=== PATIENT | female | born 1935 ===

== ENCOUNTER 2017-04-04 13:04 | Emergency (ER) | payer OTHER ==
[2017-04-04 13:04] VITALS: BMI 25.7
[2017-04-04 13:14] VITALS: BP 130/78; PULSE 81; RESP 18; TEMP 98.3; O2SAT 99
[2017-04-04] MEDS ORDERED: Iohexol 240 (50 ml) PO ONE (14:05)
--- NOTE | 2017-04-04 14:07 | ED PDOC ---
HPI: Abdomen Time Seen by Provider: 04/04/17 13:19 Chief Complaint (Nursing): GI Problem Chief Complaint (Provider): Abdominal Pain History Per: Patient Additional Complaint(s): Black stool and abdominal pain since this morning. Past Medical History Vital Signs: Last Vital Signs Temp 98.3 F 04/04/17 13:13 Pulse 81 04/04/17 13:13 Resp 18 04/04/17 13:13 BP 130/78 04/04/17 13:13 Pulse Ox 99 04/04/17 14:07 - Medical History PMH: Anemia, Anxiety, HTN, Hypercholesterolemia, Osteoporosis Denies: Diabetes, Chronic Kidney Disease - Family History Family History: States: Unknown Family Hx - Immunization History Hx Tetanus Toxoid Vaccination: No Hx Influenza Vaccination: No Hx Pneumococcal Vaccination: No - Home Medications Home Medications: Ambulatory Orders Medication Instructions Recorded ALPRAZolam [Xanax] 0.25 mg PO HS 02/24/16 Cholecalciferol [Vitamin D 1000 IU] 2,000 unit PO DAILY 02/24/16 Dicyclomine [Bentyl] 20 mg PO Q12 PRN #20 tab 02/24/16 Esomeprazole Magnesium [Nexium] 40 mg PO DAILY 02/24/16 Meclizine HCl [Meclizine HCl] 1 tab PO TID PRN 02/24/16 Metoprolol Succinate [Toprol XL] 25 mg PO DAILY 02/24/16 Rosuvastatin Calcium [Crestor] 20 mg PO DAILY 02/24/16 Ciprofloxacin [Cipro] 500 mg PO BID #6 tab 04/04/17 Metronidazole [Flagyl] 500 mg PO BID #14 tab 04/04/17 - Allergies Allergies/Adverse Reactions: Allergies Allergy/AdvReac Type Severity Reaction Status Date / Time Penicillins Allergy RASH Verified 02/24/16 01:12 - Laboratory Results Result Diagrams: 04/04/17 14:30 04/04/17 14:30 - ECG O2 Sat by Pulse Oximetry: 99 Disposition - Clinical Impression Clinical Impression: Colitis - Patient ED Disposition Is Patient to be Admitted: No - Disposition Disposition: Against Medical Advice Disposition Time: 19:53 Condition: STABLE Prescriptions: Ciprofloxacin [Cipro] 500 mg PO BID #6 tab Metronidazole [Flagyl] 500 mg PO BID #14 tab Instructions: Colitis (ED)
--- NOTE | 2017-04-04 14:27 | RAD ---
PROCEDURE: CHEST RADIOGRAPH, 1 VIEW HISTORY: med screening COMPARISON: 02/24/2016 FINDINGS: LUNGS: Clear. PLEURA: No pneumothorax or pleural fluid seen. CARDIOVASCULAR: No radiographic findings to suggest acute or significant cardiovascular disease. OSSEOUS STRUCTURES: No significant abnormalities. VISUALIZED UPPER ABDOMEN: Normal. OTHER FINDINGS: None. IMPRESSION: No active disease. No acute/significant interval changes.
[2017-04-04] MEDS ORDERED: Iohexol 240 (50 ml) ONE (14:38)
[2017-04-04 14:56] LABS: BASO % 0.9 % (0.0-2.0); EOS # 0.2 K/uL (0.0-0.7); EOS % 4.2 % (0.0-4.0); HEMOGLOBIN 10.8 g/dL (12.0-16.0); LYMPH % 22.8 % (20.0-40.0); MEAN CELL VOLUME 93.6 fl (81.0-99.0); MEAN CORPUSCULAR HEMOGLOBIN 32.4 pg (27.0-31.0); MEAN CORPUSCULAR HGB CONC 34.6 g/dL (33.0-37.0); MONO # 0.5 K/uL (0.0-0.8); NEUT # 2.7 K/uL (1.8-7.0); NEUT % 61.1 % (50.0-75.0); NRBC % 0.1 % (0.0-0.0); RBC 3.32 Mil/uL (3.80-5.20); RED CELL DISTRIBUTION WIDTH 13.3 % (11.5-14.5); WHITE BLOOD COUNT 4.5 K/uL (4.8-10.8)
[2017-04-04 15:27] LABS: ALB/GLOB RATIO 1.3 (1.0-2.1); ALBUMIN 4.1 g/dL (3.5-5.0); ALT/SGPT 39 U/L (9-52); AMYLASE 65 U/L (30-110); AST/SGOT 40 U/L (14-36); BLOOD UREA NITROGEN 14 mg/dl (7-17); CALCIUM 9.3 mg/dL (8.4-10.2); GFR AFRICAN-AMERICAN > 60; GFR NON-AFRICAN AMERICAN > 60; LIPASE 48 U/L (23-300)
[2017-04-04] MEDS ORDERED: Iohexol 300 100 ML IJ ONE (17:38)
[2017-04-04] MEDS ORDERED: Sodium Chloride 0.9% 50 ML IV ONE (17:39)
[2017-04-04 18:24] LABS: SQUAMOUS EPITHIAL 1 /hpf (0-5); URINE BILIRUBIN NEGATIVE (NEGATIVE); URINE BLOOD NEGATIVE (NEGATIVE); URINE CLARITY CLEAR (Clear); URINE COLOR COLORLESS (YELLOW); URINE GLUCOSE (UA) NEG (Normal); URINE LEUKOCYTE ESTERASE TRACE Leu/uL (Negative); URINE NITRATE NEGATIVE (NEGATIVE); URINE PROTEIN NEGATIVE (NEGATIVE); URINE UROBILINOGEN 0.2-1.0 mg/dL (0.2-1.0)
--- NOTE | 2017-04-04 18:47 | CT ---
PROCEDURE: CT Abdomen and Pelvis with contrast HISTORY: abdominal pain and melena COMPARISON: None. TECHNIQUE: CT scan of the abdomen and pelvis was performed after administration of intravenous contrast. Oral contrast was administered. Coronal and sagittal reformatted images were obtained. Contrast dose: 90 ml Omnipaque 300 Radiation dose: Total exam DLP = 614.29 MGy-cm. This CT exam was performed using one or more of the following dose reduction techniques: Automated exposure control, adjustment of the mA and/or kV according to patient size, and/or use of iterative reconstruction technique. FINDINGS: LOWER THORAX: There is a calcified nodule in the right middle lobe. There is linear atelectasis/scarring in the lingula and both lower lobes, worse in the right lower lobe. LIVER: The liver is normal in size and there is homogeneous enhancement. There is a 9 mm simple cyst in the left hepatic lobe. No intrahepatic biliary ductal dilatation. GALLBLADDER AND BILE DUCTS: There are no calcified gallstones. PANCREAS: The pancreas is normal in size and there is homogeneous enhancement without focal mass or ductal dilatation. SPLEEN: The spleen is normal in size without focal lesion. ADRENALS: Both adrenal glands are normal in size without discrete nodule. KIDNEYS AND URETERS: Both kidneys are normal in size and there is homogeneous enhancement without hydronephrosis or nephrolithiasis. VASCULATURE: No aortic aneurysm. There are advanced atherosclerotic aortoiliac calcifications. BOWEL: The small bowel loops are normal in caliber. There is mild sigmoid diverticulosis. There is apparent mild mural thickening in the sigmoid colon and rectum. APPENDIX: Normal appendix. PERITONEUM: No free fluid. No free air. LYMPH NODES: No enlarged lymph nodes. BLADDER: Unremarkable. REPRODUCTIVE: The uterus is normal in size. There are few foci of air in the cervical canal. BONES: Diffuse bone demineralization and multilevel degenerative disc disease. No acute fracture. OTHER FINDINGS: There is a small sliding hiatal hernia. IMPRESSION: 1. Mild sigmoid diverticulosis. Apparent mild mural thickening in the sigmoid colon and rectum could represent underdistention or nonspecific acute/ chronic diverticulitis and proctitis. Clinical correlation and follow-up is advised. 2. No evidence of acute appendicitis. 3. No evidence of cholelithiasis or biliary dilatation.
--- NOTE | 2017-04-05 12:40 | CARD ---
APPROVED REPORT EKG Measurement Heart [id number] ID [id number] <Conclusion> Normal sinus rhythm Normal ECG
== END 2017-04-04 20:38 | disposition left against medical advice (07) ==
LOC: H.ER 13:04
DX: K57.30 Diverticulosis of large intestine without perforation or abscess without bleeding (principal)
CPT/HCPCS: 71010; 74177; 80053; 81003; 82150; 83690; 84484; 85025; 93005; 99284; Q9966; Q9967

== ENCOUNTER 2017-10-26 13:35 | Inpatient (IN) | payer MEDICARE, MEDICAID ==
[2017-10-26 13:35] VITALS: BMI 25.7
[2017-10-26] MEDS ORDERED: Sodium Chloride 0.9% 1,000 ML IV STA (13:59)
[2017-10-26 14:43] LABS: ABG ALLEN TEST YES; ARTERIAL BLOOD GAS HCO3 23.7 mmol/L (21-28); ARTERIAL BLOOD GAS HEMOGLOBIN 9.6 g/dL (11.7-17.4); ARTERIAL BLOOD GAS O2 CONTENT 12.9 ML/dL (15-23); ARTERIAL BLOOD GAS O2 SAT 99.5 % (95-98); ARTERIAL BLOOD GAS PCO2 37 mm/Hg (35-45); ARTERIAL BLOOD GAS PO2 70 mm/Hg (80-100)
[2017-10-26 14:47] LABS: BASO % 0.6 % (0.0-2.0); EOS # 0.1 K/uL (0.0-0.7); EOS % 0.9 % (0.0-4.0); HEMOGLOBIN 11.5 g/dL (12.0-16.0); LYMPH # 0.6 K/uL (1.0-4.3); LYMPH % 8.9 % (20.0-40.0); MEAN CELL VOLUME 92.2 fl (81.0-99.0); MEAN CORPUSCULAR HEMOGLOBIN 32.2 pg (27.0-31.0); MEAN CORPUSCULAR HGB CONC 34.9 g/dL (33.0-37.0); MEAN PLATELET VOLUME 9.9 fl (7.2-11.7); MONO # 0.8 K/uL (0.0-0.8); MONO % 10.9 % (0.0-10.0); NEUT # 5.7 K/uL (1.8-7.0); NEUT % 78.7 % (50.0-75.0); NRBC % 0.1 % (0.0-0.0); PLATELET COUNT 194 K/uL (130-400); RBC 3.58 Mil/uL (3.80-5.20); RED CELL DISTRIBUTION WIDTH 13.1 % (11.5-14.5); WHITE BLOOD COUNT 7.3 K/uL (4.8-10.8)
[2017-10-26 15:02] LABS: ALB/GLOB RATIO 1.4 (1.0-2.1); ALBUMIN 4.3 g/dL (3.5-5.0); ALT/SGPT 29 U/L (9-52); AST/SGOT 32 U/L (14-36); BLOOD UREA NITROGEN 11 mg/dl (7-17); CALCIUM 9.6 mg/dL (8.4-10.2); GFR AFRICAN-AMERICAN > 60; GFR NON-AFRICAN AMERICAN > 60; LIPASE 40 U/L (23-300); MAGNESIUM 1.9 MG/DL (1.6-2.3)
[2017-10-26 15:06] LABS: INR 1.1 (0.9-1.2); PARTIAL THROMBOPLASTIN TIME 25.2 Seconds (25.6-37.1); PROTHROMBIN TIME 11.7 Seconds (9.8-13.1)
[2017-10-26] MEDS ORDERED: Etomidate 20 mg/10ml Inj IV STA (15:09)
[2017-10-26] MEDS ORDERED: Etomidate 20 mg/10ml Inj IV ONE (15:14)
[2017-10-26] MEDS ORDERED: Succinylcholine 200 mg/10 ml Inj IV ONE ×2 (15:28→15:43)
[2017-10-26 15:54] LABS: BANDS 3 % (0-2); LYMPHOCYTE 10 % (20-50); MONOCYTE 14 % (0-10); NEUTROPHIL 73 % (42-75); PLATELET ESTIMATE NORMAL (NORMAL); TOTAL CELLS COUNTED 100
[2017-10-26 15:55] LABS: HYPOCHROMIC SLIGHT
--- NOTE | 2017-10-26 15:58 | CT ---
PROCEDURE: CT HEAD WITHOUT CONTRAST. HISTORY: AMS COMPARISON: None available. TECHNIQUE: Axial computed tomography images were obtained through the head/brain without intravenous contrast. Radiation dose: Total exam DLP = 1932.24 mGy-cm. This CT exam was performed using one or more of the following dose reduction techniques: Automated exposure control, adjustment of the mA and/or kV according to patient size, and/or use of iterative reconstruction technique. FINDINGS: HEMORRHAGE: Extra-axial fluid collection/acute subdural hematoma left parietal region. Maximum thickness 12.7 mm. Effacement of cortical sulci on the right. Midline shift is approximately 1.5 cm. There is a large parenchymal hemorrhagic process on the high right parietal region 3.2 x 5.5 cm. There is an additional intraparenchymal hemorrhage interposed between the posterior horn of the left lateral ventricle and the falx. BRAIN: Effacement of basilar cisterns, midline shifts consistent with herniation. VENTRICLES: Eight effacement of the right lateral ventricle. Trapped left lateral ventricle, contralateral dilatation of the left lateral ventricle identified. Edema, mass effect and a component of herniation has efface the 4th ventricle. CALVARIUM: Unremarkable. PARANASAL SINUSES: Unremarkable as visualized. No significant inflammatory changes. MASTOID AIR CELLS: Unremarkable as visualized. No inflammatory changes. OTHER FINDINGS: None. IMPRESSION: 1. Acute right subdural hematoma. 2. Acute right parietal hemorrhage. 3. Acute hemorrhage interposed between the falx and the posterior horn of the left lateral ventricle. 4. Edema, mass effect, 1.5 cm midline shift. Effacement of basilar cisterns and downward herniation identified. Communication of results: Study completed at 15:00. Notification by a Radiology Department personal 15:35. Communication of results at 15:45. I discussed findings directly with Dr. simon montes.
[2017-10-26] MEDS ORDERED: Mannitol 12.5 gm/50 ml Inj IV ONE (16:05)
--- NOTE | 2017-10-26 16:15 | RAD ---
HISTORY: AMS COMPARISON: Chest radiograph dated 04/04/2017. FINDINGS: LUNGS: Right middle lobe calcified granuloma redemonstrated. No active pulmonary disease. PLEURA: No significant pleural effusion identified, no pneumothorax apparent. CARDIOVASCULAR: Atherosclerotic aortic calcifications. Cardiomediastinal silhouette within normal limits. OSSEOUS STRUCTURES: Unchanged. VISUALIZED UPPER ABDOMEN: Normal. OTHER FINDINGS: None. IMPRESSION: No active disease.
[2017-10-26] MEDS ORDERED: Dexamethasone 4 mg/1 ml IV ONE (16:30)
--- NOTE | 2017-10-26 16:42 | ED PDOC ---
HPI: General Adult Time Seen by Provider: 10/26/17 13:58 Chief Complaint (Nursing): Weakness/Neurological Deficit Chief Complaint (Provider): flu like symptoms, AMS History Per: Family (niece), Filling Technician (maria alejandra) History/Exam Limitations: clinical condition Onset/Duration Of Symptoms: Gradual Current Symptoms Are (Timing): Still Present Severity: Severe Recently: Treated By A Physician Additional Complaint(s): 82yo female arrives w/ niece who states pt developed cough yesterday, this morning c/o body aches and fever, becoming weak and on arrival to ED became obtunded. History is limited due to AMS. Patient found to be febrile on arrival. Per niece no falls, focal weakness, change in speech or c/o headache over the last 6 hours. Past Medical History Reviewed: Historical Data, Nursing Documentation, Vital Signs Vital Signs: Last Vital Signs Temp 102.4 F H 10/26/17 14:18 Pulse 106 H 10/26/17 13:49 Resp 21 10/26/17 13:49 BP 158/82 H 10/26/17 13:49 Pulse Ox 97 10/26/17 13:49 - Medical History PMH: Anemia, Anxiety, HTN, Hypercholesterolemia, Osteoporosis Denies: Diabetes, Chronic Kidney Disease - Surgical History Other surgeries: unknown - Family History Family History: States: Unknown Family Hx - Living Arrangements Living Arrangements: With Family - Social History Current smoker - smoking cessation education provided: No - Immunization History Hx Tetanus Toxoid Vaccination: No Hx Influenza Vaccination: No Hx Pneumococcal Vaccination: No - Home Medications Home Medications: Ambulatory Orders Medication Instructions Recorded Metoprolol Succinate [Toprol XL] 25 mg PO DAILY 02/24/16 Alendronate [Fosamax] 70 mg PO QWK 10/26/17 Atorvastatin [Lipitor] 20 mg PO HS 10/26/17 Calcium Carb/Mag Oxide/Zinc Ox 1 tab PO DAILY 10/26/17 [[id number] Caplet] Cholecalciferol (Vitamin D3) 2,000 unit PO DAILY 10/26/17 [Vitamin D3] Ginkgo Biloba [Ginkgo Biloba] 1 cap PO DAILY 10/26/17 Icosapent Ethyl [Vascepa] 1 gm PO BID 10/26/17 Losartan [Cozaar] 25 mg PO DAILY 10/26/17 Meclizine [Antivert] 12.5 mg PO Q8H PRN 10/26/17 - Allergies Allergies/Adverse Reactions: Allergies Allergy/AdvReac Type Severity Reaction Status Date / Time Penicillins Allergy RASH Verified 10/26/17 13:48 Review of Systems Review Of Systems: ROS cannot be obtained secondary to pt's inabilty to answer questions. Physical Exam - Reviewed Nursing Documentation Reviewed: Yes Vital Signs Reviewed: Yes - Physical Exam Appears: Positive for: In Acute Distress (obtunded, localizes to pain) Head Exam: Positive for: ATRAUMATIC, NORMAL INSPECTION, NORMOCEPHALIC Skin: Positive for: Normal Color, Warm, DRY Eye Exam: Positive for: EOMI, Normal appearance, PERRL ENT: Positive for: Normal ENT Inspection Neck: Positive for: Normal, Painless ROM Cardiovascular/Chest: Positive for: Regular Rate, Rhythm Respiratory: Positive for: Other (coarse ). Negative for: Respiratory Distress Gastrointestinal/Abdominal: Positive for: Bowel Sounds, Soft. Negative for: Tenderness Extremity: Positive for: Normal ROM. Negative for: Swelling Neurologic/Psych: Positive for: Other (obtunded, GCS 7, localizes to pain, pupils 2mm b/l sluggish, corneal reflex intact) - Laboratory Results Result Diagrams: 10/26/17 14:20 10/26/17 14:20 - ECG O2 Sat by Pulse Oximetry: 97 Medical Decision Making Medical Decision Making: workup for fever with AMS initiated r/o sepsis, CVA/ICH, dehydration/metabolic derangement, etc. Family denied stroke like symptoms of focal weakness, change in speech or coordination prior to arrival. Became lethargic en route to ED. BP adequate labs obtained ABG CO2 37, mild hypoxia +influenza chem/cbc unremarkable CT brain reviewed CT brain reveals large ICH, Dr Burroughs neurosurgery contacted immediately, case discussed approx [id number]. Will evaluate patient in ED. Dr Quintana neurology contacted, rec decadron and FFP Patient reportedly does not take ASA regularly Family updated on status, concern for life threatening ICH with grave prognosis , but neurosurg to eval for OR candidacy. Dr Nuñez in ED 430p Dr Sargent covering PMD Dr Wang contacted for admission Droplet isolation due to +flu Accession No. : [id number] Patient Name / ID : ISSAC FRIEDMAN T / [id number] Exam Date : 10/26/2017 14:58:26 ( Approved ) Study Comment : Sex / Age : F / 82Y Creator : Henry Be MD Dictator : Henry Be MD Matcher : Molecular Biologist : Henry Be MD Approver2 : Report Date : 10/26/2017 15:56:12 My Comment : PROCEDURE: CT HEAD WITHOUT CONTRAST. HISTORY: AMS COMPARISON: None available. TECHNIQUE: Axial computed tomography images were obtained through the head/brain without intravenous contrast. Radiation dose: Total exam DLP = 1932.24 mGy-cm. This CT exam was performed using one or more of the following dose reduction techniques: Automated exposure control, adjustment of the mA and/or kV according to patient size, and/or use of iterative reconstruction technique. FINDINGS: HEMORRHAGE: Extra-axial fluid collection/acute subdural hematoma left parietal region. Maximum thickness 12.7 mm. Effacement of cortical sulci on the right. Midline shift is approximately 1.5 cm. There is a large parenchymal hemorrhagic process on the high right parietal region 3.2 x 5.5 cm. There is an additional intraparenchymal hemorrhage interposed between the posterior horn of the left lateral ventricle and the falx. BRAIN: Effacement of basilar cisterns, midline shifts consistent with herniation. VENTRICLES: Eight effacement of the right lateral ventricle. Trapped left lateral ventricle , contralateral dilatation of the left lateral ventricle identified. Edema, mass effect and a component of herniation has efface the 4th ventricle. CALVARIUM: Unremarkable. PARANASAL SINUSES: Unremarkable as visualized. No significant inflammatory changes. MASTOID AIR CELLS: Unremarkable as visualized. No inflammatory changes. OTHER FINDINGS: None. IMPRESSION: 1. Acute right subdural hematoma. 2. Acute right parietal hemorrhage. 3. Acute hemorrhage interposed between the falx and the posterior horn of the left lateral ventricle. 4. Edema, mass effect, 1.5 cm midline shift. Effacement of basilar cisterns and downward herniation identified. Communication of results: Study completed at 15:00. Notification by a Radiology Department personal 15:35. Communication of results at 15:45. I discussed findings directly with Dr. simon montes.
[2017-10-26 17:21] LABS: SQUAMOUS EPITHIAL 1 /hpf (0-5); URINE BACTERIA MANY (<OCC); URINE BILIRUBIN NEGATIVE (NEGATIVE); URINE BLOOD NEGATIVE (NEGATIVE); URINE CLARITY SLIGHTY-CLOUDY (Clear); URINE COLOR YELLOW (YELLOW); URINE GLUCOSE (UA) NEG (Normal); URINE LEUKOCYTE ESTERASE TRACE Leu/uL (Negative); URINE NITRATE POSITIVE (NEGATIVE); URINE PROTEIN NEGATIVE (NEGATIVE); URINE UROBILINOGEN 0.2-1.0 mg/dL (0.2-1.0)
--- NOTE | 2017-10-26 17:36 | CP.CCUPN ---
CCU Subjective - Physician Review Subjective (Free Text): 82F with PMH: HTN, on Losartan, ASA; mild Dementia: admitted via ER after family c/o recent cough, body aches, vomiting and progressive lethargy. Initial eval in ER with CT brain showed moderate size R SDH and deep R parietal- occipital intraparenchymal bleed; with associated R hemispheric edema and loss of 4th ventricle. Patient orally intubated in ED after sedation with Succinylcholine and Etomidate. Presently in deep coma, breathing 15 on AC 12, SPO2 100% on 60 oxygen. Febrile to 101.5F, BP 130 systolic, HR 82 in irregular sinus rhythm. Daughter and granddaughters at the bedside. Mannitol and Decadron ordered and awaiting first doses. Daughter denies any recent falls or head trauma over the past several weeks nor recent days. Patient is fully functional with ADLs, ROS: No other pertinent negs or positives on 10+ system review. Allergies: Penicillin Home Meds: Losartan, VIt D, Gingko biloba, Vit D3, Lipitor, Fosamax, Vascepa, Antivert, Toprol XL. PMSFH: All other Nursing and physician documentation reviewed to date; no new pertinent info noted relevant to current medical problems. CXR: #1 clear lung alanis. CXR #2: ETT down LAVON, clear lung alanis, large gastric air. IMPRESSION / MAJOR PROBLEMS NOW: 1. R SDH ( nontraumatic) with R intraparenchymal Hemorrhage with local edema dn midline shift, obliteration of 4th ventricle, and blood seen in left lateral ventricle 2. HTN 3. Influenza Viral Syndrome PLAN: 1. Urgent Neurosurgical and Neurology eval for appropriateness of any surgical intervention. 2. Mannitol, Decadron, AED, trial at Hyperventilation to PCO2 approx 28-30, Neurochecks, Seizure precautions, HOB elevation for now. Repeat brain imaging in AM if no surgical intervention. 3. ?? Contribution of Gingko and ASA use and impact on platelet function. Consider FFP, platelet transfusion. 4. Watch for central DI. 5. Keep Systolic BP no higher than 140; Labetalol prn and / or Cardene infusion. 6. Tamiflu 7. Re-position ETT 3 cm upward; NGT gastric decompression. 7. Notify [facility]. Time spent with this patient did not overlap with any other provider's medical or critical care time. Additionally the code selected for the services rendered in this note includes the time spent: talking to the patients family, associated physicians and reviewing hospital data/results not listed here which extended to a total of 50 minutes. CCU Objective - Vital Signs / Intake & Output Vital Signs (Last 4 hours): Vital Signs Temp Pulse Resp BP Pulse Ox 10/26/17 16:51 99.1 F 88 16 122/68 97 10/26/17 16:49 97 10/26/17 14:18 102.4 F H 10/26/17 13:49 101.5 F H 106 H 21 158/82 H 97 Intake and Output (Last 8hrs): Intake & Output 10/26/17 10/26/17 10/26/17 06:59 14:59 22:59 Weight 135 lb - Physical Exam Head: Positive for: Atraumatic, Normocephalic Pupils: Positive for: Non-Reactive (2 mm size, midline position), Other (no dolls eyes, no corneal reflexes) Conjunctiva: Negative for: Icteric Mouth: Positive for: Moist Mucous Membranes Neck: Positive for: Normal Range of Motion. Negative for: JVD Respiratory/Chest: Positive for: Clear to Auscultation Cardiovascular: Positive for: Regular Rate and Rhythm, Normal S1, S2. Negative for: Murmurs, Rub Abdomen: Positive for: Normal Bowel Sounds. Negative for: Tenderness, Distention, Mass/Organomegaly Lower Extremity: Positive for: Edema, NORMAL PULSES. Negative for: CALF TENDERNESS, Cyanosis Neurological: Positive for: Other (GCS = 3T) Skin: Positive for: Warm, Dry. Negative for: Rashes Psychiatric: Positive for: Other (Comatose) - Patient Studies Lab Studies: Lab Studies 10/26/17 10/26/17 10/26/17 Range/Units 17:00 16:57 14:20 WBC (4.8-10.8) K/uL RBC (3.80-5.20) Mil/uL Hgb (12.0-16.0) g/dL Hct (34.0-47.0) % MCV (81.0-99.0) fl MCH (27.0-31.0) pg MCHC (33.0-37.0) g/dL RDW (11.5-14.5) % Plt Count (130-400) K/uL MPV (7.2-11.7) fl Neut % (Auto) (50.0-75.0) % Lymph % (Auto) (20.0-40.0) % [place] % (Auto) (0.0-10.0) % Eos % (Auto) (0.0-4.0) % Baso % (Auto) (0.0-2.0) % Neut # (Auto) (1.8-7.0) K/uL Lymph # (Auto) (1.0-4.3) K/uL [place] # (Auto) (0.0-0.8) K/uL Eos # (Auto) (0.0-0.7) K/uL Baso # (Auto) (0.0-0.2) K/uL Neutrophils % (Manual) (42-75) % Band Neutrophils % (0-2) % Lymphocytes % (Manual) (20-50) % Monocytes % (Manual) (0-10) % Platelet Estimate (NORMAL) Hypochromasia (manual) PT 11.7 (9.8-13.1) Seconds INR 1.1 (0.9-1.2) APTT 25.2 L (25.6-37.1) Seconds pCO2 (35-45) mm/Hg pO2 (80-100) mm/Hg HCO3 (21-28) mmol/L ABG pH (7.35-7.45) ABG Total CO2 (22-28) mmol/L ABG O2 Saturation (95-98) % ABG O2 Content (15-23) ML/dL ABG Base Excess (-2.0-3.0) mmol/L ABG Hemoglobin (11.7-17.4) g/dL ABG Carboxyhemoglobin (0.5-1.5) % POC ABG HHb (Measured) (0.0-5.0) % ABG Methemoglobin (0.0-3.0) % ABG O2 Capacity (16-24) mL/dL Jed Test A-a O2 Difference mm/Hg Hgb O2 Saturation (95.0-98.0) % FiO2 % Blood Gas Comments Sodium (132-148) mmol/l Potassium (3.6-5.0) MMOL/L Chloride (98-107) mmol/L Carbon Dioxide (22-30) mmol/L Anion Gap (10-20) BUN (7-17) mg/dl Creatinine (0.7-1.2) mg/dl Est GFR ( Amer) Est GFR (Non-Af Amer) POC Glucose (mg/dL) 158 H (65-110) mg/dL Random Glucose (65-105) mg/dL Calcium (8.4-10.2) mg/dL Phosphorus (2.5-4.5) mg/dl Magnesium (1.6-2.3) MG/DL Total Bilirubin (0.2-1.3) mg/dl AST (14-36) U/L ALT (9-52) U/L Alkaline Phosphatase (38-126) U/L Total Protein (6.3-8.2) G/DL Albumin (3.5-5.0) g/dL Globulin (2.2-3.9) gm/dL Albumin/Globulin Ratio (1.0-2.1) Lipase (23-300) U/L Urine Color Yellow (YELLOW) Urine Clarity Slighty-cloudy (Clear) Urine pH 6.0 (5.0-8.0) Ur Specific [place] 1.014 (1.003-1.030) Urine Protein Negative (NEGATIVE) mg/dL Urine Glucose (UA) Neg (Normal) mg/dL Urine Ketones 20 (NEGATIVE) mg/dL Urine Blood Negative (NEGATIVE) Urine Nitrate Positive H (NEGATIVE) Urine Bilirubin Negative (NEGATIVE) Urine Urobilinogen 0.2-1.0 (0.2-1.0) mg/dL Ur Leukocyte Esterase Trace (Negative) Wilbert/uL Urine RBC (Auto) 3 (0-3) /hpf Urine Microscopic WBC 4 (0-5) /hpf Ur Squamous Epith Cells 1 (0-5) /hpf Urine Bacteria Many H (<OCC) Influenza Typ A,B (EIA) (NEGATIVE) 10/26/17 10/26/17 10/26/17 Range/Units 14:20 14:20 14:16 WBC 7.3 D (4.8-10.8) K/uL RBC 3.58 L (3.80-5.20) Mil/uL Hgb 11.5 L (12.0-16.0) g/dL Hct 33.0 L (34.0-47.0) % MCV 92.2 (81.0-99.0) fl MCH 32.2 H (27.0-31.0) pg MCHC 34.9 (33.0-37.0) g/dL RDW 13.1 (11.5-14.5) % Plt Count 194 (130-400) K/uL MPV 9.9 (7.2-11.7) fl Neut % (Auto) 78.7 H (50.0-75.0) % Lymph % (Auto) 8.9 L (20.0-40.0) % [place] % (Auto) 10.9 H (0.0-10.0) % Eos % (Auto) 0.9 (0.0-4.0) % Baso % (Auto) 0.6 (0.0-2.0) % Neut # (Auto) 5.7 (1.8-7.0) K/uL Lymph # (Auto) 0.6 L (1.0-4.3) K/uL [place] # (Auto) 0.8 (0.0-0.8) K/uL Eos # (Auto) 0.1 (0.0-0.7) K/uL Baso # (Auto) 0.0 (0.0-0.2) K/uL Neutrophils % (Manual) 73 (42-75) % Band Neutrophils % 3 H (0-2) % Lymphocytes % (Manual) 10 L (20-50) % Monocytes % (Manual) 14 H (0-10) % Platelet Estimate Normal (NORMAL) Hypochromasia (manual) Slight PT (9.8-13.1) Seconds INR (0.9-1.2) APTT (25.6-37.1) Seconds pCO2 (35-45) mm/Hg pO2 (80-100) mm/Hg HCO3 (21-28) mmol/L ABG pH (7.35-7.45) ABG Total CO2 (22-28) mmol/L ABG O2 Saturation (95-98) % ABG O2 Content (15-23) ML/dL ABG Base Excess (-2.0-3.0) mmol/L ABG Hemoglobin (11.7-17.4) g/dL ABG Carboxyhemoglobin (0.5-1.5) % POC ABG HHb (Measured) (0.0-5.0) % ABG Methemoglobin (0.0-3.0) % ABG O2 Capacity (16-24) mL/dL Jed Test A-a O2 Difference mm/Hg Hgb O2 Saturation (95.0-98.0) % FiO2 % Blood Gas Comments Sodium 132 (132-148) mmol/l Potassium 3.7 (3.6-5.0) MMOL/L Chloride 96 L (98-107) mmol/L Carbon Dioxide 25 (22-30) mmol/L Anion Gap 15 (10-20) BUN 11 (7-17) mg/dl Creatinine 0.6 L (0.7-1.2) mg/dl Est GFR ( Amer) > 60 Est GFR (Non-Af Amer) > 60 POC Glucose (mg/dL) (65-110) mg/dL Random Glucose 132 H (65-105) mg/dL Calcium 9.6 (8.4-10.2) mg/dL Phosphorus 3.5 (2.5-4.5) mg/dl Magnesium 1.9 (1.6-2.3) MG/DL Total Bilirubin 0.6 (0.2-1.3) mg/dl AST 32 (14-36) U/L ALT 29 (9-52) U/L Alkaline Phosphatase 74 (38-126) U/L Total Protein 7.3 (6.3-8.2) G/DL Albumin 4.3 (3.5-5.0) g/dL Globulin 3.0 (2.2-3.9) gm/dL Albumin/Globulin Ratio 1.4 (1.0-2.1) Lipase 40 (23-300) U/L Urine Color (YELLOW) Urine Clarity (Clear) Urine pH (5.0-8.0) Ur Specific [place] (1.003-1.030) Urine Protein (NEGATIVE) mg/dL Urine Glucose (UA) (Normal) mg/dL Urine Ketones (NEGATIVE) mg/dL Urine Blood (NEGATIVE) Urine Nitrate (NEGATIVE) Urine Bilirubin (NEGATIVE) Urine Urobilinogen (0.2-1.0) mg/dL Ur Leukocyte Esterase (Negative) Wilbert/uL Urine RBC (Auto) (0-3) /hpf Urine Microscopic WBC (0-5) /hpf Ur Squamous Epith Cells (0-5) /hpf Urine Bacteria (<OCC) Influenza Typ A,B (EIA) Pos for influenza a H (NEGATIVE) 10/26/17 10/26/17 Range/Units 14:09 13:58 WBC (4.8-10.8) K/uL RBC (3.80-5.20) Mil/uL Hgb (12.0-16.0) g/dL Hct (34.0-47.0) % MCV (81.0-99.0) fl MCH (27.0-31.0) pg MCHC (33.0-37.0) g/dL RDW (11.5-14.5) % Plt Count (130-400) K/uL MPV (7.2-11.7) fl Neut % (Auto) (50.0-75.0) % Lymph % (Auto) (20.0-40.0) % [place] % (Auto) (0.0-10.0) % Eos % (Auto) (0.0-4.0) % Baso % (Auto) (0.0-2.0) % Neut # (Auto) (1.8-7.0) K/uL Lymph # (Auto) (1.0-4.3) K/uL [place] # (Auto) (0.0-0.8) K/uL Eos # (Auto) (0.0-0.7) K/uL Baso # (Auto) (0.0-0.2) K/uL Neutrophils % (Manual) (42-75) % Band Neutrophils % (0-2) % Lymphocytes % (Manual) (20-50) % Monocytes % (Manual) (0-10) % Platelet Estimate (NORMAL) Hypochromasia (manual) PT (9.8-13.1) Seconds INR (0.9-1.2) APTT (25.6-37.1) Seconds pCO2 37 (35-45) mm/Hg pO2 70 L (80-100) mm/Hg HCO3 23.7 (21-28) mmol/L ABG pH 7.40 (7.35-7.45) ABG Total CO2 24.0 (22-28) mmol/L ABG O2 Saturation 99.5 H (95-98) % ABG O2 Content 12.9 L (15-23) ML/dL ABG Base Excess -1.6 (-2.0-3.0) mmol/L ABG Hemoglobin 9.6 L (11.7-17.4) g/dL ABG Carboxyhemoglobin 2.7 H (0.5-1.5) % POC ABG HHb (Measured) 0.5 (0.0-5.0) % ABG Methemoglobin 1.9 (0.0-3.0) % ABG O2 Capacity 13.0 L (16-24) mL/dL Jed Test Yes A-a O2 Difference 119.0 mm/Hg Hgb O2 Saturation 94.8 L (95.0-98.0) % FiO2 33.0 % Blood Gas Comments 3l/m nc,rr Sodium (132-148) mmol/l Potassium (3.6-5.0) MMOL/L Chloride (98-107) mmol/L Carbon Dioxide (22-30) mmol/L Anion Gap (10-20) BUN (7-17) mg/dl Creatinine (0.7-1.2) mg/dl Est GFR ( Amer) Est GFR (Non-Af Amer) POC Glucose (mg/dL) 128 H (65-110) mg/dL Random Glucose (65-105) mg/dL Calcium (8.4-10.2) mg/dL Phosphorus (2.5-4.5) mg/dl Magnesium (1.6-2.3) MG/DL Total Bilirubin (0.2-1.3) mg/dl AST (14-36) U/L ALT (9-52) U/L Alkaline Phosphatase (38-126) U/L Total Protein (6.3-8.2) G/DL Albumin (3.5-5.0) g/dL Globulin (2.2-3.9) gm/dL Albumin/Globulin Ratio (1.0-2.1) Lipase (23-300) U/L Urine Color (YELLOW) Urine Clarity (Clear) Urine pH (5.0-8.0) Ur Specific [place] (1.003-1.030) Urine Protein (NEGATIVE) mg/dL Urine Glucose (UA) (Normal) mg/dL Urine Ketones (NEGATIVE) mg/dL Urine Blood (NEGATIVE) Urine Nitrate (NEGATIVE) Urine Bilirubin (NEGATIVE) Urine Urobilinogen (0.2-1.0) mg/dL Ur Leukocyte Esterase (Negative) Wilbert/uL Urine RBC (Auto) (0-3) /hpf Urine Microscopic WBC (0-5) /hpf Ur Squamous Epith Cells (0-5) /hpf Urine Bacteria (<OCC) Influenza Typ A,B (EIA) (NEGATIVE) Laboratory Results - last 24 hr 10/26/17 10/26/17 10/26/17 13:58 14:09 14:16 WBC RBC Hgb Hct MCV MCH MCHC RDW Plt Count MPV Neut % (Auto) Lymph % (Auto) [place] % (Auto) Eos % (Auto) Baso % (Auto) Neut # (Auto) Lymph # (Auto) [place] # (Auto) Eos # (Auto) Baso # (Auto) Neutrophils % (Manual) Band Neutrophils % Lymphocytes % (Manual) Monocytes % (Manual) Platelet Estimate Hypochromasia (manual) PT INR APTT pCO2 37 pO2 70 L HCO3 23.7 ABG pH 7.40 ABG Total CO2 24.0 ABG O2 Saturation 99.5 H ABG O2 Content 12.9 L ABG Base Excess -1.6 ABG Hemoglobin 9.6 L ABG Carboxyhemoglobin 2.7 H POC ABG HHb (Measured) 0.5 ABG Methemoglobin 1.9 ABG O2 Capacity 13.0 L Jed Test Yes A-a O2 Difference 119.0 Hgb O2 Saturation 94.8 L FiO2 33.0 Blood Gas Comments 3l/m nc,rr Sodium Potassium Chloride Carbon Dioxide Anion Gap BUN Creatinine Est GFR ( Amer) Est GFR (Non-Af Amer) POC Glucose (mg/dL) 128 H Random Glucose Calcium Phosphorus Magnesium Total Bilirubin AST ALT Alkaline Phosphatase Total Protein Albumin Globulin Albumin/Globulin Ratio Lipase Urine Color Urine Clarity Urine pH Ur Specific [place] Urine Protein Urine Glucose (UA) Urine Ketones Urine Blood Urine Nitrate Urine Bilirubin Urine Urobilinogen Ur Leukocyte Esterase Urine RBC (Auto) Urine Microscopic WBC Ur Squamous Epith Cells Urine Bacteria Influenza Typ A,B (EIA) Pos for influenza a H 10/26/17 10/26/17 10/26/17 14:20 14:20 14:20 WBC 7.3 D RBC 3.58 L Hgb 11.5 L Hct 33.0 L MCV 92.2 MCH 32.2 H MCHC 34.9 RDW 13.1 Plt Count 194 MPV 9.9 Neut % (Auto) 78.7 H Lymph % (Auto) 8.9 L [place] % (Auto) 10.9 H Eos % (Auto) 0.9 Baso % (Auto) 0.6 Neut # (Auto) 5.7 Lymph # (Auto) 0.6 L [place] # (Auto) 0.8 Eos # (Auto) 0.1 Baso # (Auto) 0.0 Neutrophils % (Manual) 73 Band Neutrophils % 3 H Lymphocytes % (Manual) 10 L Monocytes % (Manual) 14 H Platelet Estimate Normal Hypochromasia (manual) Slight PT 11.7 INR 1.1 APTT 25.2 L pCO2 pO2 HCO3 ABG pH ABG Total CO2 ABG O2 Saturation ABG O2 Content ABG Base Excess ABG Hemoglobin ABG Carboxyhemoglobin POC ABG HHb (Measured) ABG Methemoglobin ABG O2 Capacity Jed Test A-a O2 Difference Hgb O2 Saturation FiO2 Blood Gas Comments Sodium 132 Potassium 3.7 Chloride 96 L Carbon Dioxide 25 Anion Gap 15 BUN 11 Creatinine 0.6 L Est GFR ( Amer) > 60 Est GFR (Non-Af Amer) > 60 POC Glucose (mg/dL) Random Glucose 132 H Calcium 9.6 Phosphorus 3.5 Magnesium 1.9 Total Bilirubin 0.6 AST 32 ALT 29 Alkaline Phosphatase 74 Total Protein 7.3 Albumin 4.3 Globulin 3.0 Albumin/Globulin Ratio 1.4 Lipase 40 Urine Color Urine Clarity Urine pH Ur Specific [place] Urine Protein Urine Glucose (UA) Urine Ketones Urine Blood Urine Nitrate Urine Bilirubin Urine Urobilinogen Ur Leukocyte Esterase Urine RBC (Auto) Urine Microscopic WBC Ur Squamous Epith Cells Urine Bacteria Influenza Typ A,B (EIA) 10/26/17 10/26/17 16:57 17:00 WBC RBC Hgb Hct MCV MCH MCHC RDW Plt Count MPV Neut % (Auto) Lymph % (Auto) [place] % (Auto) Eos % (Auto) Baso % (Auto) Neut # (Auto) Lymph # (Auto) [place] # (Auto) Eos # (Auto) Baso # (Auto) Neutrophils % (Manual) Band Neutrophils % Lymphocytes % (Manual) Monocytes % (Manual) Platelet Estimate Hypochromasia (manual) PT INR APTT pCO2 pO2 HCO3 ABG pH ABG Total CO2 ABG O2 Saturation ABG O2 Content ABG Base Excess ABG Hemoglobin ABG Carboxyhemoglobin POC ABG HHb (Measured) ABG Methemoglobin ABG O2 Capacity Jed Test A-a O2 Difference Hgb O2 Saturation FiO2 Blood Gas Comments Sodium Potassium Chloride Carbon Dioxide Anion Gap BUN Creatinine Est GFR ( Amer) Est GFR (Non-Af Amer) POC Glucose (mg/dL) 158 H Random Glucose Calcium Phosphorus Magnesium Total Bilirubin AST ALT Alkaline Phosphatase Total Protein Albumin Globulin Albumin/Globulin Ratio Lipase Urine Color Yellow Urine Clarity Slighty-cloudy Urine pH 6.0 Ur Specific [place] 1.014 Urine Protein Negative Urine Glucose (UA) Neg Urine Ketones 20 Urine Blood Negative Urine Nitrate Positive H Urine Bilirubin Negative Urine Urobilinogen 0.2-1.0 Ur Leukocyte Esterase Trace Urine RBC (Auto) 3 Urine Microscopic WBC 4 Ur Squamous Epith Cells 1 Urine Bacteria Many H Influenza Typ A,B (EIA) Fingerstick Blood Sugar Results: 158 Review of Systems - Review of Systems Systems not reviewed;Unavailable: Intubated Critical Care Progress Note - Ventilator Checklist Head of Bed 30 Degrees: Yes Daily Sedation Vacation: No Daily Assessment of Readiness to Wean: No Daily Spontaneous Breathing Trial: No PUD Prophalyxis: Yes DVT Prophylaxis: Yes Oral Care with Chlorhexidine Gluconate {CHG}: Yes - Vent Settings MODE:: ASSIST CONTROL TIDAL VOLUME:: 450 RESP RATE:: 12 FIO2:: 60 PEEP:: 5 - Extremities/Vascular Does the Patient have a Central Venous Catheter?: No Does the Patient need a Central Venous Catheter?: No Does the Patient have a Cano Catheter?: Yes Does the Patient need a Cano Catheter?: Yes Catheter Insertion Criteria: Need for accurate measurement of output in critically ill patient - Prophylaxis GI Prophylaxis GI: PPI - Prophylaxis DVT Prophylaxis DVT: SCDs
--- NOTE | 2017-10-26 17:39 | RAD ---
HISTORY: Status post intubation. COMPARISON: 10/26/2009 at 14:10 FINDINGS: LUNGS: No active pulmonary disease. PLEURA: No significant pleural effusion identified, no pneumothorax apparent. CARDIOVASCULAR: Normal. OSSEOUS STRUCTURES: No significant abnormalities. VISUALIZED UPPER ABDOMEN: Normal. OTHER FINDINGS: Low lying endotracheal tube, the tip is in the right mainstem bronchus. IMPRESSION: No active disease. Low lying endotracheal tube. For optimal placement above the eloy the should be retracted approximately 5 cm. Communication of results: I discussed findings directly with the attending physician in the emergency department Dr. Lawton.
[2017-10-26] MEDS ORDERED: Mannitol 12.5 gm/50 ml Inj IV SCH (17:45)
[2017-10-26] MEDS ORDERED: Labetalol 5 mg/ml Inj 20ML IVP PRN (17:53)
[2017-10-26] MEDS ORDERED: Dexamethasone 4 mg/1 ml IV SCH (19:00)
[2017-10-26] MEDS ORDERED: Chlorhexidine Gluconate 1 APPL/PKT TP ONE (19:48)
[2017-10-26] MEDS ORDERED: Dexamethasone 6 MG in Sodium Chloride 0.9% 50 ML IVPB SCH (22:00)
[2017-10-26] MEDS: levETIRAcetam 500 MG in Sodium Chloride 0.9% 100 ML IVPB SCH (22:53)
[2017-10-26] MEDS: Insulin Regular 100 units/ml SC SCH (23:05)
[2017-10-27] MEDS: Dexamethasone 4 mg/1 ml IV SCH ×2 (02:15→09:19)
[2017-10-27 05:40] LABS: BASO % 0.3 % (0.0-2.0); HEMOGLOBIN 9.4 g/dL (12.0-16.0); LYMPH # 0.3 K/uL (1.0-4.3); MEAN CELL VOLUME 93.5 fl (81.0-99.0); MEAN CORPUSCULAR HEMOGLOBIN 32.1 pg (27.0-31.0); MEAN CORPUSCULAR HGB CONC 34.3 g/dL (33.0-37.0); MEAN PLATELET VOLUME 9.1 fl (7.2-11.7); MONO # 0.5 K/uL (0.0-0.8); MONO % 4.9 % (0.0-10.0); NEUT # 9.2 K/uL (1.8-7.0); NEUT % 91.8 % (50.0-75.0); PLATELET COUNT 122 K/uL (130-400); RBC 2.94 Mil/uL (3.80-5.20); RED CELL DISTRIBUTION WIDTH 12.8 % (11.5-14.5); WHITE BLOOD COUNT 10.1 K/uL (4.8-10.8)
[2017-10-27 05:55] LABS: ABG ALLEN TEST YES; ARTERIAL BLOOD GAS HCO3 27.7 mmol/L (21-28); ARTERIAL BLOOD GAS O2 SAT 99.7 % (95-98); ARTERIAL BLOOD GAS PCO2 40 mm/Hg (35-45); ARTERIAL BLOOD GAS PH 7.45 (7.35-7.45); ARTERIAL BLOOD GAS PO2 117 mm/Hg (80-100)
[2017-10-27 05:58] LABS: ALB/GLOB RATIO 1.3 (1.0-2.1); ALBUMIN 4.1 g/dL (3.5-5.0); ALT/SGPT 27 U/L (9-52); AST/SGOT 36 U/L (14-36); BLOOD UREA NITROGEN 12 mg/dl (7-17); CALCIUM 9.5 mg/dL (8.4-10.2); GFR AFRICAN-AMERICAN > 60; GFR NON-AFRICAN AMERICAN > 60
[2017-10-27] MEDS: Mannitol 12.5 gm/50 ml Inj IV SCH ×3 (06:06→23:01)
[2017-10-27 06:15] LABS: PROTHROMBIN TIME 11.3 Seconds (9.8-13.1)
[2017-10-27 06:16] LABS: PARTIAL THROMBOPLASTIN TIME 27.2 Seconds (25.6-37.1)
[2017-10-27] MEDS: Insulin Regular 100 units/ml SC SCH ×3 (06:59→23:46)
--- NOTE | 2017-10-27 07:44 | CON ---
DATE: 10/26/2017 HISTORY OF PRESENT ILLNESS: This is an 83-year-old lady that actually presented to the ER with symptoms of flu. Apparently, just upon arriving here in the ER, she deteriorated neurologically, CT scan was done which showed a massive intracranial hemorrhage. The patient rapidly deteriorated, requiring intubation and continues to deteriorate. Her past medical history, social history, medications all reviewed in the EMR. PHYSICAL EXAMINATION GENERAL: The patient is now basically a [place] Coma Score of 40. She is actively decerebrating. Her pupils are pinpoint. There are weak corneal bilaterally. No Doll's eyes. She decerebrates to gag and decerebrates in all 4 extremities to noxious. LABORATORY DATA: CT brain shows a massive right central intraparenchymal hemorrhage which also was involved rupture through the cortical surface into the subdural space producing a moderate sized acute subdural hematoma. There was also subarachnoid blood and there was intraventricular blood. The patient is basically radiographically and clinically herniated. IMPRESSION AND PLAN: Unfortunately, this patient is beyond salvaging. I had a long discussion with the family about the circumstance who certainly seems to understand that. I discussed this case as well with the financial planning assistant. RECOMMENDATION: My recommendation is certainly not to initiate any aggressive treatment. I educated to the family. It is up to them whether they want to withdraw life support. Again, situation is essentially hopeless. Jose Burroughs MD
--- NOTE | 2017-10-27 08:56 | CP.PCM.HP ---
<Karl Sutton - Last Filed: 10/27/17 16:28> History of Present Illness - History of Present Illness History of Present Illness: History obtained from chart due to patients condition 82 YO F w/ w/ PMH of HTN had came to the ER for cough, body aches, vomiting and lethargy. In the ER on CT she was noted to have moderate size Sub dural hematoma and a Right parietal occipital intracranial bleed. Patient was intubated in the ER. Family member deny patient having any head trauma recently. Nurosurgery was called: however after assessing patient they do not believe surgical intervention is appropriate at this time. PMD: Dr. Sargent Poor prognosis Present on Admission - Present on Admission Any Indicators Present on Admission: No Past Patient History - Infectious Disease Hx of Infectious Diseases: None - Past Social History Smoking Status: Never Smoked - CARDIAC Hx Hypercholesterolemia: Yes Hx Hypertension: Yes - PULMONARY Hx Respiratory Disorders: No - NEUROLOGICAL Hx Neurological Disorder: No - HEENT Hx HEENT Problems: No - RENAL Hx Chronic Kidney Disease: No - ENDOCRINE/METABOLIC Hx Endocrine Disorders: No - HEMATOLOGICAL/ONCOLOGICAL Hx AIDS: No Hx Human Immunodeficiency Virus (HIV): No - INTEGUMENTARY Hx Dermatological Problems: No - MUSCULOSKELETAL/RHEUMATOLOGICAL Hx Falls: No - GENITOURINARY/GYNECOLOGICAL Hx Genitourinary Disorders: No - PSYCHIATRIC Hx Substance Use: No - SURGICAL HISTORY Hx Surgeries: Yes Other/Comment: vaginal sling. - ANESTHESIA Hx Anesthesia: Yes Hx Anesthesia Reactions: No Meds Allergies/Adverse Reactions: Allergies Allergy/AdvReac Type Severity Reaction Status Date / Time Penicillins Allergy RASH Verified 10/26/17 13:48 Physical Exam - Head Exam Head Exam: ATRAUMATIC, NORMOCEPHALIC - ENT Exam ENT Exam: Mucous Membranes Moist - Respiratory Exam Respiratory Exam: Clear to Auscultation Bilateral, NORMAL BREATHING PATTERN. absent: Rhonchi, Wheezes - Cardiovascular Exam Cardiovascular Exam: REGULAR RHYTHM, +S1, +S2 - GI/Abdominal Exam GI & Abdominal Exam: Distended, Soft - Neurological Exam Additional comments: Pin point pupils, not reactive to light No corneal reflex - Not responding to painful stimuli Results - Vital Signs Recent Vital Signs: Last Vital Signs Temp 98.3 F 10/27/17 04:00 Pulse 62 10/27/17 06:00 Resp 22 10/27/17 06:00 BP 166/71 H 10/27/17 06:00 Pulse Ox 100 10/27/17 06:00 - Labs Result Diagrams: 10/27/17 05:15 10/27/17 05:15 Labs: Laboratory Results - last 24 hr 10/26/17 10/26/17 10/26/17 13:58 14:09 14:16 WBC RBC Hgb Hct MCV MCH MCHC RDW Plt Count MPV Neut % (Auto) Lymph % (Auto) [place] % (Auto) Eos % (Auto) Baso % (Auto) Neut # (Auto) Lymph # (Auto) [place] # (Auto) Eos # (Auto) Baso # (Auto) Neutrophils % (Manual) Band Neutrophils % Lymphocytes % (Manual) Monocytes % (Manual) Platelet Estimate Hypochromasia (manual) PT INR APTT pCO2 37 pO2 70 L HCO3 23.7 ABG pH 7.40 ABG Total CO2 24.0 ABG O2 Saturation 99.5 H ABG O2 Content 12.9 L ABG Base Excess -1.6 ABG Hemoglobin 9.6 L ABG Carboxyhemoglobin 2.7 H POC ABG HHb (Measured) 0.5 ABG Methemoglobin 1.9 ABG O2 Capacity 13.0 L Jed Test Yes ABG Potassium A-a O2 Difference 119.0 Hgb O2 Saturation 94.8 L Glucose Lactate Vent Mode Mechanical Rate FiO2 33.0 Tidal Volume PEEP Blood Gas Comments 3l/m nc,rr Sodium Potassium Chloride Carbon Dioxide Anion Gap BUN Creatinine Est GFR ( Amer) Est GFR (Non-Af Amer) POC Glucose (mg/dL) 128 H Random Glucose Serum Osmolality Calcium Phosphorus Magnesium Total Bilirubin AST ALT Alkaline Phosphatase Total Protein Albumin Globulin Albumin/Globulin Ratio Lipase Vitamin B12 TSH 3rd Generation Arterial Blood Potassium Urine Color Urine Clarity Urine pH Ur Specific [place] Urine Protein Urine Glucose (UA) Urine Ketones Urine Blood Urine Nitrate Urine Bilirubin Urine Urobilinogen Ur Leukocyte Esterase Urine RBC (Auto) Urine Microscopic WBC Ur Squamous Epith Cells Urine Bacteria Influenza Typ A,B (EIA) Pos for influenza a H Blood Type Blood Type Confirm Antibody Screen BBK History Checked 10/26/17 10/26/17 10/26/17 14:20 14:20 14:20 WBC 7.3 D RBC 3.58 L Hgb 11.5 L Hct 33.0 L MCV 92.2 MCH 32.2 H MCHC 34.9 RDW 13.1 Plt Count 194 MPV 9.9 Neut % (Auto) 78.7 H Lymph % (Auto) 8.9 L [place] % (Auto) 10.9 H Eos % (Auto) 0.9 Baso % (Auto) 0.6 Neut # (Auto) 5.7 Lymph # (Auto) 0.6 L [place] # (Auto) 0.8 Eos # (Auto) 0.1 Baso # (Auto) 0.0 Neutrophils % (Manual) 73 Band Neutrophils % 3 H Lymphocytes % (Manual) 10 L Monocytes % (Manual) 14 H Platelet Estimate Normal Hypochromasia (manual) Slight PT 11.7 INR 1.1 APTT 25.2 L pCO2 pO2 HCO3 ABG pH ABG Total CO2 ABG O2 Saturation ABG O2 Content ABG Base Excess ABG Hemoglobin ABG Carboxyhemoglobin POC ABG HHb (Measured) ABG Methemoglobin ABG O2 Capacity Jed Test ABG Potassium A-a O2 Difference Hgb O2 Saturation Glucose Lactate Vent Mode Mechanical Rate FiO2 Tidal Volume PEEP Blood Gas Comments Sodium 132 Potassium 3.7 Chloride 96 L Carbon Dioxide 25 Anion Gap 15 BUN 11 Creatinine 0.6 L Est GFR ( Amer) > 60 Est GFR (Non-Af Amer) > 60 POC Glucose (mg/dL) Random Glucose 132 H Serum Osmolality Calcium 9.6 Phosphorus 3.5 Magnesium 1.9 Total Bilirubin 0.6 AST 32 ALT 29 Alkaline Phosphatase 74 Total Protein 7.3 Albumin 4.3 Globulin 3.0 Albumin/Globulin Ratio 1.4 Lipase 40 Vitamin B12 TSH 3rd Generation Arterial Blood Potassium Urine Color Urine Clarity Urine pH Ur Specific [place] Urine Protein Urine Glucose (UA) Urine Ketones Urine Blood Urine Nitrate Urine Bilirubin Urine Urobilinogen Ur Leukocyte Esterase Urine RBC (Auto) Urine Microscopic WBC Ur Squamous Epith Cells Urine Bacteria Influenza Typ A,B (EIA) Blood Type Blood Type Confirm Antibody Screen BBK History Checked 10/26/17 10/26/17 10/26/17 16:57 17:00 20:15 WBC RBC Hgb Hct MCV MCH MCHC RDW Plt Count MPV Neut % (Auto) Lymph % (Auto) [place] % (Auto) Eos % (Auto) Baso % (Auto) Neut # (Auto) Lymph # (Auto) [place] # (Auto) Eos # (Auto) Baso # (Auto) Neutrophils % (Manual) Band Neutrophils % Lymphocytes % (Manual) Monocytes % (Manual) Platelet Estimate Hypochromasia (manual) PT INR APTT pCO2 pO2 HCO3 ABG pH ABG Total CO2 ABG O2 Saturation ABG O2 Content ABG Base Excess ABG Hemoglobin ABG Carboxyhemoglobin POC ABG HHb (Measured) ABG Methemoglobin ABG O2 Capacity Jed Test ABG Potassium A-a O2 Difference Hgb O2 Saturation Glucose Lactate Vent Mode Mechanical Rate FiO2 Tidal Volume PEEP Blood Gas Comments Sodium Potassium Chloride Carbon Dioxide Anion Gap BUN Creatinine Est GFR ( Amer) Est GFR (Non-Af Amer) POC Glucose (mg/dL) 158 H Random Glucose Serum Osmolality Calcium Phosphorus Magnesium Total Bilirubin AST ALT Alkaline Phosphatase Total Protein Albumin Globulin Albumin/Globulin Ratio Lipase Vitamin B12 TSH 3rd Generation Arterial Blood Potassium Urine Color Yellow Urine Clarity Slighty-cloudy Urine pH 6.0 Ur Specific [place] 1.014 Urine Protein Negative Urine Glucose (UA) Neg Urine Ketones 20 Urine Blood Negative Urine Nitrate Positive H Urine Bilirubin Negative Urine Urobilinogen 0.2-1.0 Ur Leukocyte Esterase Trace Urine RBC (Auto) 3 Urine Microscopic WBC 4 Ur Squamous Epith Cells 1 Urine Bacteria Many H Influenza Typ A,B (EIA) Blood Type O POSITIVE Blood Type Confirm Antibody Screen Negative BBK History Checked No verified bt 10/26/17 10/26/17 10/27/17 20:55 21:12 05:00 WBC RBC Hgb Hct MCV MCH MCHC RDW Plt Count MPV Neut % (Auto) Lymph % (Auto) [place] % (Auto) Eos % (Auto) Baso % (Auto) Neut # (Auto) Lymph # (Auto) [place] # (Auto) Eos # (Auto) Baso # (Auto) Neutrophils % (Manual) Band Neutrophils % Lymphocytes % (Manual) Monocytes % (Manual) Platelet Estimate Hypochromasia (manual) PT INR APTT pCO2 pO2 HCO3 ABG pH ABG Total CO2 ABG O2 Saturation ABG O2 Content ABG Base Excess ABG Hemoglobin ABG Carboxyhemoglobin POC ABG HHb (Measured) ABG Methemoglobin ABG O2 Capacity Jed Test ABG Potassium A-a O2 Difference Hgb O2 Saturation Glucose Lactate Vent Mode Mechanical Rate FiO2 Tidal Volume PEEP Blood Gas Comments Sodium Potassium Chloride Carbon Dioxide Anion Gap BUN Creatinine Est GFR ( Amer) Est GFR (Non-Af Amer) POC Glucose (mg/dL) 137 H Random Glucose Serum Osmolality Calcium Phosphorus Magnesium Total Bilirubin AST ALT Alkaline Phosphatase Total Protein Albumin Globulin Albumin/Globulin Ratio Lipase Vitamin B12 437 TSH 3rd Generation 0.75 Arterial Blood Potassium Urine Color Urine Clarity Urine pH Ur Specific [place] Urine Protein Urine Glucose (UA) Urine Ketones Urine Blood Urine Nitrate Urine Bilirubin Urine Urobilinogen Ur Leukocyte Esterase Urine RBC (Auto) Urine Microscopic WBC Ur Squamous Epith Cells Urine Bacteria Influenza Typ A,B (EIA) Blood Type Blood Type Confirm O POSITIVE Antibody Screen BBK History Checked 10/27/17 10/27/17 10/27/17 05:15 05:15 05:15 WBC 10.1 RBC 2.94 L Hgb 9.4 L D Hct 27.5 L MCV 93.5 MCH 32.1 H MCHC 34.3 RDW 12.8 Plt Count 122 L D MPV 9.1 Neut % (Auto) 91.8 H Lymph % (Auto) 3.0 L [place] % (Auto) 4.9 Eos % (Auto) 0.0 Baso % (Auto) 0.3 Neut # (Auto) 9.2 H Lymph # (Auto) 0.3 L [place] # (Auto) 0.5 Eos # (Auto) 0.0 Baso # (Auto) 0.0 Neutrophils % (Manual) Band Neutrophils % Lymphocytes % (Manual) Monocytes % (Manual) Platelet Estimate Hypochromasia (manual) PT INR APTT pCO2 pO2 HCO3 ABG pH ABG Total CO2 ABG O2 Saturation ABG O2 Content ABG Base Excess ABG Hemoglobin ABG Carboxyhemoglobin POC ABG HHb (Measured) ABG Methemoglobin ABG O2 Capacity Jed Test ABG Potassium A-a O2 Difference Hgb O2 Saturation Glucose Lactate Vent Mode Mechanical Rate FiO2 Tidal Volume PEEP Blood Gas Comments Sodium 135 Potassium 3.4 L Chloride 97 L Carbon Dioxide 27 Anion Gap 14 BUN 12 Creatinine 0.7 Est GFR ( Amer) > 60 Est GFR (Non-Af Amer) > 60 POC Glucose (mg/dL) Random Glucose 166 H Serum Osmolality 296 Calcium 9.5 Phosphorus Magnesium Total Bilirubin 0.4 AST 36 ALT 27 Alkaline Phosphatase 62 Total Protein 7.2 Albumin 4.1 Globulin 3.2 Albumin/Globulin Ratio 1.3 Lipase Vitamin B12 TSH 3rd Generation Arterial Blood Potassium Urine Color Urine Clarity Urine pH Ur Specific [place] Urine Protein Urine Glucose (UA) Urine Ketones Urine Blood Urine Nitrate Urine Bilirubin Urine Urobilinogen Ur Leukocyte Esterase Urine RBC (Auto) Urine Microscopic WBC Ur Squamous Epith Cells Urine Bacteria Influenza Typ A,B (EIA) Blood Type Blood Type Confirm Antibody Screen BBK History Checked 10/27/17 10/27/17 10/27/17 05:15 05:22 06:04 WBC RBC Hgb Hct MCV MCH MCHC RDW Plt Count MPV Neut % (Auto) Lymph % (Auto) [place] % (Auto) Eos % (Auto) Baso % (Auto) Neut # (Auto) Lymph # (Auto) [place] # (Auto) Eos # (Auto) Baso # (Auto) Neutrophils % (Manual) Band Neutrophils % Lymphocytes % (Manual) Monocytes % (Manual) Platelet Estimate Hypochromasia (manual) PT 11.3 INR 1.0 APTT 27.2 pCO2 40 pO2 117 H HCO3 27.7 ABG pH 7.45 ABG Total CO2 29.0 H ABG O2 Saturation 99.7 H ABG O2 Content ABG Base Excess 3.5 H ABG Hemoglobin ABG Carboxyhemoglobin POC ABG HHb (Measured) ABG Methemoglobin ABG O2 Capacity Jed Test Yes ABG Potassium 3.3 L A-a O2 Difference 261.0 Hgb O2 Saturation Glucose 168 H Lactate 1.0 Vent Mode A/c Mechanical Rate 12 FiO2 60.0 Tidal Volume 450 PEEP 5 Blood Gas Comments Sodium 134.0 Potassium Chloride 100.0 Carbon Dioxide Anion Gap BUN Creatinine Est GFR ( Amer) Est GFR (Non-Af Amer) POC Glucose (mg/dL) 157 H Random Glucose Serum Osmolality Calcium Phosphorus Magnesium Total Bilirubin AST ALT Alkaline Phosphatase Total Protein Albumin Globulin Albumin/Globulin Ratio Lipase Vitamin B12 TSH 3rd Generation Arterial Blood Potassium 3.3 L Urine Color Urine Clarity Urine pH Ur Specific [place] Urine Protein Urine Glucose (UA) Urine Ketones Urine Blood Urine Nitrate Urine Bilirubin Urine Urobilinogen Ur Leukocyte Esterase Urine RBC (Auto) Urine Microscopic WBC Ur Squamous Epith Cells Urine Bacteria Influenza Typ A,B (EIA) Blood Type Blood Type Confirm Antibody Screen BBK History Checked Assessment & Plan - Assessment and Plan (Free Text) Assessment: 82 YO F w/ large parietal intracerebral bleed and subdural hematoma intubated w/ o brainstem reflexes - C/W with ICU recommendations - Nerology consult appreciated - Poor prognosis <Aftab Sargent - Last Filed: 11/03/17 16:21> Results - Vital Signs Recent Vital Signs: Last Vital Signs Temp 98.1 F 11/02/17 04:00 Pulse 112 H 11/02/17 04:00 Resp 20 11/02/17 04:00 BP 50/36 L 11/02/17 04:00 Pulse Ox 100 11/02/17 04:00 - Labs Result Diagrams: 11/01/17 04:55 11/01/17 04:55 Assessment & Plan - Assessment and Plan (Free Text) Assessment: Patient was personally seen and examined by me in rounds with residents. Available labs and diagnostic data reviewed. Case, Patient's condition and management plan discussed with residents in rounds. Agree with resident's documentation. Plan: As ordered. Aftab Sargent MD
[2017-10-27] MEDS: levETIRAcetam 500 MG in Sodium Chloride 0.9% 100 ML IVPB SCH ×2 (09:18→21:46)
[2017-10-27 10:56] LABS: ANISOCYTOSIS SLIGHT; HYPOCHROMIC SLIGHT; LYMPHOCYTE 2 % (20-50); MONOCYTE 2 % (0-10); NEUTROPHIL 81 % (42-75); OVALOCYTES MODERATE; PLATELET ESTIMATE SLIGHTLY DECREASED (NORMAL); TOTAL CELLS COUNTED 100
[2017-10-27 10:57] LABS: LARGE PLATELETS PRESENT
[2017-10-27 10:59] LABS: BANDS 15 % (0-2)
--- NOTE | 2017-10-27 10:59 | RAD ---
HISTORY: intubated COMPARISON: Chest radiograph dated 10/26/2017 FINDINGS: LUNGS: No active pulmonary disease. PLEURA: No significant pleural effusion identified, no pneumothorax apparent. CARDIOVASCULAR: Atherosclerotic aortic calcifications. Cardiomediastinal silhouette within normal limits. OSSEOUS STRUCTURES: Unchanged. VISUALIZED UPPER ABDOMEN: Normal. OTHER FINDINGS: Endotracheal tube tip at the level of the eloy. Enteric tube, unchanged. IMPRESSION: No endotracheal tube at the level of the eloy. Slight retraction is recommended. No other significant interval changes.
--- NOTE | 2017-10-27 11:26 | CARD ---
APPROVED REPORT EKG Measurement Heart [id number] <Conclusion> Sinus rhythm with fusion complexes Low voltage QRS Borderline ECG
--- NOTE | 2017-10-27 14:09 | CP.PCM.CON ---
History of Present Illness - History of Present Illness History of Present Illness: 82 yr old woman with a large right sided intraparenchymal hemorrhage , and right subdural hemorrhage, who now has pinpoint pupils with decorticate posturing, and no brainstem reflexes. Patient has no seizures, and is not on sedation. About one week ago, patient was complaining of feeling ill, and had a headache, with stomach upset. She went to see her pmd, who confirmed she had flu, but by then, her headache had resolved. Yesterday night, she was brought to the hospital, and found to have large subdural with midline shift and mass effect and a subarachnoid hemorrhage in the right fronto-parietal region as well. Neurosurgery was called and felt that surgical intervention was not appropriate at this time. She has been given 2 units of FFP so far, and 2 more units are to be administered soon. On exam: intubated, not sedated, pupils pinpoint, not reactive. no corneals, no gag, no pupillary reflex. no spontaneous movement noted. Decorticate posturing on sternal rub. +1 dtr ul and ll bl. Toes silent. Past Patient History - Infectious Disease Hx of Infectious Diseases: None - Past Social History Smoking Status: Never Smoked - CARDIAC Hx Hypercholesterolemia: Yes Hx Hypertension: Yes - PULMONARY Hx Respiratory Disorders: No - NEUROLOGICAL Hx Neurological Disorder: No - HEENT Hx HEENT Problems: No - RENAL Hx Chronic Kidney Disease: No - ENDOCRINE/METABOLIC Hx Endocrine Disorders: No - HEMATOLOGICAL/ONCOLOGICAL Hx AIDS: No Hx Human Immunodeficiency Virus (HIV): No - INTEGUMENTARY Hx Dermatological Problems: No - MUSCULOSKELETAL/RHEUMATOLOGICAL Hx Falls: No - GENITOURINARY/GYNECOLOGICAL Hx Genitourinary Disorders: No - PSYCHIATRIC Hx Substance Use: No - SURGICAL HISTORY Hx Surgeries: Yes Other/Comment: vaginal sling. - ANESTHESIA Hx Anesthesia: Yes Hx Anesthesia Reactions: No Meds Allergies/Adverse Reactions: Allergies Allergy/AdvReac Type Severity Reaction Status Date / Time Penicillins Allergy RASH Verified 10/26/17 13:48 - Medications Medications: Current Medications Dexamethasone (Decadron Inj) 6 mg IV 0300,0900,1500,2100 DENIZ Levetiracetam 500 mg/ Sodium (Chloride) 105 mls @ 210 mls/hr IVPB Q12 DENIZ Last Admin: 10/27/17 09:18 Dose: 210 mls/hr Insulin Human Regular (Humulin R) 0 units SC ACCU-CHECK [facility] PRN Reason: Protocol Last Admin: 10/27/17 06:59 Dose: 1 u Labetalol HCl (Trandate) 20 mg IVP Q6H PRN PRN Reason: Systolic Blood Pressure Mannitol (Mannitol) 25 gm IV Q8@0500,1300,2300 [facility] Last Admin: 10/27/17 06:06 Dose: 25 gm Oseltamivir Phosphate (Tamiflu Cap) 75 mg NG BID [facility] PRN Reason: Protocol Last Admin: 10/27/17 09:18 Dose: 75 mg Pantoprazole Sodium (Protonix Inj) 40 mg IVP DAILY [facility] Last Admin: 10/27/17 09:18 Dose: 40 mg Results - Vital Signs Recent Vital Signs: Last Vital Signs Temp 98.4 F 10/27/17 08:00 Pulse 69 10/27/17 08:00 Resp 20 10/27/17 08:00 BP 167/69 H 10/27/17 08:00 Pulse Ox 100 10/27/17 08:00 - Labs Result Diagrams: 10/27/17 05:15 10/27/17 05:15 Labs: Laboratory Results - last 24 hr 10/26/17 10/26/17 10/26/17 13:58 14:09 14:16 WBC RBC Hgb Hct MCV MCH MCHC RDW Plt Count MPV Neut % (Auto) Lymph % (Auto) [place] % (Auto) Eos % (Auto) Baso % (Auto) Neut # (Auto) Lymph # (Auto) [place] # (Auto) Eos # (Auto) Baso # (Auto) Neutrophils % (Manual) Band Neutrophils % Lymphocytes % (Manual) Monocytes % (Manual) Platelet Estimate Large Platelets Hypochromasia (manual) Anisocytosis (manual) Macrocytosis (manual) Ovalocytes PT INR APTT pCO2 37 pO2 70 L HCO3 23.7 ABG pH 7.40 ABG Total CO2 24.0 ABG O2 Saturation 99.5 H ABG O2 Content 12.9 L ABG Base Excess -1.6 ABG Hemoglobin 9.6 L ABG Carboxyhemoglobin 2.7 H POC ABG HHb (Measured) 0.5 ABG Methemoglobin 1.9 ABG O2 Capacity 13.0 L Jed Test Yes ABG Potassium A-a O2 Difference 119.0 Hgb O2 Saturation 94.8 L Glucose Lactate Vent Mode Mechanical Rate FiO2 33.0 Tidal Volume PEEP Blood Gas Comments 3l/m nc,rr Sodium Potassium Chloride Carbon Dioxide Anion Gap BUN Creatinine Est GFR ( Amer) Est GFR (Non-Af Amer) POC Glucose (mg/dL) 128 H Random Glucose Serum Osmolality Calcium Phosphorus Magnesium Total Bilirubin AST ALT Alkaline Phosphatase Total Protein Albumin Globulin Albumin/Globulin Ratio Lipase Vitamin B12 TSH 3rd Generation Arterial Blood Potassium Urine Color Urine Clarity Urine pH Ur Specific [place] Urine Protein Urine Glucose (UA) Urine Ketones Urine Blood Urine Nitrate Urine Bilirubin Urine Urobilinogen Ur Leukocyte Esterase Urine RBC (Auto) Urine Microscopic WBC Ur Squamous Epith Cells Urine Bacteria Influenza Typ A,B (EIA) Pos for influenza a H Blood Type Blood Type Confirm Antibody Screen BBK History Checked 10/26/17 10/26/17 10/26/17 14:20 14:20 14:20 WBC 7.3 D RBC 3.58 L Hgb 11.5 L Hct 33.0 L MCV 92.2 MCH 32.2 H MCHC 34.9 RDW 13.1 Plt Count 194 MPV 9.9 Neut % (Auto) 78.7 H Lymph % (Auto) 8.9 L [place] % (Auto) 10.9 H Eos % (Auto) 0.9 Baso % (Auto) 0.6 Neut # (Auto) 5.7 Lymph # (Auto) 0.6 L [place] # (Auto) 0.8 Eos # (Auto) 0.1 Baso # (Auto) 0.0 Neutrophils % (Manual) 73 Band Neutrophils % 3 H Lymphocytes % (Manual) 10 L Monocytes % (Manual) 14 H Platelet Estimate Normal Large Platelets Hypochromasia (manual) Slight Anisocytosis (manual) Macrocytosis (manual) Ovalocytes PT 11.7 INR 1.1 APTT 25.2 L pCO2 pO2 HCO3 ABG pH ABG Total CO2 ABG O2 Saturation ABG O2 Content ABG Base Excess ABG Hemoglobin ABG Carboxyhemoglobin POC ABG HHb (Measured) ABG Methemoglobin ABG O2 Capacity Jed Test ABG Potassium A-a O2 Difference Hgb O2 Saturation Glucose Lactate Vent Mode Mechanical Rate FiO2 Tidal Volume PEEP Blood Gas Comments Sodium 132 Potassium 3.7 Chloride 96 L Carbon Dioxide 25 Anion Gap 15 BUN 11 Creatinine 0.6 L Est GFR ( Amer) > 60 Est GFR (Non-Af Amer) > 60 POC Glucose (mg/dL) Random Glucose 132 H Serum Osmolality Calcium 9.6 Phosphorus 3.5 Magnesium 1.9 Total Bilirubin 0.6 AST 32 ALT 29 Alkaline Phosphatase 74 Total Protein 7.3 Albumin 4.3 Globulin 3.0 Albumin/Globulin Ratio 1.4 Lipase 40 Vitamin B12 TSH 3rd Generation Arterial Blood Potassium Urine Color Urine Clarity Urine pH Ur Specific [place] Urine Protein Urine Glucose (UA) Urine Ketones Urine Blood Urine Nitrate Urine Bilirubin Urine Urobilinogen Ur Leukocyte Esterase Urine RBC (Auto) Urine Microscopic WBC Ur Squamous Epith Cells Urine Bacteria Influenza Typ A,B (EIA) Blood Type Blood Type Confirm Antibody Screen BBK History Checked 10/26/17 10/26/17 10/26/17 16:57 17:00 20:15 WBC RBC Hgb Hct MCV MCH MCHC RDW Plt Count MPV Neut % (Auto) Lymph % (Auto) [place] % (Auto) Eos % (Auto) Baso % (Auto) Neut # (Auto) Lymph # (Auto) [place] # (Auto) Eos # (Auto) Baso # (Auto) Neutrophils % (Manual) Band Neutrophils % Lymphocytes % (Manual) Monocytes % (Manual) Platelet Estimate Large Platelets Hypochromasia (manual) Anisocytosis (manual) Macrocytosis (manual) Ovalocytes PT INR APTT pCO2 pO2 HCO3 ABG pH ABG Total CO2 ABG O2 Saturation ABG O2 Content ABG Base Excess ABG Hemoglobin ABG Carboxyhemoglobin POC ABG HHb (Measured) ABG Methemoglobin ABG O2 Capacity Jed Test ABG Potassium A-a O2 Difference Hgb O2 Saturation Glucose Lactate Vent Mode Mechanical Rate FiO2 Tidal Volume PEEP Blood Gas Comments Sodium Potassium Chloride Carbon Dioxide Anion Gap BUN Creatinine Est GFR ( Amer) Est GFR (Non-Af Amer) POC Glucose (mg/dL) 158 H Random Glucose Serum Osmolality Calcium Phosphorus Magnesium Total Bilirubin AST ALT Alkaline Phosphatase Total Protein Albumin Globulin Albumin/Globulin Ratio Lipase Vitamin B12 TSH 3rd Generation Arterial Blood Potassium Urine Color Yellow Urine Clarity Slighty-cloudy Urine pH 6.0 Ur Specific [place] 1.014 Urine Protein Negative Urine Glucose (UA) Neg Urine Ketones 20 Urine Blood Negative Urine Nitrate Positive H Urine Bilirubin Negative Urine Urobilinogen 0.2-1.0 Ur Leukocyte Esterase Trace Urine RBC (Auto) 3 Urine Microscopic WBC 4 Ur Squamous Epith Cells 1 Urine Bacteria Many H Influenza Typ A,B (EIA) Blood Type O POSITIVE Blood Type Confirm Antibody Screen Negative BBK History Checked No verified bt 10/26/17 10/26/17 10/27/17 20:55 21:12 05:00 WBC RBC Hgb Hct MCV MCH MCHC RDW Plt Count MPV Neut % (Auto) Lymph % (Auto) [place] % (Auto) Eos % (Auto) Baso % (Auto) Neut # (Auto) Lymph # (Auto) [place] # (Auto) Eos # (Auto) Baso # (Auto) Neutrophils % (Manual) Band Neutrophils % Lymphocytes % (Manual) Monocytes % (Manual) Platelet Estimate Large Platelets Hypochromasia (manual) Anisocytosis (manual) Macrocytosis (manual) Ovalocytes PT INR APTT pCO2 pO2 HCO3 ABG pH ABG Total CO2 ABG O2 Saturation ABG O2 Content ABG Base Excess ABG Hemoglobin ABG Carboxyhemoglobin POC ABG HHb (Measured) ABG Methemoglobin ABG O2 Capacity Jed Test ABG Potassium A-a O2 Difference Hgb O2 Saturation Glucose Lactate Vent Mode Mechanical Rate FiO2 Tidal Volume PEEP Blood Gas Comments Sodium Potassium Chloride Carbon Dioxide Anion Gap BUN Creatinine Est GFR ( Amer) Est GFR (Non-Af Amer) POC Glucose (mg/dL) 137 H Random Glucose Serum Osmolality Calcium Phosphorus Magnesium Total Bilirubin AST ALT Alkaline Phosphatase Total Protein Albumin Globulin Albumin/Globulin Ratio Lipase Vitamin B12 437 TSH 3rd Generation 0.75 Arterial Blood Potassium Urine Color Urine Clarity Urine pH Ur Specific [place] Urine Protein Urine Glucose (UA) Urine Ketones Urine Blood Urine Nitrate Urine Bilirubin Urine Urobilinogen Ur Leukocyte Esterase Urine RBC (Auto) Urine Microscopic WBC Ur Squamous Epith Cells Urine Bacteria Influenza Typ A,B (EIA) Blood Type Blood Type Confirm O POSITIVE Antibody Screen BBK History Checked 10/27/17 10/27/17 10/27/17 05:15 05:15 05:15 WBC 10.1 RBC 2.94 L Hgb 9.4 L D Hct 27.5 L MCV 93.5 MCH 32.1 H MCHC 34.3 RDW 12.8 Plt Count 122 L D MPV 9.1 Neut % (Auto) 91.8 H Lymph % (Auto) 3.0 L [place] % (Auto) 4.9 Eos % (Auto) 0.0 Baso % (Auto) 0.3 Neut # (Auto) 9.2 H Lymph # (Auto) 0.3 L [place] # (Auto) 0.5 Eos # (Auto) 0.0 Baso # (Auto) 0.0 Neutrophils % (Manual) 81 H Band Neutrophils % 15 H* Lymphocytes % (Manual) 2 L Monocytes % (Manual) 2 Platelet Estimate Slightly decreased L Large Platelets Present Hypochromasia (manual) Slight Anisocytosis (manual) Slight Macrocytosis (manual) Slight Ovalocytes Moderate PT INR APTT pCO2 pO2 HCO3 ABG pH ABG Total CO2 ABG O2 Saturation ABG O2 Content ABG Base Excess ABG Hemoglobin ABG Carboxyhemoglobin POC ABG HHb (Measured) ABG Methemoglobin ABG O2 Capacity Jed Test ABG Potassium A-a O2 Difference Hgb O2 Saturation Glucose Lactate Vent Mode Mechanical Rate FiO2 Tidal Volume PEEP Blood Gas Comments Sodium 135 Potassium 3.4 L Chloride 97 L Carbon Dioxide 27 Anion Gap 14 BUN 12 Creatinine 0.7 Est GFR ( Amer) > 60 Est GFR (Non-Af Amer) > 60 POC Glucose (mg/dL) Random Glucose 166 H Serum Osmolality 296 Calcium 9.5 Phosphorus Magnesium Total Bilirubin 0.4 AST 36 ALT 27 Alkaline Phosphatase 62 Total Protein 7.2 Albumin 4.1 Globulin 3.2 Albumin/Globulin Ratio 1.3 Lipase Vitamin B12 TSH 3rd Generation Arterial Blood Potassium Urine Color Urine Clarity Urine pH Ur Specific [place] Urine Protein Urine Glucose (UA) Urine Ketones Urine Blood Urine Nitrate Urine Bilirubin Urine Urobilinogen Ur Leukocyte Esterase Urine RBC (Auto) Urine Microscopic WBC Ur Squamous Epith Cells Urine Bacteria Influenza Typ A,B (EIA) Blood Type Blood Type Confirm Antibody Screen BBK History Checked 10/27/17 10/27/17 10/27/17 05:15 05:22 06:04 WBC RBC Hgb Hct MCV MCH MCHC RDW Plt Count MPV Neut % (Auto) Lymph % (Auto) [place] % (Auto) Eos % (Auto) Baso % (Auto) Neut # (Auto) Lymph # (Auto) [place] # (Auto) Eos # (Auto) Baso # (Auto) Neutrophils % (Manual) Band Neutrophils % Lymphocytes % (Manual) Monocytes % (Manual) Platelet Estimate Large Platelets Hypochromasia (manual) Anisocytosis (manual) Macrocytosis (manual) Ovalocytes PT 11.3 INR 1.0 APTT 27.2 pCO2 40 pO2 117 H HCO3 27.7 ABG pH 7.45 ABG Total CO2 29.0 H ABG O2 Saturation 99.7 H ABG O2 Content ABG Base Excess 3.5 H ABG Hemoglobin ABG Carboxyhemoglobin POC ABG HHb (Measured) ABG Methemoglobin ABG O2 Capacity Jed Test Yes ABG Potassium 3.3 L A-a O2 Difference 261.0 Hgb O2 Saturation Glucose 168 H Lactate 1.0 Vent Mode A/c Mechanical Rate 12 FiO2 60.0 Tidal Volume 450 PEEP 5 Blood Gas Comments Sodium 134.0 Potassium Chloride 100.0 Carbon Dioxide Anion Gap BUN Creatinine Est GFR ( Amer) Est GFR (Non-Af Amer) POC Glucose (mg/dL) 157 H Random Glucose Serum Osmolality Calcium Phosphorus Magnesium Total Bilirubin AST ALT Alkaline Phosphatase Total Protein Albumin Globulin Albumin/Globulin Ratio Lipase Vitamin B12 TSH 3rd Generation Arterial Blood Potassium 3.3 L Urine Color Urine Clarity Urine pH Ur Specific [place] Urine Protein Urine Glucose (UA) Urine Ketones Urine Blood Urine Nitrate Urine Bilirubin Urine Urobilinogen Ur Leukocyte Esterase Urine RBC (Auto) Urine Microscopic WBC Ur Squamous Epith Cells Urine Bacteria Influenza Typ A,B (EIA) Blood Type Blood Type Confirm Antibody Screen BBK History Checked Assessment & Plan - Assessment and Plan (Free Text) Plan: 82 yr old woman with a large right parietal intracerebral bleed that is most likely secondary to HTN, and a subdural most likely a result of fall/ trauma. She has a very poor prognosis and is now without brainstem reflexes. Plan; 1. Spoke to family about prognosis. 2. Continue all care for now 3. She is DNR. 4. Repeat CT head completed.
--- NOTE | 2017-10-27 15:18 | CT ---
PROCEDURE: CT HEAD WITHOUT CONTRAST. HISTORY: follow up [facility] COMPARISON: CT head dated 11/05. TECHNIQUE: Axial computed tomography images were obtained through the head/brain without intravenous contrast. Radiation dose: Total exam DLP = 873.4 mGy-cm. This CT exam was performed using one or more of the following dose reduction techniques: Automated exposure control, adjustment of the mA and/or kV according to patient size, and/or use of iterative reconstruction technique. FINDINGS: Right frontoparietal subdural hemorrhage is again seen with maximum depth of approximately 1.2 cm. This again causes effacement of the right cortical sulci as well as in approximately 1.4 cm right to left midline shift. Large high a right frontoparietal parenchymal hemorrhage with surrounding edema is similar in size and appearance. Additional focus of intraparenchymal hemorrhage interposed between the posterior horn of the left lateral ventricle and falx is grossly unchanged. Increased intraventricular hemorrhage is seen bilaterally with similar prominence of the bilateral lateral ventricles, likely due to impaired CSF absorption. No other significant change is identified. IMPRESSION: Similar appearances of right subdural and intraparenchymal hemorrhages with left to right midline shift. No acute finding.
--- NOTE | 2017-10-27 15:38 | CP.CCUPN ---
CCU Subjective - Physician Review Critical Care Time Spent (in minutes): 45 CCU Objective - Vital Signs / Intake & Output Vital Signs (Last 4 hours): Vital Signs Temp Pulse Resp BP Pulse Ox 10/27/17 12:00 99.7 F H 61 20 151/118 H 100 Intake and Output (Last 8hrs): Intake & Output 10/27/17 10/27/17 10/27/17 06:59 14:59 22:59 Weight 135 lb - Physical Exam Head: Positive for: Atraumatic, Normocephalic Pupils: Positive for: Non-Reactive (2 mm size, midline position), Other (no dolls eyes, no corneal reflexes) Conjunctiva: Negative for: Icteric Mouth: Positive for: Moist Mucous Membranes Neck: Positive for: Normal Range of Motion. Negative for: JVD Respiratory/Chest: Positive for: Clear to Auscultation Cardiovascular: Positive for: Regular Rate and Rhythm, Normal S1, S2. Negative for: Murmurs, Rub Abdomen: Positive for: Normal Bowel Sounds. Negative for: Tenderness, Distention, Mass/Organomegaly Lower Extremity: Positive for: Edema, NORMAL PULSES. Negative for: CALF TENDERNESS, Cyanosis Neurological: Positive for: Other (GCS = 3T) Skin: Positive for: Warm, Dry. Negative for: Rashes Psychiatric: Positive for: Other (Comatose) - Medications Active Medications: Active Medications Generic Name Dose Route Start Last Admin Trade Name Freq PRN Reason Stop Dose Admin Dexamethasone 6 mg 10/27/17 15:00 Decadron Inj IV 0300,0900,1500,2100 DENIZ Levetiracetam 500 mg/ Sodium 105 mls @ 210 mls/hr 10/26/17 21:00 10/27/17 09: 18 Chloride IVPB 210 mls/hr Q12 DENIZ Administration Insulin Human Regular 0 units 10/26/17 23:00 10/27/17 11:40 Humulin R SC Not Given ACCU-CHECK DENIZ Protocol Labetalol HCl 20 mg 10/26/17 17:53 Trandate IVP Q6H PRN Systolic Blood Pressure Mannitol 25 gm 10/27/17 05:00 10/27/17 12:03 Mannitol IV 25 gm Q8@0500,1300,2300 DENIZ Administration Oseltamivir Phosphate 75 mg 10/26/17 18:00 02/09/18 09:18 Tamiflu Cap NG 75 mg BID DENIZ Administration Protocol Pantoprazole Sodium 40 mg 10/26/17 17:45 10/27/17 09:18 Protonix Inj IVP 40 mg DAILY DENIZ Administration - Patient Studies Lab Studies: Microbiology Studies 10/26/17 14:34 Blood Culture - Preliminary Blood NO GROWTH AFTER 24 HOURS 10/26/17 17:00 Urine Culture - Preliminary Urine,Clean Catch Gram Negative Barry Lab Studies 10/27/17 10/27/17 10/27/17 Range/Units 11:39 06:04 05:22 WBC (4.8-10.8) K/uL RBC (3.80-5.20) Mil/uL Hgb (12.0-16.0) g/dL Hct (34.0-47.0) % MCV (81.0-99.0) fl MCH (27.0-31.0) pg MCHC (33.0-37.0) g/dL RDW (11.5-14.5) % Plt Count (130-400) K/uL MPV (7.2-11.7) fl Neut % (Auto) (50.0-75.0) % Lymph % (Auto) (20.0-40.0) % [place] % (Auto) (0.0-10.0) % Eos % (Auto) (0.0-4.0) % Baso % (Auto) (0.0-2.0) % Neut # (Auto) (1.8-7.0) K/uL Lymph # (Auto) (1.0-4.3) K/uL [place] # (Auto) (0.0-0.8) K/uL Eos # (Auto) (0.0-0.7) K/uL Baso # (Auto) (0.0-0.2) K/uL Neutrophils % (Manual) (42-75) % Band Neutrophils % (0-2) % Lymphocytes % (Manual) (20-50) % Monocytes % (Manual) (0-10) % Platelet Estimate (NORMAL) Large Platelets Hypochromasia (manual) Anisocytosis (manual) Macrocytosis (manual) Ovalocytes PT (9.8-13.1) Seconds INR (0.9-1.2) APTT (25.6-37.1) Seconds pCO2 40 (35-45) mm/Hg pO2 117 H (80-100) mm/Hg HCO3 27.7 (21-28) mmol/L ABG pH 7.45 (7.35-7.45) ABG Total CO2 29.0 H (22-28) mmol/L ABG O2 Saturation 99.7 H (95-98) % ABG Base Excess 3.5 H (-2.0-3.0) mmol/L Jed Test Yes ABG Potassium 3.3 L (3.6-5.2) mmol/L A-a O2 Difference 261.0 mm/Hg Glucose 168 H (65-105) mg/dL Lactate 1.0 (0.7-2.1) mmol/L Vent Mode A/c Mechanical Rate 12 FiO2 60.0 % Tidal Volume 450 PEEP 5 Sodium 134.0 (132-148) mmol/l Potassium (3.6-5.0) MMOL/L Chloride 100.0 (98-107) mmol/L Carbon Dioxide (22-30) mmol/L Anion Gap (10-20) BUN (7-17) mg/dl Creatinine (0.7-1.2) mg/dl Est GFR ( Amer) Est GFR (Non-Af Amer) POC Glucose (mg/dL) 128 H 157 H (65-110) mg/dL Random Glucose (65-105) mg/dL Serum Osmolality (272-300) mosm/kg Calcium (8.4-10.2) mg/dL Total Bilirubin (0.2-1.3) mg/dl AST (14-36) U/L ALT (9-52) U/L Alkaline Phosphatase (38-126) U/L Total Protein (6.3-8.2) G/DL Albumin (3.5-5.0) g/dL Globulin (2.2-3.9) gm/dL Albumin/Globulin Ratio (1.0-2.1) Vitamin B12 (239-931) pg/mL TSH 3rd Generation (0.46-4.68) mIU/ML Arterial Blood Potassium 3.3 L (3.6-5.2) mmol/L Urine Color (YELLOW) Urine Clarity (Clear) Urine pH (5.0-8.0) Ur Specific [place] (1.003-1.030) Urine Protein (NEGATIVE) mg/dL Urine Glucose (UA) (Normal) mg/dL Urine Ketones (NEGATIVE) mg/dL Urine Blood (NEGATIVE) Urine Nitrate (NEGATIVE) Urine Bilirubin (NEGATIVE) Urine Urobilinogen (0.2-1.0) mg/dL Ur Leukocyte Esterase (Negative) Wilbert/uL Urine RBC (Auto) (0-3) /hpf Urine Microscopic WBC (0-5) /hpf Ur Squamous Epith Cells (0-5) /hpf Urine Bacteria (<OCC) Blood Type Blood Type Confirm Antibody Screen BBK History Checked 10/27/17 10/27/17 10/27/17 Range/Units 05:15 05:15 05:15 WBC (4.8-10.8) K/uL RBC (3.80-5.20) Mil/uL Hgb (12.0-16.0) g/dL Hct (34.0-47.0) % MCV (81.0-99.0) fl MCH (27.0-31.0) pg MCHC (33.0-37.0) g/dL RDW (11.5-14.5) % Plt Count (130-400) K/uL MPV (7.2-11.7) fl Neut % (Auto) (50.0-75.0) % Lymph % (Auto) (20.0-40.0) % [place] % (Auto) (0.0-10.0) % Eos % (Auto) (0.0-4.0) % Baso % (Auto) (0.0-2.0) % Neut # (Auto) (1.8-7.0) K/uL Lymph # (Auto) (1.0-4.3) K/uL [place] # (Auto) (0.0-0.8) K/uL Eos # (Auto) (0.0-0.7) K/uL Baso # (Auto) (0.0-0.2) K/uL Neutrophils % (Manual) (42-75) % Band Neutrophils % (0-2) % Lymphocytes % (Manual) (20-50) % Monocytes % (Manual) (0-10) % Platelet Estimate (NORMAL) Large Platelets Hypochromasia (manual) Anisocytosis (manual) Macrocytosis (manual) Ovalocytes PT 11.3 (9.8-13.1) Seconds INR 1.0 (0.9-1.2) APTT 27.2 (25.6-37.1) Seconds pCO2 (35-45) mm/Hg pO2 (80-100) mm/Hg HCO3 (21-28) mmol/L ABG pH (7.35-7.45) ABG Total CO2 (22-28) mmol/L ABG O2 Saturation (95-98) % ABG Base Excess (-2.0-3.0) mmol/L Jed Test ABG Potassium (3.6-5.2) mmol/L A-a O2 Difference mm/Hg Glucose (65-105) mg/dL Lactate (0.7-2.1) mmol/L Vent Mode Mechanical Rate FiO2 % Tidal Volume PEEP Sodium 135 (132-148) mmol/l Potassium 3.4 L (3.6-5.0) MMOL/L Chloride 97 L (98-107) mmol/L Carbon Dioxide 27 (22-30) mmol/L Anion Gap 14 (10-20) BUN 12 (7-17) mg/dl Creatinine 0.7 (0.7-1.2) mg/dl Est GFR ( Amer) > 60 Est GFR (Non-Af Amer) > 60 POC Glucose (mg/dL) (65-110) mg/dL Random Glucose 166 H (65-105) mg/dL Serum Osmolality 296 (272-300) mosm/kg Calcium 9.5 (8.4-10.2) mg/dL Total Bilirubin 0.4 (0.2-1.3) mg/dl AST 36 (14-36) U/L ALT 27 (9-52) U/L Alkaline Phosphatase 62 (38-126) U/L Total Protein 7.2 (6.3-8.2) G/DL Albumin 4.1 (3.5-5.0) g/dL Globulin 3.2 (2.2-3.9) gm/dL Albumin/Globulin Ratio 1.3 (1.0-2.1) Vitamin B12 (239-931) pg/mL TSH 3rd Generation (0.46-4.68) mIU/ML Arterial Blood Potassium (3.6-5.2) mmol/L Urine Color (YELLOW) Urine Clarity (Clear) Urine pH (5.0-8.0) Ur Specific [place] (1.003-1.030) Urine Protein (NEGATIVE) mg/dL Urine Glucose (UA) (Normal) mg/dL Urine Ketones (NEGATIVE) mg/dL Urine Blood (NEGATIVE) Urine Nitrate (NEGATIVE) Urine Bilirubin (NEGATIVE) Urine Urobilinogen (0.2-1.0) mg/dL Ur Leukocyte Esterase (Negative) Wilbert/uL Urine RBC (Auto) (0-3) /hpf Urine Microscopic WBC (0-5) /hpf Ur Squamous Epith Cells (0-5) /hpf Urine Bacteria (<OCC) Blood Type Blood Type Confirm Antibody Screen BBK History Checked 10/27/17 10/27/17 10/26/17 Range/Units 05:15 05:00 21:12 WBC 10.1 (4.8-10.8) K/uL RBC 2.94 L (3.80-5.20) Mil/uL Hgb 9.4 L D (12.0-16.0) g/dL Hct 27.5 L (34.0-47.0) % MCV 93.5 (81.0-99.0) fl MCH 32.1 H (27.0-31.0) pg MCHC 34.3 (33.0-37.0) g/dL RDW 12.8 (11.5-14.5) % Plt Count 122 L D (130-400) K/uL MPV 9.1 (7.2-11.7) fl Neut % (Auto) 91.8 H (50.0-75.0) % Lymph % (Auto) 3.0 L (20.0-40.0) % [place] % (Auto) 4.9 (0.0-10.0) % Eos % (Auto) 0.0 (0.0-4.0) % Baso % (Auto) 0.3 (0.0-2.0) % Neut # (Auto) 9.2 H (1.8-7.0) K/uL Lymph # (Auto) 0.3 L (1.0-4.3) K/uL [place] # (Auto) 0.5 (0.0-0.8) K/uL Eos # (Auto) 0.0 (0.0-0.7) K/uL Baso # (Auto) 0.0 (0.0-0.2) K/uL Neutrophils % (Manual) 81 H (42-75) % Band Neutrophils % 15 H* (0-2) % Lymphocytes % (Manual) 2 L (20-50) % Monocytes % (Manual) 2 (0-10) % Platelet Estimate Slightly decreased L (NORMAL) Large Platelets Present Hypochromasia (manual) Slight Anisocytosis (manual) Slight Macrocytosis (manual) Slight Ovalocytes Moderate PT (9.8-13.1) Seconds INR (0.9-1.2) APTT (25.6-37.1) Seconds pCO2 (35-45) mm/Hg pO2 (80-100) mm/Hg HCO3 (21-28) mmol/L ABG pH (7.35-7.45) ABG Total CO2 (22-28) mmol/L ABG O2 Saturation (95-98) % ABG Base Excess (-2.0-3.0) mmol/L Jed Test ABG Potassium (3.6-5.2) mmol/L A-a O2 Difference mm/Hg Glucose (65-105) mg/dL Lactate (0.7-2.1) mmol/L Vent Mode Mechanical Rate FiO2 % Tidal Volume PEEP Sodium (132-148) mmol/l Potassium (3.6-5.0) MMOL/L Chloride (98-107) mmol/L Carbon Dioxide (22-30) mmol/L Anion Gap (10-20) BUN (7-17) mg/dl Creatinine (0.7-1.2) mg/dl Est GFR ( Amer) Est GFR (Non-Af Amer) POC Glucose (mg/dL) 137 H (65-110) mg/dL Random Glucose (65-105) mg/dL Serum Osmolality (272-300) mosm/kg Calcium (8.4-10.2) mg/dL Total Bilirubin (0.2-1.3) mg/dl AST (14-36) U/L ALT (9-52) U/L Alkaline Phosphatase (38-126) U/L Total Protein (6.3-8.2) G/DL Albumin (3.5-5.0) g/dL Globulin (2.2-3.9) gm/dL Albumin/Globulin Ratio (1.0-2.1) Vitamin B12 437 (239-931) pg/mL TSH 3rd Generation 0.75 (0.46-4.68) mIU/ML Arterial Blood Potassium (3.6-5.2) mmol/L Urine Color (YELLOW) Urine Clarity (Clear) Urine pH (5.0-8.0) Ur Specific [place] (1.003-1.030) Urine Protein (NEGATIVE) mg/dL Urine Glucose (UA) (Normal) mg/dL Urine Ketones (NEGATIVE) mg/dL Urine Blood (NEGATIVE) Urine Nitrate (NEGATIVE) Urine Bilirubin (NEGATIVE) Urine Urobilinogen (0.2-1.0) mg/dL Ur Leukocyte Esterase (Negative) Wilbert/uL Urine RBC (Auto) (0-3) /hpf Urine Microscopic WBC (0-5) /hpf Ur Squamous Epith Cells (0-5) /hpf Urine Bacteria (<OCC) Blood Type Blood Type Confirm Antibody Screen BBK History Checked 10/26/17 10/26/17 10/26/17 Range/Units 20:55 20:15 17:00 WBC (4.8-10.8) K/uL RBC (3.80-5.20) Mil/uL Hgb (12.0-16.0) g/dL Hct (34.0-47.0) % MCV (81.0-99.0) fl MCH (27.0-31.0) pg MCHC (33.0-37.0) g/dL RDW (11.5-14.5) % Plt Count (130-400) K/uL MPV (7.2-11.7) fl Neut % (Auto) (50.0-75.0) % Lymph % (Auto) (20.0-40.0) % [place] % (Auto) (0.0-10.0) % Eos % (Auto) (0.0-4.0) % Baso % (Auto) (0.0-2.0) % Neut # (Auto) (1.8-7.0) K/uL Lymph # (Auto) (1.0-4.3) K/uL [place] # (Auto) (0.0-0.8) K/uL Eos # (Auto) (0.0-0.7) K/uL Baso # (Auto) (0.0-0.2) K/uL Neutrophils % (Manual) (42-75) % Band Neutrophils % (0-2) % Lymphocytes % (Manual) (20-50) % Monocytes % (Manual) (0-10) % Platelet Estimate (NORMAL) Large Platelets Hypochromasia (manual) Anisocytosis (manual) Macrocytosis (manual) Ovalocytes PT (9.8-13.1) Seconds INR (0.9-1.2) APTT (25.6-37.1) Seconds pCO2 (35-45) mm/Hg pO2 (80-100) mm/Hg HCO3 (21-28) mmol/L ABG pH (7.35-7.45) ABG Total CO2 (22-28) mmol/L ABG O2 Saturation (95-98) % ABG Base Excess (-2.0-3.0) mmol/L Jed Test ABG Potassium (3.6-5.2) mmol/L A-a O2 Difference mm/Hg Glucose (65-105) mg/dL Lactate (0.7-2.1) mmol/L Vent Mode Mechanical Rate FiO2 % Tidal Volume PEEP Sodium (132-148) mmol/l Potassium (3.6-5.0) MMOL/L Chloride (98-107) mmol/L Carbon Dioxide (22-30) mmol/L Anion Gap (10-20) BUN (7-17) mg/dl Creatinine (0.7-1.2) mg/dl Est GFR ( Amer) Est GFR (Non-Af Amer) POC Glucose (mg/dL) (65-110) mg/dL Random Glucose (65-105) mg/dL Serum Osmolality (272-300) mosm/kg Calcium (8.4-10.2) mg/dL Total Bilirubin (0.2-1.3) mg/dl AST (14-36) U/L ALT (9-52) U/L Alkaline Phosphatase (38-126) U/L Total Protein (6.3-8.2) G/DL Albumin (3.5-5.0) g/dL Globulin (2.2-3.9) gm/dL Albumin/Globulin Ratio (1.0-2.1) Vitamin B12 (239-931) pg/mL TSH 3rd Generation (0.46-4.68) mIU/ML Arterial Blood Potassium (3.6-5.2) mmol/L Urine Color Yellow (YELLOW) Urine Clarity Slighty-cloudy (Clear) Urine pH 6.0 (5.0-8.0) Ur Specific [place] 1.014 (1.003-1.030) Urine Protein Negative (NEGATIVE) mg/dL Urine Glucose (UA) Neg (Normal) mg/dL Urine Ketones 20 (NEGATIVE) mg/dL Urine Blood Negative (NEGATIVE) Urine Nitrate Positive H (NEGATIVE) Urine Bilirubin Negative (NEGATIVE) Urine Urobilinogen 0.2-1.0 (0.2-1.0) mg/dL Ur Leukocyte Esterase Trace (Negative) Wilbert/uL Urine RBC (Auto) 3 (0-3) /hpf Urine Microscopic WBC 4 (0-5) /hpf Ur Squamous Epith Cells 1 (0-5) /hpf Urine Bacteria Many H (<OCC) Blood Type O POSITIVE Blood Type Confirm O POSITIVE Antibody Screen Negative BBK History Checked No verified bt 10/26/17 10/26/17 Range/Units 16:57 14:20 WBC (4.8-10.8) K/uL RBC (3.80-5.20) Mil/uL Hgb (12.0-16.0) g/dL Hct (34.0-47.0) % MCV (81.0-99.0) fl MCH (27.0-31.0) pg MCHC (33.0-37.0) g/dL RDW (11.5-14.5) % Plt Count (130-400) K/uL MPV (7.2-11.7) fl Neut % (Auto) (50.0-75.0) % Lymph % (Auto) (20.0-40.0) % [place] % (Auto) (0.0-10.0) % Eos % (Auto) (0.0-4.0) % Baso % (Auto) (0.0-2.0) % Neut # (Auto) (1.8-7.0) K/uL Lymph # (Auto) (1.0-4.3) K/uL [place] # (Auto) (0.0-0.8) K/uL Eos # (Auto) (0.0-0.7) K/uL Baso # (Auto) (0.0-0.2) K/uL Neutrophils % (Manual) 73 (42-75) % Band Neutrophils % 3 H (0-2) % Lymphocytes % (Manual) 10 L (20-50) % Monocytes % (Manual) 14 H (0-10) % Platelet Estimate Normal (NORMAL) Large Platelets Hypochromasia (manual) Slight Anisocytosis (manual) Macrocytosis (manual) Ovalocytes PT (9.8-13.1) Seconds INR (0.9-1.2) APTT (25.6-37.1) Seconds pCO2 (35-45) mm/Hg pO2 (80-100) mm/Hg HCO3 (21-28) mmol/L ABG pH (7.35-7.45) ABG Total CO2 (22-28) mmol/L ABG O2 Saturation (95-98) % ABG Base Excess (-2.0-3.0) mmol/L Jed Test ABG Potassium (3.6-5.2) mmol/L A-a O2 Difference mm/Hg Glucose (65-105) mg/dL Lactate (0.7-2.1) mmol/L Vent Mode Mechanical Rate FiO2 % Tidal Volume PEEP Sodium (132-148) mmol/l Potassium (3.6-5.0) MMOL/L Chloride (98-107) mmol/L Carbon Dioxide (22-30) mmol/L Anion Gap (10-20) BUN (7-17) mg/dl Creatinine (0.7-1.2) mg/dl Est GFR ( Amer) Est GFR (Non-Af Amer) POC Glucose (mg/dL) 158 H (65-110) mg/dL Random Glucose (65-105) mg/dL Serum Osmolality (272-300) mosm/kg Calcium (8.4-10.2) mg/dL Total Bilirubin (0.2-1.3) mg/dl AST (14-36) U/L ALT (9-52) U/L Alkaline Phosphatase (38-126) U/L Total Protein (6.3-8.2) G/DL Albumin (3.5-5.0) g/dL Globulin (2.2-3.9) gm/dL Albumin/Globulin Ratio (1.0-2.1) Vitamin B12 (239-931) pg/mL TSH 3rd Generation (0.46-4.68) mIU/ML Arterial Blood Potassium (3.6-5.2) mmol/L Urine Color (YELLOW) Urine Clarity (Clear) Urine pH (5.0-8.0) Ur Specific [place] (1.003-1.030) Urine Protein (NEGATIVE) mg/dL Urine Glucose (UA) (Normal) mg/dL Urine Ketones (NEGATIVE) mg/dL Urine Blood (NEGATIVE) Urine Nitrate (NEGATIVE) Urine Bilirubin (NEGATIVE) Urine Urobilinogen (0.2-1.0) mg/dL Ur Leukocyte Esterase (Negative) Wilbert/uL Urine RBC (Auto) (0-3) /hpf Urine Microscopic WBC (0-5) /hpf Ur Squamous Epith Cells (0-5) /hpf Urine Bacteria (<OCC) Blood Type Blood Type Confirm Antibody Screen BBK History Checked Laboratory Results - last 24 hr 10/26/17 10/26/17 10/26/17 14:20 16:57 17:00 WBC RBC Hgb Hct MCV MCH MCHC RDW Plt Count MPV Neut % (Auto) Lymph % (Auto) [place] % (Auto) Eos % (Auto) Baso % (Auto) Neut # (Auto) Lymph # (Auto) [place] # (Auto) Eos # (Auto) Baso # (Auto) Neutrophils % (Manual) 73 Band Neutrophils % 3 H Lymphocytes % (Manual) 10 L Monocytes % (Manual) 14 H Platelet Estimate Normal Large Platelets Hypochromasia (manual) Slight Anisocytosis (manual) Macrocytosis (manual) Ovalocytes PT INR APTT pCO2 pO2 HCO3 ABG pH ABG Total CO2 ABG O2 Saturation ABG Base Excess Jed Test ABG Potassium A-a O2 Difference Glucose Lactate Vent Mode Mechanical Rate FiO2 Tidal Volume PEEP Sodium Potassium Chloride Carbon Dioxide Anion Gap BUN Creatinine Est GFR ( Amer) Est GFR (Non-Af Amer) POC Glucose (mg/dL) 158 H Random Glucose Serum Osmolality Calcium Total Bilirubin AST ALT Alkaline Phosphatase Total Protein Albumin Globulin Albumin/Globulin Ratio Vitamin B12 TSH 3rd Generation Arterial Blood Potassium Urine Color Yellow Urine Clarity Slighty-cloudy Urine pH 6.0 Ur Specific [place] 1.014 Urine Protein Negative Urine Glucose (UA) Neg Urine Ketones 20 Urine Blood Negative Urine Nitrate Positive H Urine Bilirubin Negative Urine Urobilinogen 0.2-1.0 Ur Leukocyte Esterase Trace Urine RBC (Auto) 3 Urine Microscopic WBC 4 Ur Squamous Epith Cells 1 Urine Bacteria Many H Blood Type Blood Type Confirm Antibody Screen BBK History Checked 10/26/17 10/26/17 10/26/17 20:15 20:55 21:12 WBC RBC Hgb Hct MCV MCH MCHC RDW Plt Count MPV Neut % (Auto) Lymph % (Auto) [place] % (Auto) Eos % (Auto) Baso % (Auto) Neut # (Auto) Lymph # (Auto) [place] # (Auto) Eos # (Auto) Baso # (Auto) Neutrophils % (Manual) Band Neutrophils % Lymphocytes % (Manual) Monocytes % (Manual) Platelet Estimate Large Platelets Hypochromasia (manual) Anisocytosis (manual) Macrocytosis (manual) Ovalocytes PT INR APTT pCO2 pO2 HCO3 ABG pH ABG Total CO2 ABG O2 Saturation ABG Base Excess Jed Test ABG Potassium A-a O2 Difference Glucose Lactate Vent Mode Mechanical Rate FiO2 Tidal Volume PEEP Sodium Potassium Chloride Carbon Dioxide Anion Gap BUN Creatinine Est GFR ( Amer) Est GFR (Non-Af Amer) POC Glucose (mg/dL) 137 H Random Glucose Serum Osmolality Calcium Total Bilirubin AST ALT Alkaline Phosphatase Total Protein Albumin Globulin Albumin/Globulin Ratio Vitamin B12 TSH 3rd Generation Arterial Blood Potassium Urine Color Urine Clarity Urine pH Ur Specific [place] Urine Protein Urine Glucose (UA) Urine Ketones Urine Blood Urine Nitrate Urine Bilirubin Urine Urobilinogen Ur Leukocyte Esterase Urine RBC (Auto) Urine Microscopic WBC Ur Squamous Epith Cells Urine Bacteria Blood Type O POSITIVE Blood Type Confirm O POSITIVE Antibody Screen Negative BBK History Checked No verified bt 10/27/17 10/27/17 10/27/17 05:00 05:15 05:15 WBC 10.1 RBC 2.94 L Hgb 9.4 L D Hct 27.5 L MCV 93.5 MCH 32.1 H MCHC 34.3 RDW 12.8 Plt Count 122 L D MPV 9.1 Neut % (Auto) 91.8 H Lymph % (Auto) 3.0 L [place] % (Auto) 4.9 Eos % (Auto) 0.0 Baso % (Auto) 0.3 Neut # (Auto) 9.2 H Lymph # (Auto) 0.3 L [place] # (Auto) 0.5 Eos # (Auto) 0.0 Baso # (Auto) 0.0 Neutrophils % (Manual) 81 H Band Neutrophils % 15 H* Lymphocytes % (Manual) 2 L Monocytes % (Manual) 2 Platelet Estimate Slightly decreased L Large Platelets Present Hypochromasia (manual) Slight Anisocytosis (manual) Slight Macrocytosis (manual) Slight Ovalocytes Moderate PT INR APTT pCO2 pO2 HCO3 ABG pH ABG Total CO2 ABG O2 Saturation ABG Base Excess Jed Test ABG Potassium A-a O2 Difference Glucose Lactate Vent Mode Mechanical Rate FiO2 Tidal Volume PEEP Sodium 135 Potassium 3.4 L Chloride 97 L Carbon Dioxide 27 Anion Gap 14 BUN 12 Creatinine 0.7 Est GFR ( Amer) > 60 Est GFR (Non-Af Amer) > 60 POC Glucose (mg/dL) Random Glucose 166 H Serum Osmolality Calcium 9.5 Total Bilirubin 0.4 AST 36 ALT 27 Alkaline Phosphatase 62 Total Protein 7.2 Albumin 4.1 Globulin 3.2 Albumin/Globulin Ratio 1.3 Vitamin B12 437 TSH 3rd Generation 0.75 Arterial Blood Potassium Urine Color Urine Clarity Urine pH Ur Specific [place] Urine Protein Urine Glucose (UA) Urine Ketones Urine Blood Urine Nitrate Urine Bilirubin Urine Urobilinogen Ur Leukocyte Esterase Urine RBC (Auto) Urine Microscopic WBC Ur Squamous Epith Cells Urine Bacteria Blood Type Blood Type Confirm Antibody Screen BBK History Checked 10/27/17 10/27/17 10/27/17 05:15 05:15 05:22 WBC RBC Hgb Hct MCV MCH MCHC RDW Plt Count MPV Neut % (Auto) Lymph % (Auto) [place] % (Auto) Eos % (Auto) Baso % (Auto) Neut # (Auto) Lymph # (Auto) [place] # (Auto) Eos # (Auto) Baso # (Auto) Neutrophils % (Manual) Band Neutrophils % Lymphocytes % (Manual) Monocytes % (Manual) Platelet Estimate Large Platelets Hypochromasia (manual) Anisocytosis (manual) Macrocytosis (manual) Ovalocytes PT 11.3 INR 1.0 APTT 27.2 pCO2 40 pO2 117 H HCO3 27.7 ABG pH 7.45 ABG Total CO2 29.0 H ABG O2 Saturation 99.7 H ABG Base Excess 3.5 H Jed Test Yes ABG Potassium 3.3 L A-a O2 Difference 261.0 Glucose 168 H Lactate 1.0 Vent Mode A/c Mechanical Rate 12 FiO2 60.0 Tidal Volume 450 PEEP 5 Sodium 134.0 Potassium Chloride 100.0 Carbon Dioxide Anion Gap BUN Creatinine Est GFR ( Amer) Est GFR (Non-Af Amer) POC Glucose (mg/dL) Random Glucose Serum Osmolality 296 Calcium Total Bilirubin AST ALT Alkaline Phosphatase Total Protein Albumin Globulin Albumin/Globulin Ratio Vitamin B12 TSH 3rd Generation Arterial Blood Potassium 3.3 L Urine Color Urine Clarity Urine pH Ur Specific [place] Urine Protein Urine Glucose (UA) Urine Ketones Urine Blood Urine Nitrate Urine Bilirubin Urine Urobilinogen Ur Leukocyte Esterase Urine RBC (Auto) Urine Microscopic WBC Ur Squamous Epith Cells Urine Bacteria Blood Type Blood Type Confirm Antibody Screen BBK History Checked 10/27/17 10/27/17 06:04 11:39 WBC RBC Hgb Hct MCV MCH MCHC RDW Plt Count MPV Neut % (Auto) Lymph % (Auto) [place] % (Auto) Eos % (Auto) Baso % (Auto) Neut # (Auto) Lymph # (Auto) [place] # (Auto) Eos # (Auto) Baso # (Auto) Neutrophils % (Manual) Band Neutrophils % Lymphocytes % (Manual) Monocytes % (Manual) Platelet Estimate Large Platelets Hypochromasia (manual) Anisocytosis (manual) Macrocytosis (manual) Ovalocytes PT INR APTT pCO2 pO2 HCO3 ABG pH ABG Total CO2 ABG O2 Saturation ABG Base Excess Jed Test ABG Potassium A-a O2 Difference Glucose Lactate Vent Mode Mechanical Rate FiO2 Tidal Volume PEEP Sodium Potassium Chloride Carbon Dioxide Anion Gap BUN Creatinine Est GFR ( Amer) Est GFR (Non-Af Amer) POC Glucose (mg/dL) 157 H 128 H Random Glucose Serum Osmolality Calcium Total Bilirubin AST ALT Alkaline Phosphatase Total Protein Albumin Globulin Albumin/Globulin Ratio Vitamin B12 TSH 3rd Generation Arterial Blood Potassium Urine Color Urine Clarity Urine pH Ur Specific [place] Urine Protein Urine Glucose (UA) Urine Ketones Urine Blood Urine Nitrate Urine Bilirubin Urine Urobilinogen Ur Leukocyte Esterase Urine RBC (Auto) Urine Microscopic WBC Ur Squamous Epith Cells Urine Bacteria Blood Type Blood Type Confirm Antibody Screen BBK History Checked EKG/Cardiology Studies: Cardiology / EKG Studies 10/27/17 09:00 ELECTROCARDIOGRAM DAILY Comment: Mode Of Transportation: Reason For Exam: AMS Fingerstick Blood Sugar Results: 128
--- NOTE | 2017-10-27 17:36 | CP.CCUPN ---
<Lisa Singletary - Last Filed: 10/27/17 17:56> CCU Subjective - Physician Review Subjective (Free Text): 10/27/17 82F with PMH: HTN, on Losartan, ASA; mild Dementia: admitted via ER after family c/o recent cough, body aches, vomiting and progressive lethargy. Initial eval in ER with CT brain showed moderate size R SDH and deep R parietal- occipital intraparenchymal bleed; with associated R hemispheric edema and loss of 4th ventricle. Patient orally intubated in ED after sedation with Succinylcholine and Etomidate. Patient seen and examined at bedside with preventive medicine physician attending. Patient still in deep coma, unresponsive to verbal, tactile or deep painful stimuli. VS on meditech : T: 98.4 F, pulse rate: 62/min, BP: 132/70, RR: 12, oxygen sat 100 % on FiO2. Family at bedside. Critical Care Time Spent (in minutes): 45 CCU Objective - Vital Signs / Intake & Output Vital Signs (Last 4 hours): Vital Signs Temp Pulse Resp BP Pulse Ox 10/27/17 16:40 99.6 F 72 33 H 164/95 H 100 10/27/17 14:00 92 H 28 H 102/56 L 99 Intake and Output (Last 8hrs): Intake & Output 10/27/17 10/27/17 10/27/17 06:59 14:59 22:59 Weight 135 lb - Physical Exam Head: Positive for: Atraumatic, Normocephalic Pupils: Positive for: Non-Reactive (2 mm size, midline position), Other (no dolls eyes, no corneal reflexes) Conjunctiva: Negative for: Icteric Mouth: Positive for: Moist Mucous Membranes Neck: Positive for: Normal Range of Motion. Negative for: JVD Respiratory/Chest: Positive for: Clear to Auscultation Cardiovascular: Positive for: Regular Rate and Rhythm, Normal S1, S2. Negative for: Murmurs, Rub Abdomen: Positive for: Normal Bowel Sounds. Negative for: Tenderness, Distention, Mass/Organomegaly Lower Extremity: Positive for: Edema, NORMAL PULSES. Negative for: CALF TENDERNESS, Cyanosis Neurological: Positive for: Other (GCS = 3T) Skin: Positive for: Warm, Dry. Negative for: Rashes Psychiatric: Positive for: Other (Comatose) - Medications Active Medications: Active Medications Generic Name Dose Route Start Last Admin Trade Name Freq PRN Reason Stop Dose Admin Dexamethasone 6 mg 10/27/17 15:00 Decadron Inj IV 0300,0900,1500,2100 PENDING SALE TO [facility] Levetiracetam 500 mg/ Sodium 105 mls @ 210 mls/hr 10/26/17 21:00 10/27/17 09: 18 Chloride IVPB 210 mls/hr Q12 DENIZ Administration Insulin Human Regular 0 units 10/26/17 23:00 10/27/17 11:40 Humulin R SC Not Given ACCU-CHECK DENIZ Protocol Labetalol HCl 20 mg 10/26/17 17:53 Trandate IVP Q6H PRN Systolic Blood Pressure Mannitol 25 gm 10/27/17 05:00 10/27/17 12:03 Mannitol IV 25 gm Q8@0500,1300,2300 DENIZ Administration Oseltamivir Phosphate 75 mg 10/26/17 18:00 10/27/17 16:50 Tamiflu Cap NG 75 mg BID DENIZ Administration Protocol Pantoprazole Sodium 40 mg 10/26/17 17:45 10/27/17 09:18 Protonix Inj IVP 40 mg DAILY DENIZ Administration - Patient Studies Lab Studies: Microbiology Studies 10/26/17 14:34 Blood Culture - Preliminary Blood NO GROWTH AFTER 24 HOURS 10/26/17 17:00 Urine Culture - Preliminary Urine,Clean Catch Gram Negative Barry Lab Studies 10/27/17 10/27/17 10/27/17 Range/Units 11:39 06:04 05:22 WBC (4.8-10.8) K/uL RBC (3.80-5.20) Mil/uL Hgb (12.0-16.0) g/dL Hct (34.0-47.0) % MCV (81.0-99.0) fl MCH (27.0-31.0) pg MCHC (33.0-37.0) g/dL RDW (11.5-14.5) % Plt Count (130-400) K/uL MPV (7.2-11.7) fl Neut % (Auto) (50.0-75.0) % Lymph % (Auto) (20.0-40.0) % Bland % (Auto) (0.0-10.0) % Eos % (Auto) (0.0-4.0) % Baso % (Auto) (0.0-2.0) % Neut # (Auto) (1.8-7.0) K/uL Lymph # (Auto) (1.0-4.3) K/uL Bland # (Auto) (0.0-0.8) K/uL Eos # (Auto) (0.0-0.7) K/uL Baso # (Auto) (0.0-0.2) K/uL Neutrophils % (Manual) (42-75) % Band Neutrophils % (0-2) % Lymphocytes % (Manual) (20-50) % Monocytes % (Manual) (0-10) % Platelet Estimate (NORMAL) Large Platelets Hypochromasia (manual) Anisocytosis (manual) Macrocytosis (manual) Ovalocytes PT (9.8-13.1) Seconds INR (0.9-1.2) APTT (25.6-37.1) Seconds pCO2 40 (35-45) mm/Hg pO2 117 H (80-100) mm/Hg HCO3 27.7 (21-28) mmol/L ABG pH 7.45 (7.35-7.45) ABG Total CO2 29.0 H (22-28) mmol/L ABG O2 Saturation 99.7 H (95-98) % ABG Base Excess 3.5 H (-2.0-3.0) mmol/L Jed Test Yes ABG Potassium 3.3 L (3.6-5.2) mmol/L A-a O2 Difference 261.0 mm/Hg Glucose 168 H (65-105) mg/dL Lactate 1.0 (0.7-2.1) mmol/L Vent Mode A/c Mechanical Rate 12 FiO2 60.0 % Tidal Volume 450 PEEP 5 Sodium 134.0 (132-148) mmol/l Potassium (3.6-5.0) MMOL/L Chloride 100.0 (98-107) mmol/L Carbon Dioxide (22-30) mmol/L Anion Gap (10-20) BUN (7-17) mg/dl Creatinine (0.7-1.2) mg/dl Est GFR ( Amer) Est GFR (Non-Af Amer) POC Glucose (mg/dL) 128 H 157 H (65-110) mg/dL Random Glucose (65-105) mg/dL Serum Osmolality (272-300) mosm/kg Calcium (8.4-10.2) mg/dL Total Bilirubin (0.2-1.3) mg/dl AST (14-36) U/L ALT (9-52) U/L Alkaline Phosphatase (38-126) U/L Total Protein (6.3-8.2) G/DL Albumin (3.5-5.0) g/dL Globulin (2.2-3.9) gm/dL Albumin/Globulin Ratio (1.0-2.1) Vitamin B12 (239-931) pg/mL TSH 3rd Generation (0.46-4.68) mIU/ML Arterial Blood Potassium 3.3 L (3.6-5.2) mmol/L Urine Color (YELLOW) Urine Clarity (Clear) Urine pH (5.0-8.0) Ur Specific [place] (1.003-1.030) Urine Protein (NEGATIVE) mg/dL Urine Glucose (UA) (Normal) mg/dL Urine Ketones (NEGATIVE) mg/dL Urine Blood (NEGATIVE) Urine Nitrate (NEGATIVE) Urine Bilirubin (NEGATIVE) Urine Urobilinogen (0.2-1.0) mg/dL Ur Leukocyte Esterase (Negative) Wilbert/uL Urine RBC (Auto) (0-3) /hpf Urine Microscopic WBC (0-5) /hpf Ur Squamous Epith Cells (0-5) /hpf Urine Bacteria (<OCC) Blood Type Blood Type Confirm Antibody Screen BBK History Checked 10/27/17 10/27/17 10/27/17 Range/Units 05:15 05:15 05:15 WBC (4.8-10.8) K/uL RBC (3.80-5.20) Mil/uL Hgb (12.0-16.0) g/dL Hct (34.0-47.0) % MCV (81.0-99.0) fl MCH (27.0-31.0) pg MCHC (33.0-37.0) g/dL RDW (11.5-14.5) % Plt Count (130-400) K/uL MPV (7.2-11.7) fl Neut % (Auto) (50.0-75.0) % Lymph % (Auto) (20.0-40.0) % Bland % (Auto) (0.0-10.0) % Eos % (Auto) (0.0-4.0) % Baso % (Auto) (0.0-2.0) % Neut # (Auto) (1.8-7.0) K/uL Lymph # (Auto) (1.0-4.3) K/uL Bland # (Auto) (0.0-0.8) K/uL Eos # (Auto) (0.0-0.7) K/uL Baso # (Auto) (0.0-0.2) K/uL Neutrophils % (Manual) (42-75) % Band Neutrophils % (0-2) % Lymphocytes % (Manual) (20-50) % Monocytes % (Manual) (0-10) % Platelet Estimate (NORMAL) Large Platelets Hypochromasia (manual) Anisocytosis (manual) Macrocytosis (manual) Ovalocytes PT 11.3 (9.8-13.1) Seconds INR 1.0 (0.9-1.2) APTT 27.2 (25.6-37.1) Seconds pCO2 (35-45) mm/Hg pO2 (80-100) mm/Hg HCO3 (21-28) mmol/L ABG pH (7.35-7.45) ABG Total CO2 (22-28) mmol/L ABG O2 Saturation (95-98) % ABG Base Excess (-2.0-3.0) mmol/L Jed Test ABG Potassium (3.6-5.2) mmol/L A-a O2 Difference mm/Hg Glucose (65-105) mg/dL Lactate (0.7-2.1) mmol/L Vent Mode Mechanical Rate FiO2 % Tidal Volume PEEP Sodium 135 (132-148) mmol/l Potassium 3.4 L (3.6-5.0) MMOL/L Chloride 97 L (98-107) mmol/L Carbon Dioxide 27 (22-30) mmol/L Anion Gap 14 (10-20) BUN 12 (7-17) mg/dl Creatinine 0.7 (0.7-1.2) mg/dl Est GFR ( Amer) > 60 Est GFR (Non-Af Amer) > 60 POC Glucose (mg/dL) (65-110) mg/dL Random Glucose 166 H (65-105) mg/dL Serum Osmolality 296 (272-300) mosm/kg Calcium 9.5 (8.4-10.2) mg/dL Total Bilirubin 0.4 (0.2-1.3) mg/dl AST 36 (14-36) U/L ALT 27 (9-52) U/L Alkaline Phosphatase 62 (38-126) U/L Total Protein 7.2 (6.3-8.2) G/DL Albumin 4.1 (3.5-5.0) g/dL Globulin 3.2 (2.2-3.9) gm/dL Albumin/Globulin Ratio 1.3 (1.0-2.1) Vitamin B12 (239-931) pg/mL TSH 3rd Generation (0.46-4.68) mIU/ML Arterial Blood Potassium (3.6-5.2) mmol/L Urine Color (YELLOW) Urine Clarity (Clear) Urine pH (5.0-8.0) Ur Specific [place] (1.003-1.030) Urine Protein (NEGATIVE) mg/dL Urine Glucose (UA) (Normal) mg/dL Urine Ketones (NEGATIVE) mg/dL Urine Blood (NEGATIVE) Urine Nitrate (NEGATIVE) Urine Bilirubin (NEGATIVE) Urine Urobilinogen (0.2-1.0) mg/dL Ur Leukocyte Esterase (Negative) Wilbert/uL Urine RBC (Auto) (0-3) /hpf Urine Microscopic WBC (0-5) /hpf Ur Squamous Epith Cells (0-5) /hpf Urine Bacteria (<OCC) Blood Type Blood Type Confirm Antibody Screen BBK History Checked 10/27/17 10/27/17 10/26/17 Range/Units 05:15 05:00 21:12 WBC 10.1 (4.8-10.8) K/uL RBC 2.94 L (3.80-5.20) Mil/uL Hgb 9.4 L D (12.0-16.0) g/dL Hct 27.5 L (34.0-47.0) % MCV 93.5 (81.0-99.0) fl MCH 32.1 H (27.0-31.0) pg MCHC 34.3 (33.0-37.0) g/dL RDW 12.8 (11.5-14.5) % Plt Count 122 L D (130-400) K/uL MPV 9.1 (7.2-11.7) fl Neut % (Auto) 91.8 H (50.0-75.0) % Lymph % (Auto) 3.0 L (20.0-40.0) % Bland % (Auto) 4.9 (0.0-10.0) % Eos % (Auto) 0.0 (0.0-4.0) % Baso % (Auto) 0.3 (0.0-2.0) % Neut # (Auto) 9.2 H (1.8-7.0) K/uL Lymph # (Auto) 0.3 L (1.0-4.3) K/uL Bland # (Auto) 0.5 (0.0-0.8) K/uL Eos # (Auto) 0.0 (0.0-0.7) K/uL Baso # (Auto) 0.0 (0.0-0.2) K/uL Neutrophils % (Manual) 81 H (42-75) % Band Neutrophils % 15 H* (0-2) % Lymphocytes % (Manual) 2 L (20-50) % Monocytes % (Manual) 2 (0-10) % Platelet Estimate Slightly decreased L (NORMAL) Large Platelets Present Hypochromasia (manual) Slight Anisocytosis (manual) Slight Macrocytosis (manual) Slight Ovalocytes Moderate PT (9.8-13.1) Seconds INR (0.9-1.2) APTT (25.6-37.1) Seconds pCO2 (35-45) mm/Hg pO2 (80-100) mm/Hg HCO3 (21-28) mmol/L ABG pH (7.35-7.45) ABG Total CO2 (22-28) mmol/L ABG O2 Saturation (95-98) % ABG Base Excess (-2.0-3.0) mmol/L Jed Test ABG Potassium (3.6-5.2) mmol/L A-a O2 Difference mm/Hg Glucose (65-105) mg/dL Lactate (0.7-2.1) mmol/L Vent Mode Mechanical Rate FiO2 % Tidal Volume PEEP Sodium (132-148) mmol/l Potassium (3.6-5.0) MMOL/L Chloride (98-107) mmol/L Carbon Dioxide (22-30) mmol/L Anion Gap (10-20) BUN (7-17) mg/dl Creatinine (0.7-1.2) mg/dl Est GFR ( Amer) Est GFR (Non-Af Amer) POC Glucose (mg/dL) 137 H (65-110) mg/dL Random Glucose (65-105) mg/dL Serum Osmolality (272-300) mosm/kg Calcium (8.4-10.2) mg/dL Total Bilirubin (0.2-1.3) mg/dl AST (14-36) U/L ALT (9-52) U/L Alkaline Phosphatase (38-126) U/L Total Protein (6.3-8.2) G/DL Albumin (3.5-5.0) g/dL Globulin (2.2-3.9) gm/dL Albumin/Globulin Ratio (1.0-2.1) Vitamin B12 437 (239-931) pg/mL TSH 3rd Generation 0.75 (0.46-4.68) mIU/ML Arterial Blood Potassium (3.6-5.2) mmol/L Urine Color (YELLOW) Urine Clarity (Clear) Urine pH (5.0-8.0) Ur Specific [place] (1.003-1.030) Urine Protein (NEGATIVE) mg/dL Urine Glucose (UA) (Normal) mg/dL Urine Ketones (NEGATIVE) mg/dL Urine Blood (NEGATIVE) Urine Nitrate (NEGATIVE) Urine Bilirubin (NEGATIVE) Urine Urobilinogen (0.2-1.0) mg/dL Ur Leukocyte Esterase (Negative) Wilbert/uL Urine RBC (Auto) (0-3) /hpf Urine Microscopic WBC (0-5) /hpf Ur Squamous Epith Cells (0-5) /hpf Urine Bacteria (<OCC) Blood Type Blood Type Confirm Antibody Screen BBK History Checked 10/26/17 10/26/17 10/26/17 Range/Units 20:55 20:15 17:00 WBC (4.8-10.8) K/uL RBC (3.80-5.20) Mil/uL Hgb (12.0-16.0) g/dL Hct (34.0-47.0) % MCV (81.0-99.0) fl MCH (27.0-31.0) pg MCHC (33.0-37.0) g/dL RDW (11.5-14.5) % Plt Count (130-400) K/uL MPV (7.2-11.7) fl Neut % (Auto) (50.0-75.0) % Lymph % (Auto) (20.0-40.0) % Bland % (Auto) (0.0-10.0) % Eos % (Auto) (0.0-4.0) % Baso % (Auto) (0.0-2.0) % Neut # (Auto) (1.8-7.0) K/uL Lymph # (Auto) (1.0-4.3) K/uL Bland # (Auto) (0.0-0.8) K/uL Eos # (Auto) (0.0-0.7) K/uL Baso # (Auto) (0.0-0.2) K/uL Neutrophils % (Manual) (42-75) % Band Neutrophils % (0-2) % Lymphocytes % (Manual) (20-50) % Monocytes % (Manual) (0-10) % Platelet Estimate (NORMAL) Large Platelets Hypochromasia (manual) Anisocytosis (manual) Macrocytosis (manual) Ovalocytes PT (9.8-13.1) Seconds INR (0.9-1.2) APTT (25.6-37.1) Seconds pCO2 (35-45) mm/Hg pO2 (80-100) mm/Hg HCO3 (21-28) mmol/L ABG pH (7.35-7.45) ABG Total CO2 (22-28) mmol/L ABG O2 Saturation (95-98) % ABG Base Excess (-2.0-3.0) mmol/L Jed Test ABG Potassium (3.6-5.2) mmol/L A-a O2 Difference mm/Hg Glucose (65-105) mg/dL Lactate (0.7-2.1) mmol/L Vent Mode Mechanical Rate FiO2 % Tidal Volume PEEP Sodium (132-148) mmol/l Potassium (3.6-5.0) MMOL/L Chloride (98-107) mmol/L Carbon Dioxide (22-30) mmol/L Anion Gap (10-20) BUN (7-17) mg/dl Creatinine (0.7-1.2) mg/dl Est GFR ( Amer) Est GFR (Non-Af Amer) POC Glucose (mg/dL) (65-110) mg/dL Random Glucose (65-105) mg/dL Serum Osmolality (272-300) mosm/kg Calcium (8.4-10.2) mg/dL Total Bilirubin (0.2-1.3) mg/dl AST (14-36) U/L ALT (9-52) U/L Alkaline Phosphatase (38-126) U/L Total Protein (6.3-8.2) G/DL Albumin (3.5-5.0) g/dL Globulin (2.2-3.9) gm/dL Albumin/Globulin Ratio (1.0-2.1) Vitamin B12 (239-931) pg/mL TSH 3rd Generation (0.46-4.68) mIU/ML Arterial Blood Potassium (3.6-5.2) mmol/L Urine Color Yellow (YELLOW) Urine Clarity Slighty-cloudy (Clear) Urine pH 6.0 (5.0-8.0) Ur Specific [place] 1.014 (1.003-1.030) Urine Protein Negative (NEGATIVE) mg/dL Urine Glucose (UA) Neg (Normal) mg/dL Urine Ketones 20 (NEGATIVE) mg/dL Urine Blood Negative (NEGATIVE) Urine Nitrate Positive H (NEGATIVE) Urine Bilirubin Negative (NEGATIVE) Urine Urobilinogen 0.2-1.0 (0.2-1.0) mg/dL Ur Leukocyte Esterase Trace (Negative) Wilbert/uL Urine RBC (Auto) 3 (0-3) /hpf Urine Microscopic WBC 4 (0-5) /hpf Ur Squamous Epith Cells 1 (0-5) /hpf Urine Bacteria Many H (<OCC) Blood Type O POSITIVE Blood Type Confirm O POSITIVE Antibody Screen Negative BBK History Checked No verified bt Laboratory Results - last 24 hr 10/26/17 10/26/17 10/26/17 17:00 20:15 20:55 WBC RBC Hgb Hct MCV MCH MCHC RDW Plt Count MPV Neut % (Auto) Lymph % (Auto) Bland % (Auto) Eos % (Auto) Baso % (Auto) Neut # (Auto) Lymph # (Auto) Bland # (Auto) Eos # (Auto) Baso # (Auto) Neutrophils % (Manual) Band Neutrophils % Lymphocytes % (Manual) Monocytes % (Manual) Platelet Estimate Large Platelets Hypochromasia (manual) Anisocytosis (manual) Macrocytosis (manual) Ovalocytes PT INR APTT pCO2 pO2 HCO3 ABG pH ABG Total CO2 ABG O2 Saturation ABG Base Excess Jed Test ABG Potassium A-a O2 Difference Glucose Lactate Vent Mode Mechanical Rate FiO2 Tidal Volume PEEP Sodium Potassium Chloride Carbon Dioxide Anion Gap BUN Creatinine Est GFR ( Amer) Est GFR (Non-Af Amer) POC Glucose (mg/dL) Random Glucose Serum Osmolality Calcium Total Bilirubin AST ALT Alkaline Phosphatase Total Protein Albumin Globulin Albumin/Globulin Ratio Vitamin B12 TSH 3rd Generation Arterial Blood Potassium Urine Color Yellow Urine Clarity Slighty-cloudy Urine pH 6.0 Ur Specific [place] 1.014 Urine Protein Negative Urine Glucose (UA) Neg Urine Ketones 20 Urine Blood Negative Urine Nitrate Positive H Urine Bilirubin Negative Urine Urobilinogen 0.2-1.0 Ur Leukocyte Esterase Trace Urine RBC (Auto) 3 Urine Microscopic WBC 4 Ur Squamous Epith Cells 1 Urine Bacteria Many H Blood Type O POSITIVE Blood Type Confirm O POSITIVE Antibody Screen Negative BBK History Checked No verified bt 10/26/17 10/27/17 10/27/17 21:12 05:00 05:15 WBC 10.1 RBC 2.94 L Hgb 9.4 L D Hct 27.5 L MCV 93.5 MCH 32.1 H MCHC 34.3 RDW 12.8 Plt Count 122 L D MPV 9.1 Neut % (Auto) 91.8 H Lymph % (Auto) 3.0 L Bland % (Auto) 4.9 Eos % (Auto) 0.0 Baso % (Auto) 0.3 Neut # (Auto) 9.2 H Lymph # (Auto) 0.3 L Bland # (Auto) 0.5 Eos # (Auto) 0.0 Baso # (Auto) 0.0 Neutrophils % (Manual) 81 H Band Neutrophils % 15 H* Lymphocytes % (Manual) 2 L Monocytes % (Manual) 2 Platelet Estimate Slightly decreased L Large Platelets Present Hypochromasia (manual) Slight Anisocytosis (manual) Slight Macrocytosis (manual) Slight Ovalocytes Moderate PT INR APTT pCO2 pO2 HCO3 ABG pH ABG Total CO2 ABG O2 Saturation ABG Base Excess Jed Test ABG Potassium A-a O2 Difference Glucose Lactate Vent Mode Mechanical Rate FiO2 Tidal Volume PEEP Sodium Potassium Chloride Carbon Dioxide Anion Gap BUN Creatinine Est GFR ( Amer) Est GFR (Non-Af Amer) POC Glucose (mg/dL) 137 H Random Glucose Serum Osmolality Calcium Total Bilirubin AST ALT Alkaline Phosphatase Total Protein Albumin Globulin Albumin/Globulin Ratio Vitamin B12 437 TSH 3rd Generation 0.75 Arterial Blood Potassium Urine Color Urine Clarity Urine pH Ur Specific [place] Urine Protein Urine Glucose (UA) Urine Ketones Urine Blood Urine Nitrate Urine Bilirubin Urine Urobilinogen Ur Leukocyte Esterase Urine RBC (Auto) Urine Microscopic WBC Ur Squamous Epith Cells Urine Bacteria Blood Type Blood Type Confirm Antibody Screen BBK History Checked 10/27/17 10/27/17 10/27/17 05:15 05:15 05:15 WBC RBC Hgb Hct MCV MCH MCHC RDW Plt Count MPV Neut % (Auto) Lymph % (Auto) Bland % (Auto) Eos % (Auto) Baso % (Auto) Neut # (Auto) Lymph # (Auto) Bland # (Auto) Eos # (Auto) Baso # (Auto) Neutrophils % (Manual) Band Neutrophils % Lymphocytes % (Manual) Monocytes % (Manual) Platelet Estimate Large Platelets Hypochromasia (manual) Anisocytosis (manual) Macrocytosis (manual) Ovalocytes PT 11.3 INR 1.0 APTT 27.2 pCO2 pO2 HCO3 ABG pH ABG Total CO2 ABG O2 Saturation ABG Base Excess Jed Test ABG Potassium A-a O2 Difference Glucose Lactate Vent Mode Mechanical Rate FiO2 Tidal Volume PEEP Sodium 135 Potassium 3.4 L Chloride 97 L Carbon Dioxide 27 Anion Gap 14 BUN 12 Creatinine 0.7 Est GFR ( Amer) > 60 Est GFR (Non-Af Amer) > 60 POC Glucose (mg/dL) Random Glucose 166 H Serum Osmolality 296 Calcium 9.5 Total Bilirubin 0.4 AST 36 ALT 27 Alkaline Phosphatase 62 Total Protein 7.2 Albumin 4.1 Globulin 3.2 Albumin/Globulin Ratio 1.3 Vitamin B12 TSH 3rd Generation Arterial Blood Potassium Urine Color Urine Clarity Urine pH Ur Specific [place] Urine Protein Urine Glucose (UA) Urine Ketones Urine Blood Urine Nitrate Urine Bilirubin Urine Urobilinogen Ur Leukocyte Esterase Urine RBC (Auto) Urine Microscopic WBC Ur Squamous Epith Cells Urine Bacteria Blood Type Blood Type Confirm Antibody Screen BBK History Checked 10/27/17 10/27/17 10/27/17 05:22 06:04 11:39 WBC RBC Hgb Hct MCV MCH MCHC RDW Plt Count MPV Neut % (Auto) Lymph % (Auto) Bland % (Auto) Eos % (Auto) Baso % (Auto) Neut # (Auto) Lymph # (Auto) Bland # (Auto) Eos # (Auto) Baso # (Auto) Neutrophils % (Manual) Band Neutrophils % Lymphocytes % (Manual) Monocytes % (Manual) Platelet Estimate Large Platelets Hypochromasia (manual) Anisocytosis (manual) Macrocytosis (manual) Ovalocytes PT INR APTT pCO2 40 pO2 117 H HCO3 27.7 ABG pH 7.45 ABG Total CO2 29.0 H ABG O2 Saturation 99.7 H ABG Base Excess 3.5 H Jed Test Yes ABG Potassium 3.3 L A-a O2 Difference 261.0 Glucose 168 H Lactate 1.0 Vent Mode A/c Mechanical Rate 12 FiO2 60.0 Tidal Volume 450 PEEP 5 Sodium 134.0 Potassium Chloride 100.0 Carbon Dioxide Anion Gap BUN Creatinine Est GFR ( Amer) Est GFR (Non-Af Amer) POC Glucose (mg/dL) 157 H 128 H Random Glucose Serum Osmolality Calcium Total Bilirubin AST ALT Alkaline Phosphatase Total Protein Albumin Globulin Albumin/Globulin Ratio Vitamin B12 TSH 3rd Generation Arterial Blood Potassium 3.3 L Urine Color Urine Clarity Urine pH Ur Specific [place] Urine Protein Urine Glucose (UA) Urine Ketones Urine Blood Urine Nitrate Urine Bilirubin Urine Urobilinogen Ur Leukocyte Esterase Urine RBC (Auto) Urine Microscopic WBC Ur Squamous Epith Cells Urine Bacteria Blood Type Blood Type Confirm Antibody Screen BBK History Checked EKG/Cardiology Studies: Cardiology / EKG Studies 10/27/17 09:00 ELECTROCARDIOGRAM DAILY Comment: Mode Of Transportation: Reason For Exam: AMS Fingerstick Blood Sugar Results: 128 Review of Systems - Review of Systems Review of Systems: unable to assess because comatose status Assessment/Plan - Assessment and Plan (Free Text) Plan: R SDH ( nontraumatic) with R intraparenchymal Hemorrhage -As per Neurosurgery no surgical intervention recommended. Continue with medical management -HOB elevation for now. -c/w Mannitol -c/w Decadron -trial at Hyperventilation to PCO2 approx 28-30 -Neurochecks, Seizure precautions -Re-position ETT 3 cm upward; NGT gastric decompression. -Keep Systolic BP no higher than 140 -s/p 2 units of FFP -give 2 more units of FFP as per neuro -F/u repeat head CT as per neuro -we discussed with next on kin, Granddaughter: Genesis Barba, DNR status, she would like to speak with Patient's daughter and son before taking the final decision -neurology on consult. recs are appreciated -Head CT on admission reported R SDH ( nontraumatic) with R intraparenchymal Hemorrhage with local edema and midline shift, obliteration of 4th ventricle, and blood seen in left lateral ventricle. -Next of Kin : Genesis Barba , Hypertension -Labetalol 20 mg IVP Q6h PRN. Influenza infection -positive influenza test on admission -Oseltamivir 75 mg NG BID -isolation precautions Prophylaxis -Stress ulcer precautions : protonix 40 mg IVP daily. -DVT prophylaxis : SCDs. Right intraparenchymal hemorrhage. -Pressure ulcers precautions - Date & Time Date: 10/27/17 Time: 10:05 <Seb Nuñez - Last Filed: 10/27/17 18:28> CCU Subjective - Physician Review Subjective (Free Text): Attestation: Patient seen and examined at the bedside with Resident Dr. Melva Singletary; and I agree with her outline of plans and management documented above as discussed on AM rounds reflecting my review of all applicable clinical data, and participation in the care of the patient throughout the day in ICU; October. Patient has demonstrated decerebrate posturing on pain stimulation, but does exhibit vent triggering and breathing 12 on AC 12. Will discuss with Neuro regarding EEG. Family has rescinded their DNR they had requested after their discussion with Dr. Quintana this morning; they now state that they would like to further discuss this with other family members before making their decision more firmly.
[2017-10-28 04:54] LABS: ABG ALLEN TEST YES; ARTERIAL BLOOD GAS HCO3 28.8 mmol/L (21-28); ARTERIAL BLOOD GAS PCO2 35 mm/Hg (35-45); ARTERIAL BLOOD GAS PH 7.51 (7.35-7.45); ARTERIAL BLOOD GAS PO2 212 mm/Hg (80-100)
[2017-10-28] MEDS: Mannitol 12.5 gm/50 ml Inj IV SCH ×2 (05:34→12:03)
[2017-10-28 05:55] LABS: HEMOGLOBIN 9.9 g/dL (12.0-16.0); MEAN CELL VOLUME 93.8 fl (81.0-99.0); MEAN CORPUSCULAR HEMOGLOBIN 31.9 pg (27.0-31.0); RBC 3.12 Mil/uL (3.80-5.20); RED CELL DISTRIBUTION WIDTH 13.1 % (11.5-14.5); WHITE BLOOD COUNT 10.3 K/uL (4.8-10.8)
[2017-10-28 06:09] LABS: ALB/GLOB RATIO 1.2 (1.0-2.1); ALBUMIN 4.1 g/dL (3.5-5.0); ALT/SGPT 29 U/L (9-52); AST/SGOT 42 U/L (14-36); BLOOD UREA NITROGEN 21 mg/dl (7-17); CALCIUM 9.7 mg/dL (8.4-10.2); GFR AFRICAN-AMERICAN > 60; GFR NON-AFRICAN AMERICAN > 60
[2017-10-28] MEDS: Insulin Regular 100 units/ml SC SCH ×4 (09:01→23:00)
[2017-10-28] MEDS: levETIRAcetam 500 MG in Sodium Chloride 0.9% 100 ML IVPB SCH (09:03)
--- NOTE | 2017-10-28 09:57 | PN ---
DATE: 10/28/2017 SUBJECTIVE: The patient is seen and examined. Interim events noted. Consults noted and appreciated. The patient remains in Intensive Care Unit. not able to provide any intermittent history. Review of systems, neurology and neurosurgery interventions noted and appreciated. The patient remains almost in comatose state. PHYSICAL EXAMINATION: GENERAL: The patient is already intubated on mechanical ventilation via endotracheal tube. Tolerating current setting without any distress. VITAL SIGNS: Stable. Blood pressure is high, but it is permissive hypertension. HEART: S1 and S2, normal and regular. LUNGS: Good bilateral air exchange. ABDOMEN: Soft and nontender. EXTREMITIES: No edema, no calf swelling, no tenderness. No acute ischemia. CENTRAL NERVOUS SYSTEM: Shows . DIAGNOSTIC DATA: Available diagnostic data reviewed. Telemetry monitoring does not show significant arrhythmia. ASSESSMENT AND PLAN: Overall, the patient's general medical condition is hemodynamically stable. Long-term prognosis remains poor. Plan as ordered. Aftab Sargent MD
--- NOTE | 2017-10-28 11:25 | RAD ---
PROCEDURE: CHEST RADIOGRAPH, 1 VIEW HISTORY: endotracheal intubation/ mechanical ventilation COMPARISON: Comparison made with chest radiograph 10/27/2017 at 4:29 a.m.. Comparison also made with prior CT scan abdomen pelvis 04/04/2017 which imaged both lung bases. FINDINGS: In situ ETT, tip of which lies approximately 2.4 cm above eloy. NGT is present, the tip of which appears to terminate left parasagittal upper abdomen. LUNGS: Suspect minimal bibasilar atelectasis re- demonstrated is a small granuloma right lower lobe. PLEURA: No pneumothorax or pleural fluid seen. CARDIOVASCULAR: Normal. OSSEOUS STRUCTURES: No significant abnormalities. VISUALIZED UPPER ABDOMEN: Normal. OTHER FINDINGS: None. IMPRESSION: ETT and NGT as above. Mild bibasilar atelectasis. Small granuloma right lower lobe unchanged
--- NOTE | 2017-10-28 17:36 | CP.PCM.PN ---
Subjective - Date & Time of Evaluation Date of Evaluation: 10/28/17 Time of Evaluation: 15:30 - Subjective Subjective: [age] yr old woman with a large right sided intraparenchymal hemorrhage, and right subdural hemorrhage, who now has pinpoint pupils with decorticate posturing, and no brainstem reflexes. Patient has no seizures, and is not on sedation. About one week ago, patient was complaining of feeling ill, and had a headache, with stomach upset. She went to see her pmd, who confirmed she had flu, but by then, her headache had resolved. Yesterday night, she was brought to the hospital, and found to have large subdural with midline shift and mass effect and a subarachnoid hemorrhage in the right fronto-parietal region as well. Neurosurgery was called and felt that surgical intervention was not appropriate at this time. On exam: intubated, not sedated, pupils pinpoint, not reactive. no corneals, no gag, no pupillary reflex. no spontaneous movement noted. Decorticate posturing on sternal rub. +1 dtr ul and ll bl. Toes silent. There is no repeat CT head today. Objective - Vital Signs/Intake and Output Vital Signs (last 24 hours): Temp Pulse Resp BP Pulse Ox 99.0 F 62 12 150/88 100 10/28/17 16:00 10/28/17 16:00 10/28/17 16:00 10/28/17 16:00 10/28/17 16:00 Intake and Output: 10/28/17 10/28/17 06:59 18:59 Intake Total 116 Output Total 550 Balance -550 116 - Medications Medications: Current Medications Dexamethasone (Decadron Inj) 6 mg IV 0300,0900,1500,2100 [facility] Last Admin: 10/28/17 17:28 Dose: 6 mg Levetiracetam 500 mg/ Sodium (Chloride) 105 mls @ 210 mls/hr IVPB Q12 [facility] Last Admin: 10/28/17 09:03 Dose: 210 mls/hr Insulin Human Regular (Humulin R) 0 units SC ACCU-CHECK DENIZ PRN Reason: Protocol Last Admin: 10/28/17 17:25 Dose: Not Given Labetalol HCl (Trandate) 20 mg IVP Q6H PRN PRN Reason: Systolic Blood Pressure Mannitol (Mannitol) 25 gm IV Q8@0500,1300,2300 [facility] Last Admin: 10/28/17 12:03 Dose: 25 gm Oseltamivir Phosphate (Tamiflu Cap) 75 mg NG BID [facility] PRN Reason: Protocol Last Admin: 10/28/17 17:28 Dose: 75 mg Pantoprazole Sodium (Protonix Inj) 40 mg IVP DAILY [facility] Last Admin: 10/28/17 09:03 Dose: 40 mg - Labs Labs: 10/28/17 04:25 10/28/17 04:25 PT 11.3 Seconds (9.8-13.1) 10/27/17 05:15 INR 1.0 (0.9-1.2) 10/27/17 05:15 APTT 27.2 Seconds (25.6-37.1) 10/27/17 05:15 Assessment and Plan - Assessment and Plan (Free Text) Assessment: 82 yr old woman with large parenchymal bleed, hypertensive, vs. aneurysmal with poor prognosis, flu positive, found to have no brainstem reflexes. plan: 1. EEG on monday to determine cerebral function 2. Repeat CT head am.
[2017-10-29 05:22] LABS: ABG ALLEN TEST YES; ARTERIAL BLOOD GAS HCO3 28.7 mmol/L (21-28); ARTERIAL BLOOD GAS HEMOGLOBIN 10.6 g/dL (11.7-17.4); ARTERIAL BLOOD GAS O2 CAPACITY 14.9 mL/dL (16-24); ARTERIAL BLOOD GAS O2 CONTENT 14.8 ML/dL (15-23); ARTERIAL BLOOD GAS O2 SAT 99.3 % (95-98); ARTERIAL BLOOD GAS PCO2 36 mm/Hg (35-45); ARTERIAL BLOOD GAS PO2 115 mm/Hg (80-100); ARTERIAL BLOOD GAS TCO2 29.2 mmol/L (22-28)
[2017-10-29] MEDS: Insulin Regular 100 units/ml SC SCH ×4 (06:46→23:20)
[2017-10-29 07:01] LABS: HEMOGLOBIN 10.5 g/dL (12.0-16.0); MEAN CELL VOLUME 94.6 fl (81.0-99.0); MEAN CORPUSCULAR HEMOGLOBIN 31.3 pg (27.0-31.0); MEAN CORPUSCULAR HGB CONC 33.1 g/dL (33.0-37.0); RBC 3.36 Mil/uL (3.80-5.20); RED CELL DISTRIBUTION WIDTH 13.4 % (11.5-14.5); WHITE BLOOD COUNT 8.8 K/uL (4.8-10.8)
[2017-10-29] MEDS: Mannitol 12.5 gm/50 ml Inj IV SCH ×3 (07:05→23:21)
[2017-10-29 07:32] LABS: ALB/GLOB RATIO 1.1 (1.0-2.1); ALT/SGPT 33 U/L (9-52); AST/SGOT 37 U/L (14-36); BLOOD UREA NITROGEN 39 mg/dl (7-17); CALCIUM 9.2 mg/dL (8.4-10.2); GFR AFRICAN-AMERICAN > 60; GFR NON-AFRICAN AMERICAN > 60
[2017-10-29] MEDS: levETIRAcetam 500 MG in Sodium Chloride 0.9% 100 ML IVPB SCH ×2 (08:06→20:48)
--- NOTE | 2017-10-29 08:16 | PN ---
DATE: 10/29/2017 SUBJECTIVE: The patient is seen and examined. Interim events noted. Consults noted and appreciated. The patient remains in Intensive Care Unit, on ventilator, not able to provide informative history or review of system. PHYSICAL EXAMINATION: GENERAL: The patient is orally intubated. mechanical ventilation, tolerating current setting without any acute distress. VITAL SIGNS: Stable. HEART: S1 and S2, normal and regular. LUNGS: Good bilateral air exchange. GASTROINTESTINAL: Abdomen is soft and nontender. EXTREMITIES: No edema. No calf swelling and no tenderness. No acute ischemia. CENTRAL NERVOUS SYSTEM: Exam is essentially unchanged. The patient is practically remains comatose. DIAGNOSTIC DATA: Available diagnostic data reviewed. IMPRESSION AND PLAN: Overall, the patient's general medical condition is essentially same. Long-term prognosis remains poor. Plan as ordered. Aftab Sargent MD
--- NOTE | 2017-10-29 09:30 | CP.PCM.PN ---
Subjective - Date & Time of Evaluation Date of Evaluation: 10/29/17 Time of Evaluation: 09:28 - Subjective Subjective: Ms. Miramontes was seen and examined at the bedside in ICU. She remains on mechanical ventilator with GCS 3T, no corneal, and pupillaty response noted. She response to tactile stimuli with decelebrate posturing. She remains on droplet isolation for positive influenza. There was no untoward events overnight. Objective - Vital Signs/Intake and Output Vital Signs (last 24 hours): Temp Pulse Resp BP Pulse Ox 98.7 F 86 18 187/75 H 99 10/29/17 00:00 10/29/17 06:00 10/29/17 06:00 10/29/17 06:00 10/29/17 04:00 Intake and Output: 10/29/17 10/29/17 06:59 18:59 Intake Total 225 Output Total 400 Balance -175 - Medications Medications: Current Medications Dexamethasone (Decadron Inj) 6 mg IV 0300,0900,1500,2100 [facility] Last Admin: 10/29/17 08:05 Dose: 6 mg Levetiracetam 500 mg/ Sodium (Chloride) 105 mls @ 210 mls/hr IVPB Q12 [facility] Last Admin: 10/29/17 08:06 Dose: 210 mls/hr Insulin Human Regular (Humulin R) 0 units SC ACCU-CHECK DENIZ PRN Reason: Protocol Last Admin: 10/29/17 06:46 Dose: 1 u Labetalol HCl (Trandate) 20 mg IVP Q6H PRN PRN Reason: Systolic Blood Pressure Mannitol (Mannitol) 25 gm IV Q8@0500,1300,2300 [facility] Last Admin: 10/29/17 07:05 Dose: 25 gm Oseltamivir Phosphate (Tamiflu Cap) 75 mg NG BID [facility] PRN Reason: Protocol Last Admin: 10/29/17 08:08 Dose: 75 mg Pantoprazole Sodium (Protonix Inj) 40 mg IVP DAILY [facility] Last Admin: 10/29/17 08:07 Dose: 40 mg - Labs Labs: 10/29/17 06:00 10/29/17 06:00 PT 11.3 Seconds (9.8-13.1) 10/27/17 05:15 INR 1.0 (0.9-1.2) 10/27/17 05:15 APTT 27.2 Seconds (25.6-37.1) 10/27/17 05:15 - Constitutional Appears: No Acute Distress - Head Exam Head Exam: NORMAL INSPECTION - Neurological Exam Neuro motor strength exam: Left Upper Extremity: 0, Right Upper Extremity: 0, Left Lower Extremity: 0, Right Lower Extremity: 0 Additional comments: GC 3T Assessment and Plan (1) Intracranial hemorrhage Assessment & Plan: Case discussed with Dr. Quintana, continue all current medical management. Recommend EEG and brain flow study to evaluate brain activity. Recommend palliative management. Status: Acute
[2017-10-30 04:19] LABS: ABG ALLEN TEST YES; ARTERIAL BLOOD GAS HCO3 26.8 mmol/L (21-28); ARTERIAL BLOOD GAS HEMOGLOBIN 12.1 g/dL (11.7-17.4); ARTERIAL BLOOD GAS O2 CAPACITY 16.8 mL/dL (16-24); ARTERIAL BLOOD GAS O2 CONTENT 16.5 ML/dL (15-23); ARTERIAL BLOOD GAS O2 SAT 98.2 % (95-98); ARTERIAL BLOOD GAS PCO2 38 mm/Hg (35-45); ARTERIAL BLOOD GAS PH 7.45 (7.35-7.45); ARTERIAL BLOOD GAS PO2 92 mm/Hg (80-100); ARTERIAL BLOOD GAS TCO2 27.6 mmol/L (22-28)
[2017-10-30] MEDS: Mannitol 12.5 gm/50 ml Inj IV SCH ×3 (04:45→23:50)
[2017-10-30 05:30] LABS: ALB/GLOB RATIO 1.1 (1.0-2.1); ALBUMIN 3.9 g/dL (3.5-5.0); ALT/SGPT 86 U/L (9-52); AST/SGOT 101 U/L (14-36); BLOOD UREA NITROGEN 42 mg/dl (7-17); CALCIUM 9.1 mg/dL (8.4-10.2); GFR AFRICAN-AMERICAN > 60; GFR NON-AFRICAN AMERICAN > 60
[2017-10-30 06:06] LABS: HEMOGLOBIN 10.9 g/dL (12.0-16.0); MEAN CELL VOLUME 94.4 fl (81.0-99.0); MEAN CORPUSCULAR HEMOGLOBIN 32.5 pg (27.0-31.0); MEAN CORPUSCULAR HGB CONC 34.4 g/dL (33.0-37.0); RBC 3.35 Mil/uL (3.80-5.20); RED CELL DISTRIBUTION WIDTH 13.3 % (11.5-14.5); WHITE BLOOD COUNT 7.6 K/uL (4.8-10.8)
[2017-10-30] MEDS: Insulin Regular 100 units/ml SC SCH ×4 (06:38→22:07)
--- NOTE | 2017-10-30 08:00 | PN ---
DATE: 10/30/2017 SUBJECTIVE: The patient is seen and examined. Interim events noted. Consults noted and appreciated. The patient remains in Intensive Care Unit on ventilator, comatose and not able to provide informative history or review of systems. PHYSICAL EXAMINATION: GENERAL: The patient is already intubated on mechanical ventilation via endotracheal tube. Tolerating current oxygen setting without any distress. VITAL SIGNS: Stable. HEART: S1 and S2, normal and regular. LUNGS: Good bilateral air exchange. ABDOMEN: Soft and nontender. EXTREMITIES: No edema, no calf swelling, and no tenderness. No acute ischemia. CENTRAL NERVOUS SYSTEM: Exam is essentially unchanged. The patient is essentially comatose and long-term prognosis is poor for [employer] recovery. DIAGNOSTIC DATA: Available diagnostic data reviewed. Telemetry monitoring does not show any significant arrhythmia. ASSESSMENT AND PLAN: Overall the patient's general medical condition, hemodynamically stable, but long-term prognosis remains poor . Plan as ordered. Aftab Sargent MD
[2017-10-30] MEDS: levETIRAcetam 500 MG in Sodium Chloride 0.9% 100 ML IVPB SCH ×3 (08:34→22:06)
--- NOTE | 2017-10-30 08:50 | PN ---
PROCEDURE DATE: 10/29/2017 CRITICAL CARE PROGRESS NOTE The patient is in ICU bed 424. SUBJECTIVE: An 82-year-old female with hypertension, early dementia, admitted with moderate size right subdural hematoma and deep right parietooccipital intraparenchymal bleed associated with right hemispheric edema , remains intubated on mechanical ventilation. On AC 12, tidal volume 450, FiO2 of 60%, PEEP of 5, saturation 100%, peak airway pressure 19, end-tidal CO2 of 23, exhaled tidal volume 390, and observed rate 22. PHYSICAL EXAMINATION: VITAL SIGNS: Temperature 98.3, heart rate of 65, blood pressure 126/53, mean arterial pressure 77, oxygen saturation 100%. Intake 345. Output 1000. Negative balance 655. Weight 135 pounds. HEAD, EYES, EARS, NOSE AND THROAT: Pupils are 2 to 3 mm midline, nonreactive. No corneal or conjunctival reflex. Minimal gag reflex on deep suctioning. CHEST: Bilateral breath sounds. Clear to auscultation. HEART: Rhythm regular. S1, S2 normal. ABDOMEN: Bowel sounds present. Soft. EXTREMITIES: Dependent edema. No palpable cord. DP palpable, reduced in intensity. NEUROLOGIC: Pinky Coma Scale 3, unchanged. SKIN: Without rash. CURRENT MEDICATIONS: Include dexamethasone 6 mg IV q. 6 hours, Accu-Chek with regular insulin coverage, labetalol 20 mg IV q. 6 hours p.r.n., Keppra 500 mg IV q. 12 hours, Mannitol 25 g IV q. 8 hours, Tamiflu 75 mg b.i.d. to complete today, and Protonix 40 IV daily. LABORATORY DATA: WBC of 8.8, hemoglobin of 10.5, hematocrit of 31.8, and platelet count of 147. PT , INR 1, PTT 27.2. ABG; pH is 7.50, pCO2 of 36, pO2 of 150, saturation 99.3 on AC 12, tidal volume 450, FiO2 60%, PEEP of 5. SMA-7: Sodium of 147, potassium of 3.9, chloride of 107, CO2 of 27, blood urea nitrogen of 39, and creatinine of 0.8. Random glucose of 146. Serum osmolality 317. Urinalysis; nitrite positive. Serology influenza positive. Microbiology, urine culture positive for E. coli. Blood culture, no growth reported. IMPRESSION: 1. Neuro: comatose, unresponsive to verbal tactile or deep painful stimuli status post right subdural hematoma and deep right parietooccipital intraparenchymal bleed associated right hemispheric edema, on Decadron and Mannitol. Serum osmolality 317. Seen by Neurology. Follow up. Recommend EEG and brain flow study. 2. Pulmonary: Intubated for airway protection. No acute pneumonia. 3. Cardiac: Permissive hypertension. Blood pressure in the range of 114-126/53-57 now. 4. Infection: Urinary tract infection with Escherichia coli. Add Zosyn. Prerenal azotemia. Sodium borderline high. The patient on Decadron and Mannitol. 5. Gastrointestinal: Mildly elevated AST but stable. Continue gastric prophylaxis. Continue deep vein thrombosis prophylaxis with sequential compressive device. Anticoagulation on hold secondary to intracerebral hemorrhage. PROGNOSIS: Remains guarded. Alfred Pierre MD MTDD
--- NOTE | 2017-10-30 09:14 | CP.PCM.PN ---
Subjective - Date & Time of Evaluation Date of Evaluation: 10/30/17 Time of Evaluation: 09:12 - Subjective Subjective: Ms. Miramontes was seen and examined at the bedside in ICU. She remains on mechanical ventilator on PRVC mode and able to breath above the set respiration. Her pupils remains pinpoint with no reaction, no corneal reflex with gag reflex. She has decelebrate posturing with tactile stimuli. There was no untoward events overnight. Objective - Vital Signs/Intake and Output Vital Signs (last 24 hours): Temp Pulse Resp BP Pulse Ox 97.8 F 57 L 18 124/63 100 10/30/17 08:00 10/30/17 08:00 10/30/17 08:00 10/30/17 08:00 10/30/17 08:00 Intake and Output: 10/30/17 10/30/17 06:59 18:59 Intake Total 850 90 Output Total 675 100 Balance 175 -10 - Medications Medications: Current Medications Dexamethasone (Decadron Inj) 6 mg IV 0300,0900,1500,2100 [facility] Last Admin: 10/30/17 08:31 Dose: 6 mg Levetiracetam 500 mg/ Sodium (Chloride) 105 mls @ 210 mls/hr IVPB Q12 [facility] Last Admin: 10/30/17 08:34 Dose: 210 mls/hr Aztreonam 1 gm/ Sodium (Chloride) 50 mls @ 50 mls/hr IVPB Q8 [facility] PRN Reason: Protocol Last Admin: 10/30/17 08:32 Dose: 50 mls/hr Insulin Human Regular (Humulin R) 0 units SC ACCU-CHECK [facility] PRN Reason: Protocol Last Admin: 10/30/17 06:38 Dose: 1 u Labetalol HCl (Trandate) 20 mg IVP Q6H PRN PRN Reason: Systolic Blood Pressure Mannitol (Mannitol) 25 gm IV Q8@0500,1300,2300 [facility] Last Admin: 10/30/17 04:45 Dose: 25 gm Oseltamivir Phosphate (Tamiflu Cap) 75 mg NG BID [facility] PRN Reason: Protocol Last Admin: 10/30/17 08:36 Dose: 75 mg Pantoprazole Sodium (Protonix Inj) 40 mg IVP DAILY [facility] Last Admin: 10/30/17 08:31 Dose: 40 mg - Labs Labs: 10/30/17 04:50 10/30/17 04:50 PT 11.3 Seconds (9.8-13.1) 10/27/17 05:15 INR 1.0 (0.9-1.2) 10/27/17 05:15 APTT 27.2 Seconds (25.6-37.1) 10/27/17 05:15 - Constitutional Appears: No Acute Distress - Head Exam Head Exam: NORMAL INSPECTION - Neurological Exam Neuro motor strength exam: Left Upper Extremity: 0, Right Upper Extremity: 0, Left Lower Extremity: 0, Right Lower Extremity: 0 Additional comments: GCS- 4T Assessment and Plan (1) Intracranial hemorrhage Assessment & Plan: Case discussed with Dr. Mazariegos, continue all current medical regimen. Pending EEG. Please refer to primary physician regarding electrolytes imbalances. Recommend conservative management. Status: Acute
--- NOTE | 2017-10-30 09:21 | PN ---
CRITICAL CARE PROGRESS NOTE DATE: 10/28/2017 LOCATION: The patient in ICU, bed 424. TIME SPENT: 35 minutes. SUBJECTIVE: The patient seen and evaluated at the bedside. Past medical, surgical and social history reviewed. An 82-year-old female with hypertension on losartan and aspirin. Dementia, admitted through Emergency Room complaining of recent cough, body ache, vomiting, and progressive lethargy. On initial evaluation in ER with a CT showed moderate sized right subdural hematoma and deep right parietooccipital intraparenchymal bleed with associated right hemispheric edema and loss of fourth ventricle. The patient remains orally intubated on mechanical ventilation. On AC/PRBC rate 12, observed rate of 40, set tidal volume 450, observed tidal volume 470, PEEP 5, FiO2 60, saturating 100%, peak airway pressure 20, and end-tidal CO2 of 24. No sedation. PHYSICAL EXAMINATION: VITAL SIGNS: Temperature 99, heart rate 62 regular, blood pressure 150/88, pulse oxymetry 100%. No sedation. HEENT: Pupils pinpoint not reactive. No corneal and no gag reflex. No pupillary reflex. No spontaneous movement. No response_ sternal rub. Deep tendon reflex is 1+ upper and lower extremities bilaterally. CHEST: Bilateral breath sounds. Clear to auscultation. HEART: Rhythm regular. S1 and S2 normal intensity. No audible murmur. ABDOMEN: Bowel sounds present. Soft. EXTREMITIES: Dependent edema 1+. No calf tenderness. No palpable cord. SKIN: Without rash. CURRENT MEDICATIONS: Include Decadron 6 mg IV q.6 hours, Accu-Chek with regular insulin coverage, labetalol 20 mg IV q.6 p.r.n., Keppra 500 mg IV q.12 hours, mannitol 25 g IV q.8 hours, Tamiflu 75 mg b.i.d., and Protonix 40 mg IV daily. IMPRESSION: 1. Neuro. Large parenchymal bleed, hypertensive versus aneurysmal. Prognosis remains guarded. No brain stem reflexes on clinical examination. Awaiting EEG to asses cerebral function. Follow up CT scheduled in the morning. 2. Hematology: No leukocytosis. No platelet count, anemia of chronic disease, hemoglobin stable. ABG; pO2 and PCO2 with acceptable range on AC 12, 450, FiO2 60%. 3. Renal: Normal BUN and creatinine. 4. Endocrine: Blood sugar random less than 180 mg. 5. GI: No acute issues noted. Continue DVT and GI prophylaxis. Anticoagulation on hold secondary to bleeding. Prognosis remains guarded. Alfred Pierre MD MTDD
--- NOTE | 2017-10-30 11:29 | RAD ---
HISTORY: reevaluate/ Intubated COMPARISON: No prior. FINDINGS: In situ ETT, tip of which lies approximately 2.3 cm above eloy. In situ NGT, tip of which has not been included on this film though distal aspect does lie well below EG junction. LUNGS: Suspect minor passive/dependent type atelectasis both lung bases. Again noted is a small calcified granuloma right medial lower lung field PLEURA: No significant pleural effusion identified, no pneumothorax apparent. CARDIOVASCULAR: Normal. OSSEOUS STRUCTURES: No significant abnormalities. VISUALIZED UPPER ABDOMEN: Normal. OTHER FINDINGS: None. IMPRESSION: NGT and ETT as above. Mild passive atelectasis both lung bases.
--- NOTE | 2017-10-30 16:54 | NM ---
PROCEDURE: Brain flow study HISTORY: evaluate brain activity COMPARISON: 10/27/2017 CT head TECHNIQUE: 23.4 mCi technetium 99 M DTPA. She Adequacy of the study, bolus injection technique: Adequate for diagnostic purposes. FINDINGS: Activity is documented a in the superior sagittal sinus and transverse sinuses. Flow is also documented in the internal carotid artery. IMPRESSION: Activity in the internal carotid artery is bilaterally and superior sagittal sinuses noted. Accordingly, of brain has not been established by scintigraphic techniques.
[2017-10-30] MEDS: Aztreonam 1 GM in Sodium Chloride 0.9% 100 ML IVPB SCH (17:30)
[2017-10-31] MEDS: Aztreonam 1 GM in Sodium Chloride 0.9% 100 ML IVPB SCH ×3 (01:11→17:15)
[2017-10-31 04:13] LABS: ABG ALLEN TEST YES; ARTERIAL BLOOD GAS O2 SAT 99.3 % (95-98); ARTERIAL BLOOD GAS PCO2 34 mm/Hg (35-45); ARTERIAL BLOOD GAS PH 7.47 (7.35-7.45); ARTERIAL BLOOD GAS PO2 147 mm/Hg (80-100); ARTERIAL BLOOD GAS TCO2 25.7 mmol/L (22-28)
[2017-10-31] MEDS: Mannitol 12.5 gm/50 ml Inj IV SCH ×2 (05:46→12:48)
[2017-10-31 05:47] LABS: BLOOD UREA NITROGEN 41 mg/dl (7-17); CALCIUM 8.9 mg/dL (8.4-10.2); GFR AFRICAN-AMERICAN > 60; GFR NON-AFRICAN AMERICAN > 60
[2017-10-31 05:59] LABS: HEMOGLOBIN 10.3 g/dL (12.0-16.0); MEAN CORPUSCULAR HEMOGLOBIN 32.6 pg (27.0-31.0); MEAN CORPUSCULAR HGB CONC 34.3 g/dL (33.0-37.0); RBC 3.15 Mil/uL (3.80-5.20); RED CELL DISTRIBUTION WIDTH 13.3 % (11.5-14.5); WHITE BLOOD COUNT 7.1 K/uL (4.8-10.8)
--- NOTE | 2017-10-31 08:32 | PN ---
DATE: 10/30/2017 CRITICAL CARE PROGRESS NOTE LOCATION: The patient in ICU, bed 424. TIME SPENT: 35 minutes. The patient is seen and evaluated at the bedside. Past medical, surgical and social history reviewed. SUBJECTIVE: An 82-year-old female with hypertension, early dementia admitted with moderate-sized right subdural hematoma and deep right occipital intraparenchymal bleed associated with right hemispheric edema, remains intubated on mechanical ventilation. AC 12, tidal volume of 400, FiO2 60%, PEEP of 5, observed rate 22, exhaled tidal volume 380, minute ventilation 8.3, saturating 100%, peak airway pressure 12, end-tidal CO2 of 23. PHYSICAL EXAMINATION VITAL SIGNS: Temperature 97.8, heart rate 74, blood pressure 141/80, mean arterial pressure 100 and saturation 100. Intake 1440, output 1575. Negative balance of 135. HEENT: Pupils are 2-3 mm, poorly nonreactive. No corneal or conjunctival reflex. LUNGS: Bilateral breath sounds. Clear to auscultation anteriorly and laterally. HEART: Rhythm regular. S1 and S2 normal. ABDOMEN: Bowel sounds present. Soft. EXTREMITIES: No palpable cord. Traced dependent edema. DP palpable. Reduced in intensity. NEUROLOGIC: Pinky Coma Scale 3. Flaccid extremities. CURRENT MEDICATIONS: Include aztreonam 1 g IV q. 8, Decadron 6 mg q. 8, mannitol 25 g IV q. 8 hours, labetalol 20 mg IV q. 6 p.r.n., Keppra 500 mg IV q. 12, Tamiflu 75 mg twice daily for 5 days to be completed, and Protonix 40 IV daily. LABORATORY DATA: WBC 7.6, hemoglobin 10.9, hematocrit 31.6 and platelet count 153. PT 11.5, INR 1, PTT 27.2. ABG: pH 7.45, pCO2 38, pO2 92, oxygen saturation 98.2% on AC 12, , 60%, PEEP of 5. SMA-7, sodium 151, potassium 4.1, chloride 113, CO2 of 26, blood urea nitrogen 42, creatinine 0.8. AST 101, ALT 86. Calcium 9.1. Urinalysis, nitrite positive, bilirubin negative, urine bacteria many. Serology influenza A and B positive. Microbiology, urine culture E. coli. Chest x-ray: NGT and endotracheal tube in place. Passive atelectasis at both lung bases. CT head on 10/27/2017, right frontal parietal subdural hematoma. Effacement of the right cortical sulci as well as proximally 1.4 cm, right to left midline shift, large high right frontal parietal parenchymal hemorrhage with surrounding edema similar in size in appearance. IMPRESSION: 1. Neurologic: Comatose, remains unresponsive to verbal tactile or deep painful stimuli status post right subdural hematoma and deep right parietal occipital intraparenchymal bleed with surrounding edema. Continue Decadron and mannitol as recommend by Neurology consult. Serum osmolality yesterday 370. Awaiting electroencephalogram and brain flow study. 2. Pulmonary: Intubated for airway protection, bibasilar atelectasis, keep head of bed 30 degrees up. 3. Cardiac: Blood pressure controlled. 4. Infection: Urinary tract infection with Escherichia coli, currently on aztreonam secondary to penicillin allergy. 5. Gastrointestinal: Mildly elevated AST. Remains stable. 6. Continue gastrointestinal prophylaxis. 7. Continue deep venous prophylaxis with sequential compressive device. Anticoagulation on hold secondary to intracerebral hemorrhage. Prognosis remains guarded. Awaiting for followup electroencephalogram and brain flow study. Worktype changed from operative report to progress note. Alfred Pierre MD
[2017-10-31] MEDS: Insulin Regular 100 units/ml SC SCH ×4 (09:08→22:32)
[2017-10-31] MEDS: levETIRAcetam 500 MG in Sodium Chloride 0.9% 100 ML IVPB SCH ×2 (09:09→21:09)
--- NOTE | 2017-10-31 11:09 | RAD ---
HISTORY: INTUBATION COMPARISON: Chest radiograph dated 10/30/2017 FINDINGS: LUNGS: Right lower lobe calcified granuloma redemonstrated. No active pulmonary disease. PLEURA: Stable elevation of the left hemidiaphragm. No significant pleural effusion identified, no pneumothorax apparent. CARDIOVASCULAR: Atherosclerotic aortic calcifications. Cardiomediastinal silhouette within normal limits. OSSEOUS STRUCTURES: Unchanged. VISUALIZED UPPER ABDOMEN: Normal. OTHER FINDINGS: Endotracheal and enteric tubes, unchanged. IMPRESSION: No significant interval change.
--- NOTE | 2017-10-31 11:44 | CP.CCUPN ---
<Lisa Singletary - Last Filed: 10/31/17 15:40> CCU Subjective - Physician Review Subjective (Free Text): 10/31/17 82F with PMH: HTN, on Losartan, ASA; mild Dementia: admitted via ER after family c/o recent cough, body aches, vomiting and progressive lethargy. Initial eval in ER with CT brain showed moderate size R SDH and deep R parietal- occipital intraparenchymal bleed; with associated R hemispheric edema and loss of 4th ventricle. Patient orally intubated in ED after sedation with Succinylcholine and Etomidate. Patient seen and examined at bedside with endoscopic technician attending. Patient still in deep coma, pinpoint pupils with no reaction, no corneal reflex , no gag reflex. Patient is intubated. On PRVC: 12, 450, 5, 60 % I&O reviewed Critical Care Time Spent (in minutes): 45 CCU Objective - Vital Signs / Intake & Output Vital Signs (Last 4 hours): Vital Signs Temp Pulse Resp BP Pulse Ox 10/31/17 10:00 72 27 H 118/49 L 100 10/31/17 08:28 98.2 F 60 21 157/73 H 97 Intake and Output (Last 8hrs): Intake & Output 10/30/17 10/31/17 10/31/17 22:59 06:59 14:59 Intake Total 515 870 420 Output Total 400 700 200 Balance 115 170 220 Intake: IV 100 200 Intake, Piggyback 100 300 10 Oral 90 300 Tube Feeding 225 270 180 Free Water Flush 30 Output: Urine 400 700 200 Urethral (Cano) 400 700 200 - Physical Exam Head: Positive for: Atraumatic, Normocephalic Pupils: Positive for: Non-Reactive (2 mm size, midline position), Pinpoint, Other (no corneal reflexes) Conjunctiva: Negative for: Icteric Mouth: Positive for: Moist Mucous Membranes Neck: Positive for: Normal Range of Motion. Negative for: JVD Respiratory/Chest: Positive for: Clear to Auscultation. Negative for: Respiratory Distress, Wheezes, Rales, Rhonchi Cardiovascular: Positive for: Regular Rate and Rhythm, Normal S1, S2. Negative for: Murmurs, Rub Abdomen: Positive for: Normal Bowel Sounds. Negative for: Tenderness, Distention, Mass/Organomegaly Lower Extremity: Positive for: Edema, NORMAL PULSES. Negative for: CALF TENDERNESS, Cyanosis Neurological: Positive for: Other (GCS = 3T) Skin: Positive for: Warm, Dry, Normal Color. Negative for: Rashes Psychiatric: Positive for: Other (Comatose) - Medications Active Medications: Active Medications Generic Name Dose Route Start Last Admin Trade Name Freq PRN Reason Stop Dose Admin Dexamethasone 6 mg 10/28/17 22:00 10/31/17 09:04 Decadron Inj IV 6 mg 0300,0900,1500,2100 DENIZ Administration Levetiracetam 500 mg/ Sodium 105 mls @ 210 mls/hr 10/26/17 21:00 10/31/17 09: 09 Chloride IVPB 210 mls/hr Q12 DENIZ Administration Aztreonam 1 gm/ Sodium 100 mls @ 100 mls/hr 10/30/17 17:00 10/31/17 09:03 Chloride IVPB 100 mls/hr Q8 DENIZ Administration Protocol Insulin Human Regular 0 units 10/26/17 23:00 10/31/17 09:08 Humulin R SC 2 u ACCU-CHECK DENIZ Administration Protocol Labetalol HCl 20 mg 10/26/17 17:53 Trandate IVP Q6H PRN Systolic Blood Pressure Mannitol 25 gm 10/27/17 05:00 10/31/17 05:46 Mannitol IV 25 gm Q8@0500,1300,2300 DENIZ Administration Oseltamivir Phosphate 75 mg 10/26/17 18:00 10/31/17 09:11 Tamiflu Cap NG 75 mg BID DENIZ Administration Protocol Pantoprazole Sodium 40 mg 10/26/17 17:45 10/31/17 09:11 Protonix Inj IVP 40 mg DAILY DENIZ Administration - Patient Studies Lab Studies: Microbiology Studies 10/26/17 14:34 Blood Culture - Preliminary Blood NO GROWTH AFTER 4 DAYS Lab Studies 10/31/17 10/31/17 10/31/17 Range/Units 11:11 05:10 05:10 WBC 7.1 (4.8-10.8) K/uL RBC 3.15 L (3.80-5.20) Mil/uL Hgb 10.3 L (12.0-16.0) g/dL Hct 29.9 L (34.0-47.0) % MCV 95.0 (81.0-99.0) fl MCH 32.6 H (27.0-31.0) pg MCHC 34.3 (33.0-37.0) g/dL RDW 13.3 (11.5-14.5) % Plt Count 142 (130-400) K/uL pCO2 (35-45) mm/Hg pO2 (80-100) mm/Hg HCO3 (21-28) mmol/L ABG pH (7.35-7.45) ABG Total CO2 (22-28) mmol/L ABG O2 Saturation (95-98) % ABG Base Excess (-2.0-3.0) mmol/L Jed Test ABG Potassium (3.6-5.2) mmol/L A-a O2 Difference mm/Hg Sodium 154 H (132-148) mmol/L Chloride 117 H (98-107) mmol/L Glucose (65-105) mg/dL Lactate (0.7-2.1) mmol/L Vent Mode Mechanical Rate FiO2 % Tidal Volume PEEP Potassium 4.1 (3.6-5.0) MMOL/L Carbon Dioxide 24 (22-30) mmol/L Anion Gap 17 (10-20) BUN 41 H (7-17) mg/dl Creatinine 0.7 (0.7-1.2) mg/dl Est GFR ( Amer) > 60 Est GFR (Non-Af Amer) > 60 POC Glucose (mg/dL) 237 H (65-110) mg/dL Random Glucose 267 H (65-105) mg/dL Calcium 8.9 (8.4-10.2) mg/dL Arterial Blood Potassium (3.6-5.2) mmol/L 10/31/17 10/31/17 10/30/17 Range/Units 04:37 03:52 21:50 WBC (4.8-10.8) K/uL RBC (3.80-5.20) Mil/uL Hgb (12.0-16.0) g/dL Hct (34.0-47.0) % MCV (81.0-99.0) fl MCH (27.0-31.0) pg MCHC (33.0-37.0) g/dL RDW (11.5-14.5) % Plt Count (130-400) K/uL pCO2 34 L (35-45) mm/Hg pO2 147 H (80-100) mm/Hg HCO3 26.0 (21-28) mmol/L ABG pH 7.47 H (7.35-7.45) ABG Total CO2 25.7 (22-28) mmol/L ABG O2 Saturation 99.3 H (95-98) % ABG Base Excess 1.3 (-2.0-3.0) mmol/L Jed Test Yes ABG Potassium 4.0 (3.6-5.2) mmol/L A-a O2 Difference 238.0 mm/Hg Sodium 150.0 H (132-148) mmol/L Chloride 117.0 H (98-107) mmol/L Glucose 261 H (65-105) mg/dL Lactate 2.7 H (0.7-2.1) mmol/L Vent Mode A/c Mechanical Rate 12 FiO2 60.0 % Tidal Volume 450 PEEP 5 Potassium (3.6-5.0) MMOL/L Carbon Dioxide (22-30) mmol/L Anion Gap (10-20) BUN (7-17) mg/dl Creatinine (0.7-1.2) mg/dl Est GFR ( Amer) Est GFR (Non-Af Amer) POC Glucose (mg/dL) 249 H 183 H (65-110) mg/dL Random Glucose (65-105) mg/dL Calcium (8.4-10.2) mg/dL Arterial Blood Potassium 4.0 (3.6-5.2) mmol/L 10/30/17 10/30/17 Range/Units 18:09 12:04 WBC (4.8-10.8) K/uL RBC (3.80-5.20) Mil/uL Hgb (12.0-16.0) g/dL Hct (34.0-47.0) % MCV (81.0-99.0) fl MCH (27.0-31.0) pg MCHC (33.0-37.0) g/dL RDW (11.5-14.5) % Plt Count (130-400) K/uL pCO2 (35-45) mm/Hg pO2 (80-100) mm/Hg HCO3 (21-28) mmol/L ABG pH (7.35-7.45) ABG Total CO2 (22-28) mmol/L ABG O2 Saturation (95-98) % ABG Base Excess (-2.0-3.0) mmol/L Jed Test ABG Potassium (3.6-5.2) mmol/L A-a O2 Difference mm/Hg Sodium (132-148) mmol/L Chloride (98-107) mmol/L Glucose (65-105) mg/dL Lactate (0.7-2.1) mmol/L Vent Mode Mechanical Rate FiO2 % Tidal Volume PEEP Potassium (3.6-5.0) MMOL/L Carbon Dioxide (22-30) mmol/L Anion Gap (10-20) BUN (7-17) mg/dl Creatinine (0.7-1.2) mg/dl Est GFR ( Amer) Est GFR (Non-Af Amer) POC Glucose (mg/dL) 204 H 218 H (65-110) mg/dL Random Glucose (65-105) mg/dL Calcium (8.4-10.2) mg/dL Arterial Blood Potassium (3.6-5.2) mmol/L Laboratory Results - last 24 hr 10/30/17 10/30/17 10/30/17 12:04 18:09 21:50 WBC RBC Hgb Hct MCV MCH MCHC RDW Plt Count pCO2 pO2 HCO3 ABG pH ABG Total CO2 ABG O2 Saturation ABG Base Excess Jed Test ABG Potassium A-a O2 Difference Sodium Chloride Glucose Lactate Vent Mode Mechanical Rate FiO2 Tidal Volume PEEP Potassium Carbon Dioxide Anion Gap BUN Creatinine Est GFR ( Amer) Est GFR (Non-Af Amer) POC Glucose (mg/dL) 218 H 204 H 183 H Random Glucose Calcium Arterial Blood Potassium 10/31/17 10/31/17 10/31/17 03:52 04:37 05:10 WBC 7.1 RBC 3.15 L Hgb 10.3 L Hct 29.9 L MCV 95.0 MCH 32.6 H MCHC 34.3 RDW 13.3 Plt Count 142 pCO2 34 L pO2 147 H HCO3 26.0 ABG pH 7.47 H ABG Total CO2 25.7 ABG O2 Saturation 99.3 H ABG Base Excess 1.3 Jed Test Yes ABG Potassium 4.0 A-a O2 Difference 238.0 Sodium 150.0 H Chloride 117.0 H Glucose 261 H Lactate 2.7 H Vent Mode A/c Mechanical Rate 12 FiO2 60.0 Tidal Volume 450 PEEP 5 Potassium Carbon Dioxide Anion Gap BUN Creatinine Est GFR ( Amer) Est GFR (Non-Af Amer) POC Glucose (mg/dL) 249 H Random Glucose Calcium Arterial Blood Potassium 4.0 10/31/17 10/31/17 05:10 11:11 WBC RBC Hgb Hct MCV MCH MCHC RDW Plt Count pCO2 pO2 HCO3 ABG pH ABG Total CO2 ABG O2 Saturation ABG Base Excess Jed Test ABG Potassium A-a O2 Difference Sodium 154 H Chloride 117 H Glucose Lactate Vent Mode Mechanical Rate FiO2 Tidal Volume PEEP Potassium 4.1 Carbon Dioxide 24 Anion Gap 17 BUN 41 H Creatinine 0.7 Est GFR ( Amer) > 60 Est GFR (Non-Af Amer) > 60 POC Glucose (mg/dL) 237 H Random Glucose 267 H Calcium 8.9 Arterial Blood Potassium Fingerstick Blood Sugar Results: 249 Review of Systems - Review of Systems Review of Systems: unable to assess because deep coma Assessment/Plan - Assessment and Plan (Free Text) Plan: R SDH ( nontraumatic) with R intraparenchymal Hemorrhage -As per Neurosurgery no surgical intervention recommended. Continue with medical management -HOB elevation for now. -c/w Mannitol -c/w Decadron -trial at Hyperventilation to PCO2 approx 28-30 -Neurochecks, Seizure precautions -Re-position ETT 3 cm upward; NGT gastric decompression. -Keep Systolic BP no higher than 140 -Pending EEG results by neuro -s/p 4 units of FFP - repeated head CT on 10/27/17 reported as similar appearances of right subdural and intraparenchymal hemorrhages with midline shif. No acute findings. -will discuss with next on kin, Granddaughter: Genesis Barba, DNR status. -neurology on consult. recs are appreciated -Head CT on admission reported R SDH ( nontraumatic) with R intraparenchymal Hemorrhage with local edema and midline shift, obliteration of 4th ventricle, and blood seen in left lateral ventricle. -Next of Kin : Genesis Barba , Hypertension -Labetalol 20 mg IVP Q6h PRN. Influenza infection -positive influenza test on admission -Oseltamivir 75 mg NG BID -isolation precautions Prophylaxis -Stress ulcer precautions : protonix 40 mg IVP daily. -DVT prophylaxis : SCDs. Right intraparenchymal hemorrhage. -Pressure ulcers precautions - Date & Time Date: 10/31/17 Time: 08:55 <Christian Hernandez - Last Filed: 10/31/17 16:59> CCU Objective - Vital Signs / Intake & Output Vital Signs (Last 4 hours): Vital Signs Temp Pulse Resp BP Pulse Ox 10/31/17 16:06 102.0 F H 10/31/17 16:00 102 F H 91 H 137/55 L 97 10/31/17 14:00 87 26 H 137/55 L 100 10/31/17 13:32 100.4 F H 70 24 130/68 99 Intake and Output (Last 8hrs): Intake & Output 10/31/17 10/31/17 10/31/17 06:59 14:59 22:59 Intake Total 870 700 150 Output Total 700 400 100 Balance 170 300 50 Intake: IV 300 Intake, Piggyback 300 10 Oral 300 90 Tube Feeding 270 360 60 Free Water Flush 30 Output: Urine 700 400 100 Urethral (Cano) 700 400 100 - Medications Active Medications: Active Medications Generic Name Dose Route Start Last Admin Trade Name Freq PRN Reason Stop Dose Admin Acetaminophen 650 mg 10/31/17 15:42 10/31/17 16:06 Tylenol 650mg/20.3ml Solution Ud PO 650 mg Q6 PRN Administration Temperature Dexamethasone 6 mg 10/28/17 22:00 10/31/17 15:25 Decadron Inj IV 6 mg 0300,0900,1500,2100 DENIZ Administration Levetiracetam 500 mg/ Sodium 105 mls @ 210 mls/hr 10/26/17 21:00 10/31/17 09: 09 Chloride IVPB 210 mls/hr Q12 DENIZ Administration Aztreonam 1 gm/ Sodium 100 mls @ 100 mls/hr 10/30/17 17:00 10/31/17 09:03 Chloride IVPB 100 mls/hr Q8 DENIZ Administration Protocol Insulin Human Regular 0 units 10/26/17 23:00 10/31/17 12:47 Humulin R SC 2 u ACCU-CHECK DENIZ Administration Protocol Labetalol HCl 20 mg 10/26/17 17:53 Trandate IVP Q6H PRN Systolic Blood Pressure Mannitol 25 gm 10/27/17 05:00 10/31/17 12:48 Mannitol IV 25 gm Q8@0500,1300,2300 DENIZ Administration Oseltamivir Phosphate 75 mg 10/26/17 18:00 10/31/17 09:11 Tamiflu Cap NG 75 mg BID DENIZ Administration Protocol Pantoprazole Sodium 40 mg 10/26/17 17:45 10/31/17 09:11 Protonix Inj IVP 40 mg DAILY DENIZ Administration - Patient Studies Lab Studies: Microbiology Studies 10/26/17 14:34 Blood Culture - Final Blood NO GROWTH AFTER 5 DAYS Gram Stain - Final TEST NOT PERFORMED Lab Studies 10/31/17 10/31/17 10/31/17 Range/Units 16:20 11:11 05:10 WBC (4.8-10.8) K/uL RBC (3.80-5.20) Mil/uL Hgb (12.0-16.0) g/dL Hct (34.0-47.0) % MCV (81.0-99.0) fl MCH (27.0-31.0) pg MCHC (33.0-37.0) g/dL RDW (11.5-14.5) % Plt Count (130-400) K/uL pCO2 (35-45) mm/Hg pO2 (80-100) mm/Hg HCO3 (21-28) mmol/L ABG pH (7.35-7.45) ABG Total CO2 (22-28) mmol/L ABG O2 Saturation (95-98) % ABG Base Excess (-2.0-3.0) mmol/L Jed Test ABG Potassium (3.6-5.2) mmol/L A-a O2 Difference mm/Hg Sodium 154 H (132-148) mmol/L Chloride 117 H (98-107) mmol/L Glucose (65-105) mg/dL Lactate (0.7-2.1) mmol/L Vent Mode Mechanical Rate FiO2 % Tidal Volume PEEP Potassium 4.1 (3.6-5.0) MMOL/L Carbon Dioxide 24 (22-30) mmol/L Anion Gap 17 (10-20) BUN 41 H (7-17) mg/dl Creatinine 0.7 (0.7-1.2) mg/dl Est GFR ( Amer) > 60 Est GFR (Non-Af Amer) > 60 POC Glucose (mg/dL) 211 H 237 H (65-110) mg/dL Random Glucose 267 H (65-105) mg/dL Calcium 8.9 (8.4-10.2) mg/dL Arterial Blood Potassium (3.6-5.2) mmol/L 10/31/17 10/31/17 10/31/17 Range/Units 05:10 04:37 03:52 WBC 7.1 (4.8-10.8) K/uL RBC 3.15 L (3.80-5.20) Mil/uL Hgb 10.3 L (12.0-16.0) g/dL Hct 29.9 L (34.0-47.0) % MCV 95.0 (81.0-99.0) fl MCH 32.6 H (27.0-31.0) pg MCHC 34.3 (33.0-37.0) g/dL RDW 13.3 (11.5-14.5) % Plt Count 142 (130-400) K/uL pCO2 34 L (35-45) mm/Hg pO2 147 H (80-100) mm/Hg HCO3 26.0 (21-28) mmol/L ABG pH 7.47 H (7.35-7.45) ABG Total CO2 25.7 (22-28) mmol/L ABG O2 Saturation 99.3 H (95-98) % ABG Base Excess 1.3 (-2.0-3.0) mmol/L Jed Test Yes ABG Potassium 4.0 (3.6-5.2) mmol/L A-a O2 Difference 238.0 mm/Hg Sodium 150.0 H (132-148) mmol/L Chloride 117.0 H (98-107) mmol/L Glucose 261 H (65-105) mg/dL Lactate 2.7 H (0.7-2.1) mmol/L Vent Mode A/c Mechanical Rate 12 FiO2 60.0 % Tidal Volume 450 PEEP 5 Potassium (3.6-5.0) MMOL/L Carbon Dioxide (22-30) mmol/L Anion Gap (10-20) BUN (7-17) mg/dl Creatinine (0.7-1.2) mg/dl Est GFR ( Amer) Est GFR (Non-Af Amer) POC Glucose (mg/dL) 249 H (65-110) mg/dL Random Glucose (65-105) mg/dL Calcium (8.4-10.2) mg/dL Arterial Blood Potassium 4.0 (3.6-5.2) mmol/L 10/30/17 10/30/17 Range/Units 21:50 18:09 WBC (4.8-10.8) K/uL RBC (3.80-5.20) Mil/uL Hgb (12.0-16.0) g/dL Hct (34.0-47.0) % MCV (81.0-99.0) fl MCH (27.0-31.0) pg MCHC (33.0-37.0) g/dL RDW (11.5-14.5) % Plt Count (130-400) K/uL pCO2 (35-45) mm/Hg pO2 (80-100) mm/Hg HCO3 (21-28) mmol/L ABG pH (7.35-7.45) ABG Total CO2 (22-28) mmol/L ABG O2 Saturation (95-98) % ABG Base Excess (-2.0-3.0) mmol/L Jed Test ABG Potassium (3.6-5.2) mmol/L A-a O2 Difference mm/Hg Sodium (132-148) mmol/L Chloride (98-107) mmol/L Glucose (65-105) mg/dL Lactate (0.7-2.1) mmol/L Vent Mode Mechanical Rate FiO2 % Tidal Volume PEEP Potassium (3.6-5.0) MMOL/L Carbon Dioxide (22-30) mmol/L Anion Gap (10-20) BUN (7-17) mg/dl Creatinine (0.7-1.2) mg/dl Est GFR ( Amer) Est GFR (Non-Af Amer) POC Glucose (mg/dL) 183 H 204 H (65-110) mg/dL Random Glucose (65-105) mg/dL Calcium (8.4-10.2) mg/dL Arterial Blood Potassium (3.6-5.2) mmol/L Laboratory Results - last 24 hr 10/30/17 10/30/17 10/31/17 18:09 21:50 03:52 WBC RBC Hgb Hct MCV MCH MCHC RDW Plt Count pCO2 34 L pO2 147 H HCO3 26.0 ABG pH 7.47 H ABG Total CO2 25.7 ABG O2 Saturation 99.3 H ABG Base Excess 1.3 Jed Test Yes ABG Potassium 4.0 A-a O2 Difference 238.0 Sodium 150.0 H Chloride 117.0 H Glucose 261 H Lactate 2.7 H Vent Mode A/c Mechanical Rate 12 FiO2 60.0 Tidal Volume 450 PEEP 5 Potassium Carbon Dioxide Anion Gap BUN Creatinine Est GFR ( Amer) Est GFR (Non-Af Amer) POC Glucose (mg/dL) 204 H 183 H Random Glucose Calcium Arterial Blood Potassium 4.0 10/31/17 10/31/17 10/31/17 04:37 05:10 05:10 WBC 7.1 RBC 3.15 L Hgb 10.3 L Hct 29.9 L MCV 95.0 MCH 32.6 H MCHC 34.3 RDW 13.3 Plt Count 142 pCO2 pO2 HCO3 ABG pH ABG Total CO2 ABG O2 Saturation ABG Base Excess Jed Test ABG Potassium A-a O2 Difference Sodium 154 H Chloride 117 H Glucose Lactate Vent Mode Mechanical Rate FiO2 Tidal Volume PEEP Potassium 4.1 Carbon Dioxide 24 Anion Gap 17 BUN 41 H Creatinine 0.7 Est GFR ( Amer) > 60 Est GFR (Non-Af Amer) > 60 POC Glucose (mg/dL) 249 H Random Glucose 267 H Calcium 8.9 Arterial Blood Potassium 10/31/17 10/31/17 11:11 16:20 WBC RBC Hgb Hct MCV MCH MCHC RDW Plt Count pCO2 pO2 HCO3 ABG pH ABG Total CO2 ABG O2 Saturation ABG Base Excess Jed Test ABG Potassium A-a O2 Difference Sodium Chloride Glucose Lactate Vent Mode Mechanical Rate FiO2 Tidal Volume PEEP Potassium Carbon Dioxide Anion Gap BUN Creatinine Est GFR ( Amer) Est GFR (Non-Af Amer) POC Glucose (mg/dL) 237 H 211 H Random Glucose Calcium Arterial Blood Potassium Assessment/Plan (1) Intracranial hemorrhage Current Visit: Yes Status: Acute Attending/Attestation - Attestation I have personally seen and examined this patient.: Yes I have fully participated in the care of the patient.: Yes I have reviewed all pertinent clinical information: Yes Notes (Text): 10/31/17 16:41 I have seen and examined the patient. Medical records, lab studies, and imaging were reviewed by me and a management plan was formulated on multidisciplinary rounds with resident Dr. Singletary. I agree with their above documented assessment and plan. Spoke with family member, granddaughter Marisa. I made clear that the patient' s hope for meaningful recovery is not possible given the level of her diffuse brain injury from her SDH and IPH and EEG findings. She expressed the understanding of the gravity of her grandmother's clinical situation and is considering comfort care. Critical Care Time 35 minutes. Multi-disciplinary rounds were performed with house staff, nursing, speech therapy, respiratory therapy, pharmacy and nutrition with integrated input from the primary team/attending and other consulting services. The documented time is cumulative and includes review of patient data/exams/labs/chart review and examination of the patient on rounds and throughout the day; time is exclusive of any procedures or teaching time. 10/31/17 16:58
--- NOTE | 2017-10-31 12:48 | PN ---
DATE: 10/31/2017 SUBJECTIVE: The patient is seen and examined. Interim events noted. Multiple consults noted and appreciated. Case discussed with Construction Job Cost Estimator. The patient remains in Intensive Care Unit on ventilator, not able to provide informative history or review of systems. Condition discussed with family at bedside. REVIEW OF SYSTEMS: Not available. PHYSICAL EXAMINATION: GENERAL: The patient is already intubated on mechanical ventilation via endotracheal tube. Tolerating current setting without any distress. VITAL SIGNS: Stable. HEART: S1 and S2, normal and regular. LUNGS: Good bilateral air exchange. ABDOMEN: Soft and nontender. No organomegaly. No fluid. Bowel sounds are plus and normal. EXTREMITIES: No calf swelling, no tenderness. No acute ischemia. CENTRAL NERVOUS SYSTEM: Exam is essentially unchanged. The patient remains comatose. DIAGNOSTIC DATA: Available diagnostic data reviewed. Telemetry monitoring does not show any significant arrhythmia. PLAN: Overall, the patient's general medical condition is essentially unchanged. Long-term functional prognosis remains poor. Plan as ordered. Aftab Sargent MD
--- NOTE | 2017-10-31 15:00 | PCM.EEG ---
Electroencephalogram Report - Electroencephalogram Report Procedure Date: 10/30/17 Interpretation: Indication: ICH. Medications were reviewed. Technical: This is a digitally recorded electroencephalogram. The international 10-20 electrode placement system is used for scalp electrode placement. Eighteen channels of scalp EEG are recorded Another channel was used for for ECG. The data are stored digitally and reviewed in reformatted montages for optimal display. Diffuse Abnormality: No well formed alpha activity was seen. Mixed diffuse theta and delta activity was seen. Markedly suppressed EEG activity was observed. Impression: This EEG is abnormal. Diffuse slowing is seen, suggestive of a diffuse abnormality of the brain. This finding is nonspecific, and can be seen in a diffuse or multifocal abnormality of the brain. Clinical correlation is needed.
[2017-10-31] MEDS: Acetaminophen 650mg/20.3ml solution UD PO PRN ×2 (16:06→22:40)
[2017-11-01] MEDS: Mannitol 12.5 gm/50 ml Inj IV SCH ×5 (00:36→23:50)
[2017-11-01] MEDS: Aztreonam 1 GM in Sodium Chloride 0.9% 100 ML IVPB SCH ×3 (02:03→17:48)
[2017-11-01 04:38] LABS: ABG ALLEN TEST YES; ARTERIAL BLOOD GAS HEMOGLOBIN 11.8 g/dL (11.7-17.4); ARTERIAL BLOOD GAS O2 CAPACITY 16.1 mL/dL (16-24); ARTERIAL BLOOD GAS O2 CONTENT 14.4 ML/dL (15-23); ARTERIAL BLOOD GAS O2 SAT 89.4 % (95-98); ARTERIAL BLOOD GAS PCO2 37 mm/Hg (35-45); ARTERIAL BLOOD GAS PH 7.43 (7.35-7.45); ARTERIAL BLOOD GAS PO2 51 mm/Hg (80-100); ARTERIAL BLOOD GAS TCO2 25.7 mmol/L (22-28)
[2017-11-01 05:23] LABS: HEMOGLOBIN 10.5 g/dL (12.0-16.0); MEAN CORPUSCULAR HEMOGLOBIN 31.5 pg (27.0-31.0); MEAN CORPUSCULAR HGB CONC 32.5 g/dL (33.0-37.0); RBC 3.34 Mil/uL (3.80-5.20); RED CELL DISTRIBUTION WIDTH 13.5 % (11.5-14.5)
[2017-11-01 05:45] LABS: BLOOD UREA NITROGEN 41 mg/dl (7-17); CALCIUM 8.6 mg/dL (8.4-10.2); GFR AFRICAN-AMERICAN > 60; GFR NON-AFRICAN AMERICAN > 60
[2017-11-01] MEDS ORDERED: Midazolam 2 MG/2 ML VIAL IV ONE (06:14)
[2017-11-01] MEDS ORDERED: Morphine 4 MG/ML VIAL IVP PRN ×2 (07:17→14:18)
[2017-11-01] MEDS ORDERED: Propofol 10 mg/ml 1,000 MG/100 ML VIAL IV SCH ×2 (07:30→23:30)
--- NOTE | 2017-11-01 08:40 | CP.PCM.PN ---
<Karl Sutton - Last Filed: 11/01/17 17:10> Subjective - Date & Time of Evaluation Date of Evaluation: 11/01/17 Time of Evaluation: 08:35 - Subjective Subjective: 82 YO Fw/ h/o HTN who has moderate sided R SD and deep R parietal occipital intraparenchymal bleed, is now a DNR/DNI. Patient remaines intubated not responding to Verbal, physical or painful stimuli. Remains in deep coma with pinpoint pupils Objective - Vital Signs/Intake and Output Vital Signs (last 24 hours): Temp Pulse Resp BP Pulse Ox 97.6 F 125 H 54 H 137/73 94 L 11/01/17 04:00 11/01/17 06:00 11/01/17 06:00 11/01/17 06:00 11/01/17 06:00 Intake and Output: 11/01/17 11/01/17 06:59 18:59 Intake Total 540 Output Total 800 Balance -260 - Medications Medications: Current Medications Acetaminophen (Tylenol 650mg/20.3ml Solution Ud) 650 mg PO Q6 PRN PRN Reason: Temperature Last Admin: 10/31/17 22:40 Dose: 650 mg Dexamethasone (Decadron Inj) 6 mg IV 0300,0900,1500,2100 DENIZ Last Admin: 11/01/17 02:03 Dose: 6 mg Levetiracetam 500 mg/ Sodium (Chloride) 105 mls @ 210 mls/hr IVPB Q12 DENIZ Last Admin: 10/31/17 21:09 Dose: 210 mls/hr Aztreonam 1 gm/ Sodium (Chloride) 100 mls @ 100 mls/hr IVPB Q8 DENIZ PRN Reason: Protocol Last Admin: 11/01/17 02:03 Dose: 100 mls/hr Propofol (Diprivan) 1,000 mg in 100 mls @ 1.837 mls/hr IV .Q24H DENIZ; 5 MCG/KG/ MIN PRN Reason: Protocol Stop: 11/02/17 07:17 Last Admin: 11/01/17 07:25 Dose: 5 mcg/kg/min, 1.837 mls/hr Insulin Human Regular (Humulin R) 0 units SC ACCU-CHECK DENIZ PRN Reason: Protocol Last Admin: 10/31/17 22:32 Dose: Not Given Labetalol HCl (Trandate) 20 mg IVP Q6H PRN PRN Reason: Systolic Blood Pressure Mannitol (Mannitol) 25 gm IV Q8@0500,1300,2300 [facility] Last Admin: 11/01/17 04:12 Dose: 25 gm Morphine Sulfate (Morphine) 4 mg IVP Q4 PRN PRN Reason: Agitation Pantoprazole Sodium (Protonix Inj) 40 mg IVP DAILY [facility] Last Admin: 10/31/17 09:11 Dose: 40 mg - Labs Labs: 11/01/17 04:55 11/01/17 04:55 PT 11.3 Seconds (9.8-13.1) 10/27/17 05:15 INR 1.0 (0.9-1.2) 10/27/17 05:15 APTT 27.2 Seconds (25.6-37.1) 10/27/17 05:15 - Head Exam Head Exam: ATRAUMATIC - Eye Exam Eye Exam: absent: PERRL Pupil Exam: absent: NORMAL ACCOMODATION, PERRL Additional comments: non reactive pupils 2 mm in size. No corneal reflex - Respiratory Exam Respiratory Exam: Clear to Ausculation Bilateral - Cardiovascular Exam Cardiovascular Exam: REGULAR RHYTHM, +S1, +S2 - GI/Abdominal Exam GI & Abdominal Exam: absent: Tenderness - Extremities Exam Extremities Exam: Pedal Edema - Neurological Exam Neurological Exam: absent: Alert, Awake, Oriented x3 Assessment and Plan - Assessment and Plan (Free Text) Assessment: 1) Right Sub dural hematoma with R intraparenchymal hemorrhage - Patient is DNR/DNI - Poor prognosis - EEG : Abn EEG, Diffusely slow -HOB elevation for now. - repeated head CT on 10/27/17 reported as similar appearances of right subdural and intraparenchymal hemorrhages with midline shif. No acute findings. -neurology on consult. recs are appreciated -Next of Kin : Genesis Barba , Hypertension -Labetalol 20 mg IVP Q6h PRN. Poor prognosis <Sargent,Aftab K - Last Filed: 11/03/17 16:42> Objective - Vital Signs/Intake and Output Vital Signs (last 24 hours): Temp Pulse Resp BP Pulse Ox 98.1 F 112 H 20 50/36 L 100 11/02/17 04:00 11/02/17 04:00 11/02/17 04:00 11/02/17 04:00 11/02/17 04:00 - Labs Labs: 11/01/17 04:55 11/01/17 04:55 PT 11.3 Seconds (9.8-13.1) 10/27/17 05:15 INR 1.0 (0.9-1.2) 10/27/17 05:15 APTT 27.2 Seconds (25.6-37.1) 10/27/17 05:15 Assessment and Plan - Assessment and Plan (Free Text) Assessment: Patient was personally seen and examined by me in rounds with residents. Available labs and diagnostic data reviewed. Case, Patient's condition and management plan discussed with residents in rounds. Agree with resident's documentation. Plan: As ordered. Aftab Sargent MD
[2017-11-01] MEDS: levETIRAcetam 500 MG in Sodium Chloride 0.9% 100 ML IVPB SCH ×2 (09:02→20:42)
[2017-11-01] MEDS ORDERED: Albuterol-Ipratrop 3 mg / 0.5 (3 ml) UD INH STA ×2 (09:15)
--- NOTE | 2017-11-01 10:07 | CP.PCM.PN ---
Subjective - Date & Time of Evaluation Date of Evaluation: 11/01/17 Time of Evaluation: 10:06 - Subjective Subjective: Ms. Miramontes was seen and examined at the bedside in ICU. She remains on mechanical ventilator on PRVC AC 12, TV 450, Peep 5, Fio2 60%. She is breathing utilizing her abdominal accessory muscles. Her respiration in the vent is 15 with a set rate of 12. She remains with pinpoint pupils and no response to pain stimuli. She is on cooling blanket with latest temp of 100.5. Her EEG showed abnormality with slowing brain activity. There was no untoward events overnight. Objective - Vital Signs/Intake and Output Vital Signs (last 24 hours): Temp Pulse Resp BP Pulse Ox 99.2 F 100 H 98 H 138/68 82 L 11/01/17 08:42 11/01/17 08:42 11/01/17 08:42 11/01/17 08:42 11/01/17 08:42 Intake and Output: 11/01/17 11/01/17 06:59 18:59 Intake Total 540 Output Total 800 Balance -260 - Medications Medications: Current Medications Acetaminophen (Tylenol 650mg/20.3ml Solution Ud) 650 mg PO Q6 PRN PRN Reason: Temperature Last Admin: 10/31/17 22:40 Dose: 650 mg Dexamethasone (Decadron Inj) 6 mg IV 0300,0900,1500,2100 DENIZ Last Admin: 11/01/17 09:03 Dose: 6 mg Levetiracetam 500 mg/ Sodium (Chloride) 105 mls @ 210 mls/hr IVPB Q12 DENIZ Last Admin: 11/01/17 09:02 Dose: 210 mls/hr Aztreonam 1 gm/ Sodium (Chloride) 100 mls @ 100 mls/hr IVPB Q8 DENIZ PRN Reason: Protocol Last Admin: 11/01/17 09:01 Dose: 100 mls/hr Propofol (Diprivan) 1,000 mg in 100 mls @ 1.837 mls/hr IV .Q24H DENIZ; 5 MCG/KG/ MIN PRN Reason: Protocol Stop: 11/02/17 07:17 Last Admin: 11/01/17 07:25 Dose: 5 mcg/kg/min, 1.837 mls/hr Insulin Human Regular (Humulin R) 0 units SC ACCU-CHECK DENIZ PRN Reason: Protocol Last Admin: 10/31/17 22:32 Dose: Not Given Labetalol HCl (Trandate) 20 mg IVP Q6H PRN PRN Reason: Systolic Blood Pressure Mannitol (Mannitol) 25 gm IV Q8@0500,1300,2300 [facility] Last Admin: 11/01/17 04:12 Dose: 25 gm Morphine Sulfate (Morphine) 4 mg IVP Q4 PRN PRN Reason: Agitation Last Admin: 11/01/17 08:55 Dose: 4 mg Pantoprazole Sodium (Protonix Inj) 40 mg IVP DAILY [facility] Last Admin: 11/01/17 09:04 Dose: 40 mg - Labs Labs: 11/01/17 04:55 11/01/17 04:55 PT 11.3 Seconds (9.8-13.1) 10/27/17 05:15 INR 1.0 (0.9-1.2) 10/27/17 05:15 APTT 27.2 Seconds (25.6-37.1) 10/27/17 05:15 - Constitutional Appears: No Acute Distress - Head Exam Head Exam: NORMAL INSPECTION - Eye Exam Pupil Exam: Fixed, Miosis - Respiratory Exam Additional comments: using accessory muscle to breath. Assessment and Plan (1) Intracranial hemorrhage Assessment & Plan: Case discussed with Dr. Mazariegos, continue all current medical regimen. Patient is a DNR/ DNI. Recommend conservative management. Status: Acute
[2017-11-01] MEDS: Insulin Regular 100 units/ml SC SCH ×3 (12:00→18:05)
--- NOTE | 2017-11-01 12:29 | CP.CCUPN ---
<Lisa Singletary - Last Filed: 11/01/17 14:40> CCU Subjective - Physician Review Subjective (Free Text): 10/31/17 82F with PMH: HTN, on Losartan, ASA; mild Dementia: admitted via ER after family c/o recent cough, body aches, vomiting and progressive lethargy. Initial eval in ER with CT brain showed moderate size R SDH and deep R parietal- occipital intraparenchymal bleed; with associated R hemispheric edema and loss of 4th ventricle. Patient orally intubated in ED after sedation with Succinylcholine and Etomidate. Patient seen and examined at bedside with hand filer balance wheel attending. Patient still in deep coma, pinpoint pupils with no reaction, no corneal reflex , no gag reflex. Patient is intubated. On PRVC: 12, 450, 5, 60 % I&O reviewed. Patient has been spiking fevers since yesterday, currently in aztreonam. Also patient has been tachypneic and tachycardic, currently in Morphine PRN. Critical Care Time Spent (in minutes): 35 CCU Objective - Vital Signs / Intake & Output Vital Signs (Last 4 hours): Vital Signs Temp Pulse Resp BP Pulse Ox 11/01/17 08:42 99.2 F 100 H 98 H 138/68 82 L Intake and Output (Last 8hrs): Intake & Output 10/31/17 11/01/17 11/01/17 22:59 06:59 14:59 Intake Total 520 360 Output Total 400 800 Balance 120 -440 Intake: IV 100 Oral 90 Tube Feeding 330 360 Output: Urine 400 800 Urethral (Cano) 400 800 - Physical Exam Head: Positive for: Atraumatic, Normocephalic Pupils: Positive for: Non-Reactive (2 mm size, midline position), Pinpoint, Other (no corneal reflexes) Conjunctiva: Negative for: Icteric Mouth: Positive for: Moist Mucous Membranes Neck: Positive for: Normal Range of Motion. Negative for: JVD Respiratory/Chest: Positive for: Clear to Auscultation, Accessory Muscle Use, Tachypneic. Negative for: Wheezes, Rales, Rhonchi Cardiovascular: Positive for: Regular Rate and Rhythm, Normal S1, S2, Tachycardic. Negative for: Murmurs, Rub Abdomen: Positive for: Normal Bowel Sounds. Negative for: Tenderness, Distention, Mass/Organomegaly Lower Extremity: Positive for: NORMAL PULSES. Negative for: CALF TENDERNESS, Cyanosis Neurological: Positive for: Other (GCS = 3T) Skin: Positive for: Warm, Dry, Normal Color. Negative for: Rashes Psychiatric: Positive for: Other (Comatose) - Medications Active Medications: Active Medications Generic Name Dose Route Start Last Admin Trade Name Freq PRN Reason Stop Dose Admin Acetaminophen 650 mg 10/31/17 15:42 10/31/17 22:40 Tylenol 650mg/20.3ml Solution Ud PO 650 mg Q6 PRN Administration Temperature Dexamethasone 6 mg 10/28/17 22:00 11/01/17 09:03 Decadron Inj IV 6 mg 0300,0900,1500,2100 DENIZ Administration Levetiracetam 500 mg/ Sodium 105 mls @ 210 mls/hr 10/26/17 21:00 11/01/17 09: 02 Chloride IVPB 210 mls/hr Q12 DENIZ Administration Aztreonam 1 gm/ Sodium 100 mls @ 100 mls/hr 10/30/17 17:00 11/01/17 09:01 Chloride IVPB 100 mls/hr Q8 DENIZ Administration Protocol Propofol 1,000 mg in 100 mls @ 1.837 mls/hr 11/01/17 07:30 11/01/17 07:25 Diprivan IV 11/02/17 07:17 5 mcg/kg/min .Q24H DNEIZ 1.837 mls/hr Protocol Administration 5 MCG/KG/MIN Insulin Human Regular 0 units 10/26/17 23:00 10/31/17 22:32 Humulin R SC Not Given ACCU-CHECK DENIZ Protocol Labetalol HCl 20 mg 10/26/17 17:53 Trandate IVP Q6H PRN Systolic Blood Pressure Mannitol 25 gm 10/27/17 05:00 11/01/17 04:12 Mannitol IV 25 gm Q8@0500,1300,2300 DENIZ Administration Morphine Sulfate 4 mg 11/01/17 07:17 11/01/17 08:55 Morphine IVP 4 mg Q4 PRN Administration Agitation Pantoprazole Sodium 40 mg 10/26/17 17:45 11/01/17 09:04 Protonix Inj IVP 40 mg DAILY DENIZ Administration - Patient Studies Lab Studies: Microbiology Studies 10/26/17 14:34 Blood Culture - Final Blood NO GROWTH AFTER 5 DAYS Gram Stain - Final TEST NOT PERFORMED Lab Studies 11/01/17 11/01/17 11/01/17 Range/Units 11:29 05:27 04:55 WBC (4.8-10.8) K/uL RBC (3.80-5.20) Mil/uL Hgb (12.0-16.0) g/dL Hct (34.0-47.0) % MCV (81.0-99.0) fl MCH (27.0-31.0) pg MCHC (33.0-37.0) g/dL RDW (11.5-14.5) % Plt Count (130-400) K/uL pCO2 (35-45) mm/Hg pO2 (80-100) mm/Hg HCO3 (21-28) mmol/L ABG pH (7.35-7.45) ABG Total CO2 (22-28) mmol/L ABG O2 Saturation (95-98) % ABG O2 Content (15-23) ML/dL ABG Base Excess (-2.0-3.0) mmol/L ABG Hemoglobin (11.7-17.4) g/dL ABG Carboxyhemoglobin (0.5-1.5) % POC ABG HHb (Measured) (0.0-5.0) % ABG Methemoglobin (0.0-3.0) % ABG O2 Capacity (16-24) mL/dL Jed Test A-a O2 Difference mm/Hg Hgb O2 Saturation (95.0-98.0) % Vent Mode Mechanical Rate FiO2 % Tidal Volume PEEP Sodium 155 H (132-148) mmol/l Potassium 4.1 (3.6-5.0) MMOL/L Chloride 117 H (98-107) mmol/L Carbon Dioxide 25 (22-30) mmol/L Anion Gap 17 (10-20) BUN 41 H (7-17) mg/dl Creatinine 0.8 (0.7-1.2) mg/dl Est GFR ( Amer) > 60 Est GFR (Non-Af Amer) > 60 POC Glucose (mg/dL) 266 H 281 H (65-110) mg/dL Random Glucose 272 H (65-105) mg/dL Calcium 8.6 (8.4-10.2) mg/dL 11/01/17 11/01/17 10/31/17 Range/Units 04:55 04:31 21:23 WBC 4.0 L (4.8-10.8) K/uL RBC 3.34 L (3.80-5.20) Mil/uL Hgb 10.5 L (12.0-16.0) g/dL Hct 32.4 L (34.0-47.0) % MCV 97.0 D (81.0-99.0) fl MCH 31.5 H (27.0-31.0) pg MCHC 32.5 L (33.0-37.0) g/dL RDW 13.5 (11.5-14.5) % Plt Count 129 L (130-400) K/uL pCO2 37 (35-45) mm/Hg pO2 51 L (80-100) mm/Hg HCO3 25.0 (21-28) mmol/L ABG pH 7.43 (7.35-7.45) ABG Total CO2 25.7 (22-28) mmol/L ABG O2 Saturation 89.4 L (95-98) % ABG O2 Content 14.4 L (15-23) ML/dL ABG Base Excess 0.4 (-2.0-3.0) mmol/L ABG Hemoglobin 11.8 (11.7-17.4) g/dL ABG Carboxyhemoglobin 1.2 (0.5-1.5) % POC ABG HHb (Measured) 10.3 H (0.0-5.0) % ABG Methemoglobin 1.6 (0.0-3.0) % ABG O2 Capacity 16.1 (16-24) mL/dL Jed Test Yes A-a O2 Difference 331.0 mm/Hg Hgb O2 Saturation 87.0 L (95.0-98.0) % Vent Mode A/c Mechanical Rate 12 FiO2 60.0 % Tidal Volume 450 PEEP 5 Sodium (132-148) mmol/l Potassium (3.6-5.0) MMOL/L Chloride (98-107) mmol/L Carbon Dioxide (22-30) mmol/L Anion Gap (10-20) BUN (7-17) mg/dl Creatinine (0.7-1.2) mg/dl Est GFR ( Amer) Est GFR (Non-Af Amer) POC Glucose (mg/dL) 226 H (65-110) mg/dL Random Glucose (65-105) mg/dL Calcium (8.4-10.2) mg/dL 10/31/17 Range/Units 16:20 WBC (4.8-10.8) K/uL RBC (3.80-5.20) Mil/uL Hgb (12.0-16.0) g/dL Hct (34.0-47.0) % MCV (81.0-99.0) fl MCH (27.0-31.0) pg MCHC (33.0-37.0) g/dL RDW (11.5-14.5) % Plt Count (130-400) K/uL pCO2 (35-45) mm/Hg pO2 (80-100) mm/Hg HCO3 (21-28) mmol/L ABG pH (7.35-7.45) ABG Total CO2 (22-28) mmol/L ABG O2 Saturation (95-98) % ABG O2 Content (15-23) ML/dL ABG Base Excess (-2.0-3.0) mmol/L ABG Hemoglobin (11.7-17.4) g/dL ABG Carboxyhemoglobin (0.5-1.5) % POC ABG HHb (Measured) (0.0-5.0) % ABG Methemoglobin (0.0-3.0) % ABG O2 Capacity (16-24) mL/dL Jed Test A-a O2 Difference mm/Hg Hgb O2 Saturation (95.0-98.0) % Vent Mode Mechanical Rate FiO2 % Tidal Volume PEEP Sodium (132-148) mmol/l Potassium (3.6-5.0) MMOL/L Chloride (98-107) mmol/L Carbon Dioxide (22-30) mmol/L Anion Gap (10-20) BUN (7-17) mg/dl Creatinine (0.7-1.2) mg/dl Est GFR ( Amer) Est GFR (Non-Af Amer) POC Glucose (mg/dL) 211 H (65-110) mg/dL Random Glucose (65-105) mg/dL Calcium (8.4-10.2) mg/dL Laboratory Results - last 24 hr 10/31/17 10/31/17 11/01/17 16:20 21:23 04:31 WBC RBC Hgb Hct MCV MCH MCHC RDW Plt Count pCO2 37 pO2 51 L HCO3 25.0 ABG pH 7.43 ABG Total CO2 25.7 ABG O2 Saturation 89.4 L ABG O2 Content 14.4 L ABG Base Excess 0.4 ABG Hemoglobin 11.8 ABG Carboxyhemoglobin 1.2 POC ABG HHb (Measured) 10.3 H ABG Methemoglobin 1.6 ABG O2 Capacity 16.1 Jed Test Yes A-a O2 Difference 331.0 Hgb O2 Saturation 87.0 L Vent Mode A/c Mechanical Rate 12 FiO2 60.0 Tidal Volume 450 PEEP 5 Sodium Potassium Chloride Carbon Dioxide Anion Gap BUN Creatinine Est GFR ( Amer) Est GFR (Non-Af Amer) POC Glucose (mg/dL) 211 H 226 H Random Glucose Calcium 11/01/17 11/01/17 11/01/17 04:55 04:55 05:27 WBC 4.0 L RBC 3.34 L Hgb 10.5 L Hct 32.4 L MCV 97.0 D MCH 31.5 H MCHC 32.5 L RDW 13.5 Plt Count 129 L pCO2 pO2 HCO3 ABG pH ABG Total CO2 ABG O2 Saturation ABG O2 Content ABG Base Excess ABG Hemoglobin ABG Carboxyhemoglobin POC ABG HHb (Measured) ABG Methemoglobin ABG O2 Capacity Jed Test A-a O2 Difference Hgb O2 Saturation Vent Mode Mechanical Rate FiO2 Tidal Volume PEEP Sodium 155 H Potassium 4.1 Chloride 117 H Carbon Dioxide 25 Anion Gap 17 BUN 41 H Creatinine 0.8 Est GFR ( Amer) > 60 Est GFR (Non-Af Amer) > 60 POC Glucose (mg/dL) 281 H Random Glucose 272 H Calcium 8.6 11/01/17 11:29 WBC RBC Hgb Hct MCV MCH MCHC RDW Plt Count pCO2 pO2 HCO3 ABG pH ABG Total CO2 ABG O2 Saturation ABG O2 Content ABG Base Excess ABG Hemoglobin ABG Carboxyhemoglobin POC ABG HHb (Measured) ABG Methemoglobin ABG O2 Capacity Jed Test A-a O2 Difference Hgb O2 Saturation Vent Mode Mechanical Rate FiO2 Tidal Volume PEEP Sodium Potassium Chloride Carbon Dioxide Anion Gap BUN Creatinine Est GFR ( Amer) Est GFR (Non-Af Amer) POC Glucose (mg/dL) 266 H Random Glucose Calcium Fingerstick Blood Sugar Results: 226 Review of Systems - Review of Systems Review of Systems: unable to assess because comatose status, and intubated Assessment/Plan - Assessment and Plan (Free Text) Plan: R SDH ( nontraumatic) with R intraparenchymal Hemorrhage -As per Neurosurgery no surgical intervention recommended. Continue with medical management. Poor prognosis. -HOB elevation for now. -c/w Mannitol -c/w Decadron -trial at Hyperventilation to PCO2 approx 28-30 -Neurochecks, Seizure precautions -Re-position ETT 3 cm upward; NGT gastric decompression. -Keep Systolic BP no higher than 140 - EEG reported as markedly suppressed EEG activity. Read by neuro. -CXR today showed no significant changes from prior xray. Pending official report - repeated head CT on 10/27/17 reported as similar appearances of right subdural and intraparenchymal hemorrhages with midline shif. No acute findings. -will discuss with next on kin, Granddaughter: Genesis Jameson, DNR status. -Attending hand filer balance wheel, Dr. Hernandez, spoke with Genesis, next of kin, about patient poor prognosis, and she is considering comfort care. -neurology on consult. recs are appreciated -Head CT on admission reported R SDH ( nontraumatic) with R intraparenchymal Hemorrhage with local edema and midline shift, obliteration of 4th ventricle, and blood seen in left lateral ventricle. -Next of Kin : Genesis Chavezsue , Tachypnea -also being tachycardic, and spiking fevers w/o leukocytosis -most likely [employer] etiology from extensive cerebral -Morphine 4 mg IV PRN -On propofol -s/p Ativan once -s/p fentanyl once -s/p duoneb x 2 Hypertension -Labetalol 20 mg IVP Q6h PRN. Influenza infection -positive influenza test on admission -completed Oseltamivir treatment Prophylaxis -Stress ulcer precautions : protonix 40 mg IVP daily. -DVT prophylaxis : SCDs. Right intraparenchymal hemorrhage. -Pressure ulcers precautions - Date & Time Date: 11/01/17 Time: 08:45 <Seb Nuñez - Last Filed: 11/01/17 18:01> CCU Subjective - Physician Review Subjective (Free Text): Attestation: Patient seen and examined at the bedside with Resident Dr. Melva Singletary; and I agree with her outline of plans and management documented above as discussed on AM rounds reflecting my review of all applicable clinical data, and participation in the care of the patient throughout the day in ICU; October. Time spent with this patient did not overlap with any other provider's medical or critical care time. Additionally the code selected for the services rendered in this note includes the time spent: talking to the patients family, associated physicians and reviewing hospital data/results not listed here which extended to a total of 35 minutes. Critical Care Progress Note - Ventilator Checklist Head of Bed 30 Degrees: Yes Daily Sedation Vacation: Yes Daily Assessment of Readiness to Wean: Yes Daily Spontaneous Breathing Trial: Yes PUD Prophalyxis: Yes DVT Prophylaxis: Yes Oral Care with Chlorhexidine Gluconate {CHG}: Yes - Vent Settings MODE:: ASSIST CONTROL TIDAL VOLUME:: 450 RESP RATE:: 12 FIO2:: 60 PEEP:: 5 - Extremities/Vascular Does the Patient have a Cano Catheter?: Yes Does the Patient need a Cano Catheter?: Yes Catheter Insertion Criteria: Need for accurate measurement of output in critically ill patient - Prophylaxis GI Prophylaxis GI: PPI - Prophylaxis DVT Prophylaxis DVT: SCDs
[2017-11-01] MEDS: Acetaminophen 650mg/20.3ml solution UD PO PRN (14:51)
--- NOTE | 2017-11-01 15:06 | RAD ---
HISTORY: intubation/mech ventilation COMPARISON: Multiple serial examinations preceding the most recent study: October 31, 2017. FINDINGS: LUNGS: Atelectasis/infiltrate with air bronchograms retrocardiac region left lower lobe a new finding. PLEURA: No significant pleural effusion identified, no pneumothorax apparent. CARDIOVASCULAR: No radiographic findings to suggest acute or significant cardiovascular disease. OSSEOUS STRUCTURES: No significant abnormalities. VISUALIZED UPPER ABDOMEN: Normal. OTHER FINDINGS: Stable position of support apparatus including endotracheal tube and nasogastric tube. IMPRESSION: Evolving left lower lobe infiltrate.
[2017-11-02] MEDS: Insulin Regular 100 units/ml SC SCH (00:11)
[2017-11-02] MEDS: Aztreonam 1 GM in Sodium Chloride 0.9% 100 ML IVPB SCH (01:05)
[2017-11-02] MEDS ORDERED: Sodium Chloride 0.9% 500 ML IV ONE ×3 (01:09→01:46)
[2017-11-02] MEDS ORDERED: Sodium Chloride 0.9% 1,000 ML IV SCH (03:15)
[2017-11-02 04:03] VITALS: O2SAT 100
--- NOTE | 2017-11-02 04:54 | CP.PCM.PRO ---
Pronouncement of Note - Clinical Findings Physical Exam: No Response Verbal/Painful Stimuli, Absent Peripheral Pulses{ Carotid & Femoral}, Absent Heart & Breath Sounds, No Pupillary Light Reflex, No Corneal Reflex, Pupils Fixed & Dilated, Absence of Vital Signs - Pronouncement Time Time of Pronouncement of : 04:12 - Notifications Pronouncement Notifications: Family Notified, Atending Notified Benefits Representative Notified: No - Autopsy Autopsy Requested: No [place] [id number] Additional Comments: The patient was DNR/DNI
[2017-11-02 05:26] VITALS: BP 50/36; PULSE 112; RESP 20; TEMP 98.1
== END 2017-11-02 04:12 | DRG 65 ==
LOC: H.ER 13:35 → H.ERHOLD 16:09 → H.ICU/CCU 17:47
PROVIDERS: ADMIT Internal Medicine; ATTEND Internal Medicine
PROC: 5A1955Z Respiratory Ventilation, Greater than 96 Consecutive Hours (ICD-10-PCS; principal; 2017-10-26)
PROC: 0BH17EZ Insertion of Endotracheal Airway into Trachea, Via Natural or Artificial Opening (ICD-10-PCS; 2017-10-26)
PROC: 30233L1 Transfusion of Nonautologous Fresh Plasma into Peripheral Vein, Percutaneous Approach (ICD-10-PCS; 2017-10-27)
DX: I61.1 Nontraumatic intracerebral hemorrhage in hemisphere, cortical (principal); N39.0 Urinary tract infection, site not specified; J98.11 Atelectasis; I60.9 Nontraumatic subarachnoid hemorrhage, unspecified; J11.1 Influenza due to unidentified influenza virus with other respiratory manifestations; F03.90 Unspecified dementia, unspecified severity, without behavioral disturbance, psychotic disturbance, mood disturbance, and anxiety; B96.20 Unspecified Escherichia coli [E. coli] as the cause of diseases classified elsewhere; R40.2430 Glasgow coma scale score 3-8, unspecified time; R09.02 Hypoxemia; I10 Essential (primary) hypertension; M81.0 Age-related osteoporosis without current pathological fracture; E78.00 Pure hypercholesterolemia, unspecified; D64.9 Anemia, unspecified; F41.9 Anxiety disorder, unspecified; Z66 Do not resuscitate; Z88.0 Allergy status to penicillin; Z79.83 Long term (current) use of bisphosphonates